=== PATIENT | female | born 1940 | race Caucasian/White ===

== ENCOUNTER → 2016-12-12 | Outpatient (REF) | payer OTHER ==
[2016-12-12 21:10] LABS: CREATININE FOR GFR 1.03 MG/DL (0.55-1.02); GLOMERULAR FILTRATION RATE 55.8 (>39)
== END ==
LOC: M LABDRWAD 20:40
PROVIDERS: ATTEND Orthopaedic Surgery
DX: M25.511 Pain in right shoulder (principal)

== ENCOUNTER → 2017-07-03 | Outpatient (REF) | payer OTHER ==
[2017-07-03 15:50] LABS: BASO % 0.3 % (0.0-1.0); EOS # 0.1 K/mm3 (0.0-0.50); LARGE UNSTAINED CELL # 0.4 K/mm3 (0.0-0.4); LARGE UNSTAINED CELL % 4.6 % (0.0-4.0); LYMPH # 2.5 K/mm3 (1.5-4.5); LYMPH % 27.3 % (24.0-44.0); MEAN CORPUSCULAR HEMOGLOBIN 30.7 pg (27.0-33.0); MEAN CORPUSCULAR VOLUME 93.1 fl (80.0-96.0); MONO # 0.7 K/mm3 (0.0-0.8); MONO % 8.4 % (0.0-5.0); NEUTROPHILS # 4.6 K/mm3 (1.8-7.7); NEUTROPHILS % 58.4 % (36.0-66.0); PLATELET COUNT, AUTOMATED 287 k/mm3 (150-450); RED CELL DISTRIBUTION WIDTH 13.3 % (11.5-14.5); WHITE BLOOD COUNT 7.9 K/mm3 (4.0-10.0)
[2017-07-03 16:28] LABS: ALBUMIN 3.5 GM/DL (3.2-5.2); ALBUMIN/GLOBULIN RATIO 1.03 (1.00-1.93); ALKALINE PHOSPHATASE 53 U/L (45-117); ALT/SGPT 21 U/L (12-78); ANION GAP 12 MEQ/L (8-16); AST/SGOT 19 U/L (15-37); BILIRUBIN,TOTAL 0.3 MG/DL (0.2-1.0); BLOOD UREA NITROGEN 12 MG/DL (7-18); CALCIUM LEVEL 8.5 MG/DL (8.8-10.2); CARBON DIOXIDE LEVEL 24 MEQ/L (21-32); CHLORIDE LEVEL 109 MEQ/L (98-107); CREATININE FOR GFR 0.77 MG/DL (0.55-1.02); GLOMERULAR FILTRATION RATE > 60.0 (>39); GLUCOSE, FASTING 97 MG/DL (83-110); POTASSIUM SERUM 4.2 MEQ/L (3.5-5.1); SODIUM LEVEL 145 MEQ/L (136-145); TOTAL PROTEIN 6.9 GM/DL (6.4-8.2)
[2017-07-06 00:06] LABS: Lyme Disease IgG/IgM Antibodie <0.91 ISR (0.00-0.90); Lyme Disease IgM Ab Quantitati <0.80 index (0.00-0.79)
== END ==
LOC: M LABDRAW1 13:36
PROVIDERS: ATTEND Internal Medicine Rheumatology
DX: R53.83 Other fatigue (principal); Z11.59 Encounter for screening for other viral diseases

== ENCOUNTER → 2018-04-21 | Outpatient (CLI) | payer OTHER | LOC: M ADAMS 13:00 | DX: R06.02 Shortness of breath (principal); R05 Cough | CPT/HCPCS: 71046 ==

== ENCOUNTER 2018-09-24 07:35 | Day surgery (SDC) | payer OTHER ==
[2018-09-24] MEDS: LIDOCAINE 1% SDV 5 ML VIAL As Ordered (06:41)
[~2018-09-24 07:35] MED LIST: ACETAMINOPHEN 325 MG TAB PO; PHENYLEPHRINE HCL 10 % OPHTH. SOL 5ML OS; PROPARACAINE 0.5% OPHTH SOL 15ML OS
[2018-09-24 08:11] LABS: BEDSIDE GLUCOSE 132 MG/DL (83-110)
[2018-09-24] MEDS: CYCLOPENTOLATE 2% OPHTH SOLN 2ML BTL OS (08:35)
[2018-09-24] MEDS: LIDOCAINE 3.5 % 1ML OPHTH TOPICAL GEL OU (08:35)
[2018-09-24] MEDS: OFLOXACIN 0.3 % (OCUFLOX) OPTH SOL 5ML OS (08:35)
[2018-09-24] MEDS: PHENYLEPHRINE 2.5% OPHTH SOL 2ML OS (08:35)
[2018-09-24] MEDS: TROPICAMIDE 1% OPHTH SOLN 2ML OS (08:35)
[2018-09-24] MEDS ORDERED: fentaNYL 100 MCG/2 ML INJECTION (J3010) As Ordered (09:07)
[2018-09-24] MEDS ORDERED: MIDAZOLAM INJ 2 MG/2 ML VIAL (J2250) As Ordered (09:07)
[2018-09-24] MEDS: POVIDONE-IODINE 5% OPHTH PREP SOL 30ML As Ordered (09:43)
[2018-09-24] MEDS: MOXIFLOXACIN IN BSS 0.25MG/0.25ML INTRACAMERAL INJ (OR EYE ONLY)(J2280) As Ordered (09:44)
[2018-09-24] MEDS: HEALON DUET (HEALON 10MG/ML 0.55ML & HEALON ENDOCOAT 30MG/ML 0.85ML) As Ordered (09:44)
[2018-09-24] MEDS: BSS with VANC/TOB/EPI for EYE CASES IR (09:45)
[2018-09-24] MEDS: CEFUROXIME 1MG/0.1ML INTRACAMERAL INJ As Ordered (09:45)
[2018-09-24] MEDS: TRIAMCINOLONE PRES FR 40 MG/ML 1ML(TRIESENCE)(OR EYE ONLY)(J3300 PER 1MG) As Ordered (09:45)
[2018-09-24] MEDS ORDERED: AcetaZOLAMIDE 500 MG ER CAP As Ordered (10:16)
[2018-09-24] MEDS: AcetaZOLAMIDE 500 MG ER CAP PO (10:19)
[2018-09-24] MEDS: KETOROLAC 0.5% OPHTH SOLN OS (10:19)
[2018-09-24] MEDS ORDERED: TRIMETHOBENZAMIDE 300 MG CAP PO (10:30)
== END 2018-09-24 10:32 | disposition home or self-care (01) ==
LOC: M SDC 07:35
DX: H26.9 Unspecified cataract (principal); H40.812 Glaucoma with increased episcleral venous pressure, left eye; E78.5 Hyperlipidemia, unspecified; I65.23 Occlusion and stenosis of bilateral carotid arteries; I10 Essential (primary) hypertension; E11.9 Type 2 diabetes mellitus without complications; E03.9 Hypothyroidism, unspecified; Z79.899 Other long term (current) drug therapy
CPT/HCPCS: 66984

== ENCOUNTER → 2019-05-25 | Outpatient (REF) | payer OTHER ==
[~2019-05-25] MED LIST changes: -ACETAMINOPHEN 325 MG TAB PO; +ASPI81TA85 PO; +ATOR1TAB19 PO; +CBD oil PO; +CLOB05OI TOP; +FLON1SPR NARES; +GLUC15002 PO; +LEVO50TA5 PO; +LISI-538 PO; +MECL12.575 PO; -PHENYLEPHRINE HCL 10 % OPHTH. SOL 5ML OS; +POLY33503 PO; -PROPARACAINE 0.5% OPHTH SOL 15ML OS; +SPIR-10 PO
[2019-05-25 12:43] LABS: BASO # 0.1 10^3/uL (0.0-0.2); BASO % 0.8 % (0.0-1.0); EOS # 0.2 10^3/uL (0.0-0.50); EOS % 2.4 % (0.0-3.0); HEMATOCRIT 43.2 % (36.0-47.0); HEMOGLOBIN 13.8 g/dl (12.0-15.5); LYMPH # 2.2 10^3/uL (1.5-4.5); LYMPH % 28.3 % (24.0-44.0); MEAN CORPUSCULAR HEMOGLOBIN 30.5 pg (27.0-33.0); MEAN CORPUSCULAR HGB CONC 31.9 g/dl (32.0-36.5); MEAN CORPUSCULAR VOLUME 95.6 fl (80.0-96.0); MONO # 0.7 10^3/uL (0.0-0.8); NEUTROPHILS # 4.7 10^3/uL (1.8-7.7); NEUTROPHILS % 59.1 % (36.0-66.0); PLATELET COUNT, AUTOMATED 315 10^3/uL (150-450); RED BLOOD COUNT 4.52 10^6/uL (4.00-5.40); WHITE BLOOD COUNT 7.9 10^3/uL (4.0-10.0)
[2019-05-25 12:57] LABS: ALBUMIN 3.7 GM/DL (3.2-5.2); ALT/SGPT 69 U/L (12-78); BILIRUBIN,TOTAL 0.4 MG/DL (0.2-1.0); BLOOD UREA NITROGEN 17 MG/DL (7-18); CALCIUM LEVEL 8.8 MG/DL (8.8-10.2); CARBON DIOXIDE LEVEL 29 MEQ/L (21-32); CHLORIDE LEVEL 107 MEQ/L (98-107); CHOLESTEROL LEVEL 108 MG/DL (<200); CHOLESTEROL RISK RATIO 3.176 (<5); CREATININE FOR GFR 0.85 MG/DL (0.55-1.30); GLOMERULAR FILTRATION RATE > 60.0 (>39); GLUCOSE, FASTING 131 MG/DL (70-100); HDL CHOLESTEROL 34 MG/DL (>40); LDL CHOLESTEROL 58 MG/DL (<100); NON-HDL-C 74 MG/DL; SODIUM LEVEL 141 MEQ/L (136-145); TOTAL PROTEIN 6.9 GM/DL (6.4-8.2); TRIGLYCERIDES LEVEL 81 MG/DL (<150)
== END ==
LOC: M LABDRWAD 12:03
PROVIDERS: ATTEND Family Medicine
DX: E11.9 Type 2 diabetes mellitus without complications (principal); E03.9 Hypothyroidism, unspecified; E78.5 Hyperlipidemia, unspecified; I10 Essential (primary) hypertension; R42 Dizziness and giddiness

== ENCOUNTER → 2019-12-14 | Outpatient (REF) | payer MEDICARE ==
[~2019-12-14] MED LIST changes: -MECL12.575 PO; +MECL12.589 PO
[2019-12-14 12:56] LABS: BASO % 0.5 % (0.0-1.0); EOS # 0.1 10^3/uL (0.0-0.5); EOS % 1.2 % (0.0-3.0); HEMATOCRIT 45.8 % (36.0-47.0); HEMOGLOBIN 13.8 g/dl (12.0-15.5); LYMPH # 2.2 10^3/uL (1.5-5.0); LYMPH % 27.7 % (24.0-44.0); MEAN CORPUSCULAR HEMOGLOBIN 27.8 pg (27.0-33.0); MEAN CORPUSCULAR HGB CONC 30.1 g/dl (32.0-36.5); MEAN CORPUSCULAR VOLUME 92.3 fl (80.0-96.0); MONO # 0.8 10^3/uL (0.0-0.8); MONO % 10.4 % (0.0-5.0); NEUTROPHILS # 4.8 10^3/uL (1.5-8.5); NEUTROPHILS % 59.7 % (36.0-66.0); PLATELET COUNT, AUTOMATED 329 10^3/uL (150-450); RED BLOOD COUNT 4.96 10^6/uL (4.00-5.40); WHITE BLOOD COUNT 8.1 10^3/uL (4.0-10.0)
[2019-12-14 13:16] LABS: ALBUMIN 3.6 GM/DL (3.2-5.2); ALT/SGPT 18 U/L (12-78); BILIRUBIN,TOTAL 0.4 MG/DL (0.2-1.0); BLOOD UREA NITROGEN 16 MG/DL (7-18); CALCIUM LEVEL 8.8 MG/DL (8.8-10.2); CARBON DIOXIDE LEVEL 29 MEQ/L (21-32); CHLORIDE LEVEL 107 MEQ/L (98-107); CHOLESTEROL LEVEL 126 MG/DL (<200); CREATININE FOR GFR 0.86 MG/DL (0.55-1.30); GLOMERULAR FILTRATION RATE > 60.0 (>39); GLUCOSE, FASTING 136 MG/DL (70-100); HDL CHOLESTEROL 35 MG/DL (>40); LDL CHOLESTEROL 73 MG/DL (<100); NON-HDL-C 91 MG/DL; POTASSIUM SERUM 4.7 MEQ/L (3.5-5.1); SODIUM LEVEL 139 MEQ/L (136-145); TRIGLYCERIDES LEVEL 88 MG/DL (<150)
[2019-12-14 13:32] LABS: MALB URINE SIEMENS 10.9 MG/L; MAU/CREAT RATIO 9.2 MCG/MG (0.0-30.0)
== END ==
LOC: M LAB REF 12:31
PROVIDERS: ATTEND Family Medicine
DX: E11.9 Type 2 diabetes mellitus without complications (principal); I10 Essential (primary) hypertension

== ENCOUNTER → 2020-09-01 | Outpatient (REF) | payer MEDICARE ==
[~2020-09-01] MED LIST changes: -ASPI81TA85 PO; +ASPI81TA86 PO
[2020-09-01 17:53] LABS: BASO # 0.1 10^3/uL (0.0-0.2); BASO % 0.7 % (0.0-1.0); EOS # 0.2 10^3/uL (0.0-0.5); EOS % 2.2 % (0.0-3.0); HEMATOCRIT 42.8 % (36.0-47.0); HEMOGLOBIN 13.2 g/dl (12.0-15.5); LYMPH # 3.2 10^3/uL (1.5-5.0); LYMPH % 32.1 % (24.0-44.0); MEAN CORPUSCULAR HGB CONC 30.8 g/dl (32.0-36.5); MEAN CORPUSCULAR VOLUME 97.3 fl (80.0-96.0); MONO # 1.1 10^3/uL (0.0-0.8); MONO % 11.1 % (0.0-5.0); NEUTROPHILS # 5.4 10^3/uL (1.5-8.5); NEUTROPHILS % 53.4 % (36.0-66.0); PLATELET COUNT, AUTOMATED 375 10^3/uL (150-450); WHITE BLOOD COUNT 10.1 10^3/uL (4.0-10.0)
[2020-09-01 18:10] LABS: ALBUMIN 3.5 GM/DL (3.2-5.2); ALT/SGPT 19 U/L (12-78); BILIRUBIN,TOTAL 0.4 MG/DL (0.2-1.0); BLOOD UREA NITROGEN 15 MG/DL (7-18); CALCIUM LEVEL 9.2 MG/DL (8.8-10.2); CARBON DIOXIDE LEVEL 31 MEQ/L (21-32); CHLORIDE LEVEL 107 MEQ/L (98-107); CHOLESTEROL LEVEL 150 MG/DL (<200); CHOLESTEROL RISK RATIO 3.947 (<5); CREATININE FOR GFR 0.93 MG/DL (0.55-1.30); GLOMERULAR FILTRATION RATE > 60.0 (>39); GLUCOSE, FASTING 128 MG/DL (70-100); HDL CHOLESTEROL 38 MG/DL (>40); LDL CHOLESTEROL 88 MG/DL (<100); NON-HDL-C 112 MG/DL; POTASSIUM SERUM 4.9 MEQ/L (3.5-5.1); SODIUM LEVEL 142 MEQ/L (136-145); TOTAL PROTEIN 7.1 GM/DL (6.4-8.2); TRIGLYCERIDES LEVEL 119 MG/DL (<150)
[2020-09-01 18:36] LABS: MALB URINE SIEMENS 5.7 MG/L
== END ==
LOC: M LABDRWAD 16:21
PROVIDERS: ATTEND Nurse Practitioner Family
DX: I10 Essential (primary) hypertension (principal); E78.5 Hyperlipidemia, unspecified; E03.9 Hypothyroidism, unspecified

== ENCOUNTER → 2020-12-14 | Outpatient (REF) | payer MEDICARE ==
[~2020-12-14] MED LIST changes: -LISI-538 PO; +LISI20TA33 PO; -MECL12.589 PO; +MECL12.590 PO
[2020-12-14 17:18] LABS: BASO % 0.5 % (0.0-1.0); EOS # 0.2 10^3/uL (0.0-0.5); EOS % 1.9 % (0.0-3.0); HEMATOCRIT 43.6 % (36.0-47.0); HEMOGLOBIN 13.3 g/dl (12.0-15.5); LYMPH # 2.2 10^3/uL (1.5-5.0); LYMPH % 26.1 % (24.0-44.0); MEAN CORPUSCULAR HGB CONC 30.5 g/dl (32.0-36.5); MONO # 0.8 10^3/uL (0.0-0.8); MONO % 9.5 % (0.0-5.0); NEUTROPHILS # 5.1 10^3/uL (1.5-8.5); NEUTROPHILS % 61.5 % (36.0-66.0); PLATELET COUNT, AUTOMATED 305 10^3/uL (150-450); RED BLOOD COUNT 4.59 10^6/uL (4.00-5.40); WHITE BLOOD COUNT 8.2 10^3/uL (4.0-10.0)
[2020-12-14 17:39] LABS: ALBUMIN 3.7 GM/DL (3.2-5.2); ALT/SGPT 19 U/L (12-78); BILIRUBIN,TOTAL 0.3 MG/DL (0.2-1.0); BLOOD UREA NITROGEN 18 MG/DL (7-18); C REACTIVE PROTEIN QUANTITATIV 0.56 MG/DL (0.00-0.30); CALCIUM LEVEL 9.3 MG/DL (8.8-10.2); CARBON DIOXIDE LEVEL 28 MEQ/L (21-32); CHLORIDE LEVEL 102 MEQ/L (98-107); CREATININE FOR GFR 0.93 MG/DL (0.55-1.30); GLOMERULAR FILTRATION RATE > 60.0 (>39); GLUCOSE, FASTING 140 MG/DL (70-100); SODIUM LEVEL 138 MEQ/L (136-145); TOTAL PROTEIN 6.9 GM/DL (6.4-8.2)
[2020-12-14 18:00] LABS: HEPATITIS B SURFACE ANTIGEN NEGATIVE (NEGATIVE)
[2020-12-14 18:20] LABS: ERYTHROCYTE SEDIMENTATION RATE 22 mm/hr (0-30)
== END ==
LOC: M SFHCRHEU 12:20
PROVIDERS: ATTEND Internal Medicine
DX: L40.50 Arthropathic psoriasis, unspecified (principal)

== ENCOUNTER 2020-12-26 12:12 | Outpatient (CLI) | payer MEDICARE ==
[~2020-12-26] VITALS: Ht 170.2 cm; Wt 85.4 kg
[2020-12-26] VITALS (8 sets, daily range): BP systolic 139–170; BP diastolic 64–84
[~2020-12-26 12:12] MED LIST changes: +ALBUTEROL SULFATE 2.5 MG/0.5 ML INH NEB SOLN INH PRN; +EPINEPHrine INJ 1 MG/ML 1ML AMP IM PRN; +diphenhydrAMINE 50MG/ML VIAL (J1200) IV PRN; +methylPREDNISolone 125MG 2ML VIAL IV PRN
[2020-12-26] MEDS ORDERED: NS 1,000 ML IV SCH (12:30)
[2020-12-26] MEDS ORDERED: ACETAMINOPHEN 650MG PO PRIOR TO INFUSION PO ONE (12:30)
[2020-12-26] MEDS ORDERED: INFLIXIMAB BIOSIMILAR 400 MG in NS 210 ML IV ONE (12:30)
[2020-12-26] MEDS ORDERED: diphenhydrAMINE 25MG PO PRIOR TO INFUSION PO ONE (12:30)
== END 2020-12-26 16:20 | disposition home or self-care (01) ==
LOC: M INFU 12:12
PROVIDERS: ATTEND Internal Medicine
DX: L40.50 Arthropathic psoriasis, unspecified (principal)
CPT/HCPCS: 96365; 96366; Q5103

== ENCOUNTER 2021-01-09 12:56 | Outpatient (CLI) | payer MEDICARE ==
[2021-01-09] VITALS (8 sets, daily range): BP systolic 128–156; BP diastolic 67–77
[~2021-01-09] VITALS: Ht 170.2 cm; Wt 85.4 kg
[2021-01-09] MEDS ORDERED: ACETAMINOPHEN TAB 650MG DOSE (2X325MG) PO ONE (13:30)
[2021-01-09] MEDS ORDERED: diphenhydrAMINE 25MG CAP PO ONE (13:30)
[2021-01-09] MEDS ORDERED: INFLIXIMAB BIOSIMILAR 400 MG in NS 210 ML IV ONE (13:30)
== END 2021-01-09 16:20 | disposition home or self-care (01) ==
LOC: M INFU 12:56
PROVIDERS: ATTEND Internal Medicine
DX: L40.50 Arthropathic psoriasis, unspecified (principal)
CPT/HCPCS: 96365; 96366; Q5103

== ENCOUNTER 2021-02-06 12:53 | Outpatient (CLI) | payer MEDICARE ==
[~2021-02-06] VITALS: Ht 170.2 cm; Wt 85.4 kg
[~2021-02-06 12:53] MED LIST changes: +MECL-136 PO; -MECL12.590 PO
[2021-02-06 13:05] VITALS: BP 133/63
[2021-02-06] MEDS ORDERED: NS 1,000 ML IV SCH (13:30)
[2021-02-06] MEDS ORDERED: diphenhydrAMINE 25MG PO PRIOR TO INFUSION PO ONE (13:30)
[2021-02-06] MEDS ORDERED: ACETAMINOPHEN 650MG PO PRIOR TO INFUSION PO ONE (13:30)
[2021-02-06] MEDS ORDERED: INFLIXIMAB BIOSIMILAR 400 MG in NS 210 ML IV ONE (13:30)
[2021-02-06 13:45] VITALS: BP 154/77
[2021-02-06 14:15] VITALS: BP 142/66
[2021-02-06 14:30] VITALS: BP 132/64
[2021-02-06 14:57] VITALS: BP 135/60
[2021-02-06 15:28] VITALS: BP 145/70
== END 2021-02-06 15:35 | disposition home or self-care (01) ==
LOC: M INFU 12:53
PROVIDERS: ATTEND Internal Medicine
DX: L40.50 Arthropathic psoriasis, unspecified (principal)
CPT/HCPCS: 96365; 96366; Q5103

== ENCOUNTER 2021-04-03 13:24 | Outpatient (CLI) | payer MEDICARE ==
[~2021-04-03] VITALS: Ht 170.2 cm; Wt 85.4 kg
[~2021-04-03 13:24] MED LIST changes: +ACETAMINOPHEN 650MG PO PRIOR TO INFUSION PO ONE; +INFLIXIMAB BIOSIMILAR 400 MG in NS 210 ML IV ONE; +NS 1,000 ML IV SCH; +diphenhydrAMINE 25MG PO PRIOR TO INFUSION PO ONE
[2021-04-03 14:16] VITALS: BP 129/64
[2021-04-03 14:45] VITALS: BP 138/67
[2021-04-03 15:15] VITALS: BP 140/69
[2021-04-03 15:45] VITALS: BP 136/65
[2021-04-03 16:15] VITALS: BP 134/71
== END 2021-04-03 16:20 | disposition home or self-care (01) ==
LOC: M INFU 13:24
PROVIDERS: ATTEND Internal Medicine
DX: L40.50 Arthropathic psoriasis, unspecified (principal)
CPT/HCPCS: 96365; 96366; Q5103

== ENCOUNTER 2021-04-22 08:23 | Inpatient (IN) | payer MEDICARE ==
[2021-04-22] VITALS (8 sets, daily range): BP systolic 96–133; BP diastolic 51–82
[~2021-04-22] VITALS: Ht 170.2 cm; Wt 78.6 kg
[~2021-04-22 08:23] MED LIST changes: -ACETAMINOPHEN 650MG PO PRIOR TO INFUSION PO ONE; -ALBUTEROL SULFATE 2.5 MG/0.5 ML INH NEB SOLN INH PRN; -EPINEPHrine INJ 1 MG/ML 1ML AMP IM PRN; -INFLIXIMAB BIOSIMILAR 400 MG in NS 210 ML IV ONE; -NS 1,000 ML IV SCH; -diphenhydrAMINE 25MG PO PRIOR TO INFUSION PO ONE; -diphenhydrAMINE 50MG/ML VIAL (J1200) IV PRN; -methylPREDNISolone 125MG 2ML VIAL IV PRN
[2021-04-22] MEDS ORDERED: ACUL0.5S (08:58)
[2021-04-22] MEDS ORDERED: AMLO1TAB25 PO (08:58)
[2021-04-22] MEDS ORDERED: METF-838 PO (08:58)
[2021-04-22 08:59] LABS: BASO % 0.2 % (0.0-1.0); EOS % 0.2 % (0.0-3.0); HEMATOCRIT 36.2 % (36.0-47.0); LYMPH # 1.7 10^3/uL (1.5-5.0); MEAN CORPUSCULAR HEMOGLOBIN 29.9 pg (27.0-33.0); MEAN CORPUSCULAR HGB CONC 33.1 g/dl (32.0-36.5); MEAN CORPUSCULAR VOLUME 90.3 fl (80.0-96.0); MONO # 1.9 10^3/uL (0.0-0.8); MONO % 15.3 % (2.0-8.0); NEUTROPHILS # 8.3 10^3/uL (1.5-8.5); NEUTROPHILS % 68.7 % (36.0-66.0); PLATELET COUNT, AUTOMATED 446 10^3/uL (150-450); RED BLOOD COUNT 4.01 10^6/uL (4.00-5.40)
[2021-04-22] MEDS ORDERED: predniSONE 20 MG TAB PO SCH (09:00)
[2021-04-22] MEDS ORDERED: COLCHICINE 0.6 MG TABLET PO SCH (09:00)
[2021-04-22] MEDS ORDERED: METOPROLOL 5 MG/5 ML VIAL IV SCH (09:05)
[2021-04-22] MEDS ORDERED: ENOXAPARIN 100MG/1ML SYRINGE (J1650 PER 10MG) SC ONE (09:05)
--- NOTE | 2021-04-22 09:07 | REP ---
INDICATION: CHEST PAIN COMPARISON: 04/21/2018 TECHNIQUE: Portable AP view of the chest FINDINGS: The mediastinum and cardiac silhouette are stable and within normal limits for portable technique. Stable cardiomegaly noted. The lung garcia are clear without acute consolidation, effusion, or pneumothorax. Skeletal structures are intact. IMPRESSION: No acute cardiopulmonary process appreciated. <Electronically signed by Vito Haque > 04/22/21 0903
[2021-04-22 09:19] LABS: WHITE BLOOD COUNT 12.1 10^3/uL (4.0-10.0)
[2021-04-22 09:26] LABS: INR 1.01; PROTHROMBIN TIME 13.5 SECONDS (12.5-14.3)
[2021-04-22 09:27] LABS: PARTIAL THROMBOPLASTIN TIME 31.6 SECONDS (24.2-38.5)
[2021-04-22] MEDS ORDERED: GABA-282 PO (09:35)
[2021-04-22] MEDS ORDERED: POLY510P14 PO (09:35)
[2021-04-22] MEDS ORDERED: ZIOPTAN OS (09:35)
[2021-04-22] MEDS ORDERED: ASPI81TA26 PO (09:35)
[2021-04-22] MEDS ORDERED: COMB0.2S OS (09:35)
[2021-04-22] MEDS ORDERED: NS 500 ML IV ONE (09:40)
[2021-04-22 09:42] LABS: ALBUMIN 2.9 GM/DL (3.2-5.2); ALT/SGPT 43 U/L (12-78); BILIRUBIN,DIRECT 0.3 MG/DL (0.0-0.2); BILIRUBIN,TOTAL 0.8 MG/DL (0.2-1.0); BLOOD UREA NITROGEN 20 MG/DL (7-18); CALCIUM LEVEL 7.9 MG/DL (8.8-10.2); CARBON DIOXIDE LEVEL 24 MEQ/L (21-32); CHLORIDE LEVEL 89 MEQ/L (98-107); CREATININE FOR GFR 0.69 MG/DL (0.55-1.30); GLOMERULAR FILTRATION RATE > 60.0 (>39); GLUCOSE, FASTING 139 MG/DL (70-100); MAGNESIUM LEVEL 2.1 MG/DL (1.8-2.4); NT-PRO BNP 3012 PG/ML (<450); POTASSIUM SERUM 4.7 MEQ/L (3.5-5.1); SODIUM LEVEL 121 MEQ/L (136-145)
[2021-04-22 10:02] LABS: OSMOLALITY SERUM 258 MOSM/KG (280-301)
[2021-04-22] MEDS ORDERED: AMIODARONE 150MG/3ML INJ (J0282) IVP STA (10:06)
[2021-04-22] MEDS ORDERED: AMIODARONE HCL 150 MG in IV 1 EA IV ONE ×2 (10:35→15:00)
[2021-04-22 11:49] LABS: OSMOLALITY URINE 646 MOSM/KG (50-1400)
[2021-04-22 12:20] LABS: SODIUM,RANDOM URINE < 10 MEQ/L
[2021-04-22] MEDS: METOPROLOL TART 25 MG TABLET PO SCH ×2 (15:09→22:00)
[2021-04-22 15:13] LABS: ERYTHROCYTE SEDIMENTATION RATE 59 mm/hr (0-30)
[2021-04-22] MEDS ORDERED: GLUCAGON INJ 1MG VIAL SC PRN (15:20)
[2021-04-22] MEDS ORDERED: DEXTROSE 50% 50 ML SYRINGE IV PRN (15:20)
[2021-04-22] MEDS ORDERED: GLUCOSE 4GM CHEW TABLET PO PRN (15:20)
[2021-04-22] MEDS ORDERED: MECLIZINE 12.5 MG TAB PO PRN (16:00)
[2021-04-22] MEDS ORDERED: predniSONE 20 MG TAB PO ONE (16:25)
[2021-04-22] MEDS ORDERED: COLCHICINE 0.6 MG TABLET PO ONE (16:25)
--- NOTE | 2021-04-22 16:28 | CR ---
CONSULTATION DATE: 04/22/2021 REFERRING PHYSICIAN: Dr. Garcia INDICATION: Atrial flutter with rapid ventricular response. HISTORY OF PRESENT ILLNESS: Mrs. Ray is previously unknown to me. She is a 80-year-old female who presented to the emergency room earlier today after she has had an approximately two days history of dyspnea. On arrival, she was found to be in atrial flutter with rapid ventricular response with ventricular rate approximately 150 beats per minute. That was the same rate that was discovered by EMS. She was given initially 5 mg of IV metoprolol which led to drop in blood pressure into 80s but did not have any significant effect on her heart rate otherwise. Subsequently 150 mg of IV amiodarone was administered after a bolus of fluids and recovery of systolic blood pressure. It led to transient slowing but at the time of my evaluation, her heart rate is still around 150 beats per minute. The patient tells me that she was at her baseline condition until approximately Saturday which was April 17. She started noticing a sharp but also at times pressure-like sensation over her left upper chest and left shoulder. She was seen by her primary care physician the following day on April 18. He felt that it was most likely related to arthritis and costochondritis in the shoulders and showed her some exercises for her shoulder. The pain persisted then another day but on it resolved but she started having sensation of shortness of breath and then eventually came earlier today because the dyspnea was progressive. She did not have any sensation of palpitations. She denies any recent signs of infection, specifically she denies any history of fever, chills. There was no history of rash, no sweats. She has had GI symptoms, most importantly nausea but no vomiting and she has been constipated. After arrival to emergency room, testing was performed and included 12-lead ECG revealing atrial flutter with 2:1 conduction and wide QRS complex with RBBB and left posterior hemiblock type of morphology. She also had a chest x-ray that was consistent with mild cardiomegaly and no other additional abnormalities. Consequently an echocardiogram was performed and that revealed presence of approximately moderate but noncompressive pericardial effusion and overall probably mildly reduced left ventricular systolic function. There was dilated aortic root at 4.1 cm which is chronic and mild aortic insufficiency. PAST MEDICAL HISTORY: 1. Arterial hypertension. 2. History of psoriasis with psoriatic arthritis. The patient as of recently was started on Remicade infusions in December and her last infusion was on April 03. 3. Hypertension. 4. Known chronic right bundle branch block. 5. Known mild aortic insufficiency. 6. Remote history of stroke. This was an incidental finding on neuroimaging. She never had any clinical event that would resemble stroke. She subsequently had a loop recorder implanted that never revealed any arrhythmias and it was eventually explanted last year. 7. Chronic exertional dyspnea approximately NYHA class 3. 8. Bilateral carotid artery stenosis, less than 50% on the right and approximately 60-70% on the left. 9. Known dilated aortic root. 10. She was just diagnosed with type 2 diabetes last week and was prescribed metformin that she was blaming her current symptoms on. SURGICAL HISTORY: Reveal monitor implant and then also removal. SOCIAL HISTORY: The patient is and also . She lives with her grandson and his . She used to smoke but quit more than 40 years ago. There is no significant alcohol use. REVIEW OF SYSTEMS: She denies any recent fever and chills. She had chest pain last week from Saturday through Saturday. She reports onset of dyspnea on . Nausea has been present since Saturday. She has been constipated and has not had any bowel movements for four days. She reports intermittent peripheral edema which has been chronic. She reports generalized muscle and joint pains which has been chronic and felt to be due to her arthritis. No history of syncope or near-syncope. The rest as per HPI or otherwise negative. PHYSICAL EXAMINATION: Mrs. Ray is an elderly, overweight woman. She appears approximately her age. She appears mildly uncomfortable but in no apparent distress. She is alert and oriented and appropriate and provides a reasonably good history. Blood pressure 109/73, heart rate around 145, regular. Saturation is 99% on three liters of oxygen. Lungs are clear with good air movement. Heart exam reveals irregular tachycardia. I do not appreciate any distinct murmur, gallop or rub but it will be difficult to appreciate in a setting of tachycardia. JVP does not appear high. Abdomen is obese, soft, protuberant not but distended as such. I do not appreciated any hepatosplenomegaly or shifting dullness. She has about 1+ edema of her lower extremities. Peripheral pulses are palpable. Neurologically, I do not appreciate any gross deficits. Her speech is intact and she moves all four extremities. LABORATORIES: Basic metabolic panel reveals a sodium 121, potassium 4.7, BUN 20, creatinine 0.7, glucose 139. Liver function tests are normal with the exception of marginally elevated bilirubin as 0.3 and the direct bilirubin total is 0.8. M-[id number]-[id number] is 3000. Albumin is 2.9, TSH 1.2 and free T4 1.7. INR 1.0. CBC reveals WBC count 12, hemoglobin 12.0, hematocrit 26 and platelet count 446,000. Chest x-ray: As per HPI. Echocardiogram revealed probably mildly reduced LV systolic function but it is difficult to ascertain in the setting of prominent tachycardia. There is aortic sclerosis with trace insufficiency, dilated aortic root at 4.1 cm which is known to be chronic and approximately moderate but noncompressive pericardial effusion. EKG: As per HPI. ASSESSMENT AND PLAN: Mrs. Ray is a 80-year-old female who has chronic right bundle branch block and hypertensive heart disease who presents approximately a 2 to 3 day history of dyspnea that was preceded by 2 or 3 days of chest discomfort. She was seen by her primary care physician on April 19 at which point her heart rate was not elevated so I have to assume that her atrial flutter has been new since. It is very likely that it was triggered by pericardial effusion, the etiology of which remains somewhat mysterious. She did not provide any history to suggest recent infection. Of note, she has chronic psoriatic arthritis and has been started on Remicade infusions in December with the last one was administered just a few weeks ago. That certainly can be etiology of her effusion because both psoriatic arthritis as well as Remicade treatment have been associated with this rare complication. She also is profoundly hyponatremic. This is not a typical complication in this setting and I am a little bit perplexed as to what would be the cause. 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 As far as the management of atrial flutter is concerned, she was started on Lovenox. I will give her additional dose of IV amiodarone over two hours and will give her low dose beta gisell orally. Hopefully that will be helpful in slowing down her heart rate. She received a single dose of Lovenox and we will continue the anticoagulation in this form for the time being. I am afraid to start oral anticoagulation because she may need a pericardiocentesis or even pericardial window depending on the clinical course. As far as the pericardial effusion is concerned, we sent appropriate blood work. I plan to obtain a CT scan of the chest once her heart rate is a little bit better controlled. I want to make sure that there no signs of lymphadenopathy or other hints to suggest underlying malignancy even though I consider that unlikely. Once that information is available, we will have to decide on management. I believe that she most likely will need steroid administration but I am going to wait until we have a little more information in that regard. I talked to the patient and her daughter who was at bedside. I explained to them that I can imagine scenarios that she may need cardioversion but probably not immediately as the risk of relapse is certainly very high. I also can imagine that she would benefit from either pericardiocentesis or pericardial window. We will see how her condition evolves in that regard. SWETHA
[2021-04-22 16:41] LABS: RHEUMATOID FACTOR QUANT < 10.0 IU/ML (<15.0)
[2021-04-22 16:44] LABS: TROPONIN I < 0.02 NG/ML (< 0.10)
[2021-04-22] MEDS: MIRALAX *UNIT DOSE* 17GM PACKET PO PRN (16:44)
[2021-04-22] MEDS: ATORVASTATIN 10 MG TAB PO SCH (16:44)
[2021-04-22] MEDS: LEVOTHYROXINE 50MCG TABLET (0.05MG) PO SCH (16:45)
[2021-04-22] MEDS: HumaLOG INSULIN (NovoLOG) PER UNIT SC SCH ×2 (17:27→21:00)
[2021-04-22] MEDS ORDERED: NS 250 ML IV ONE (18:30)
[2021-04-22 18:45] LABS: BLOOD UREA NITROGEN 21 MG/DL (7-18); CARBON DIOXIDE LEVEL 24 MEQ/L (21-32); CHLORIDE LEVEL 91 MEQ/L (98-107); CREATININE FOR GFR 0.72 MG/DL (0.55-1.30); GLOMERULAR FILTRATION RATE > 60.0 (>39); GLUCOSE, FASTING 134 MG/DL (70-100); POTASSIUM SERUM 4.7 MEQ/L (3.5-5.1); SODIUM LEVEL 123 MEQ/L (136-145)
[2021-04-22] MEDS ORDERED: AMIODARONE HCL 360 MG in IV 1 EA IV SCH (19:00)
--- NOTE | 2021-04-22 19:47 | ECGEPIP ---
[facility] - ED Test Date: 2021-04-22 Pat Name: SHARLENE CALERO Department: Room: - Gender: Female Orthopaedic Doctor: joseph : 1940 Requested By: Darlene Ledezma Order Number: [id number] Reading MD: Darlene Ledezma Measurements Intervals [place] Rate: 154 P: MA: QRS: 95 QRSD: 128 T: -35 QT: 292 QTc: 467 Interpretive Statements ATRIAL FLUTTER Right bundle branch block Cannot rule out Inferior infarct , age undetermined No prior ECG for comparison Electronically Signed on 04-22-2021 19:47:33 EDT by Darlene Ledezma
--- NOTE | 2021-04-22 20:16 | HPEPDOC ---
[facility] Medical History & Physical Date of Admission Apr 22, 2021 Date of Service: Apr 22, 2021 Attending Physician: Geovani Garcia MD History and Physical CHIEF COMPLAINT: Progressive Dyspnea HISTORY OF PRESENT ILLNESS: SUBJECTIVE: Patient is a 80-year-old female with a PMH significant for newly diagnosed Type 2 DM, HTN, possible CHF, s/p loop recorder (per Rheumatology note, no date specified), and psoriatic arthritis presents with progressive dyspnea and chest discomfort with onset 4 days ago. T he patient's dyspnea is worsened by exertion. 4 days ago (04/18/2021), the patient presented to her primary care clinic in [place], complaining of chest pain radiating into her left shoulder blade. At that time, the patient was diagnosed with diabetes and costochondritis. EKG, blood pressure, and O2 saturation were all within normal limits during this clinic visit. She was started on metformin 500 mg daily at that time. Upon presentation to the ER, the patient's systolic blood pressure was in the 130s and following Lopressor 5 mg administration, the systolic blood pressure decreased to 85. In the ER, the patient's received 5 mg of Lopressor after which the systolic blood pressure increased to 100. Dr. Miller was consulted and recommended amiodarone administration and Lovenox to be administered, per his recommendation. An amiodarone 100 mg slow infusion over two hours was started in the ED. The patient's heart rate remained in the 140s, with continued atrial flutter with RVR and his systolic blood pressure within the 100s during our medical examination. The patient reports that her health care proxy is her son, Donato Ray, to be contacted at [phone]. Initially, during this medical interview, the patient agreed to be DNR/DNI. However, when the most form was about to be signed. The [id number] was in the room and convince the patient to reconsider. Therefore, the patient is full code now. The patient also reports that she has increased her water intake to appr oximately 1 1/2 gallons per day. She reports feeling thirsty, however, also reports decreased appetite. She also states chronic history of dizziness and lightheadedness. She reports that she was referred to neurology where an MRI scan of the head was done. The diagnosis of stroke in her chart in the rheumatology clinic was likely secondary to MRI scanning findings. The patient does not report presenting with stroke symptoms to any medical facility. The patient also reports a history of numbness and tingling prompting an MRI spine scan prior to the diagnosis of psoriatic arthritis. It is difficult to elicit details of her neurological diagnoses and workup as the patient states that this was years ago and cannot remember her presenting symptoms and complaints. The patient states that she recently started to ambulate with a rolling walker due to feeling dizzy and lightheaded frequently. PAST MEDICAL HISTORY: 1. Newly diagnosed type 2 diabetes mellitus. 2. Hypertension. 3. Heart failure with preserved ejection fraction, according to 2020 Echo 4. Diverticulosis. 5. Psoriatic arthritis, with recent start on Remicade infusions in December, last infusion on April 03. 6. Glaucoma. 7. Stroke findings on prior MRI. 8. Known chronic RBBB. PAST SURGICAL HISTORY: (Elicited from prior rheumatology clinic note) 1. Hysterectomy. 2. Loop recorder. 3. Bilateral cataract surgery. SOCIAL HISTORY: The patient lives at home in a two-story house with a full set of approximately 20 stairs to go to her room upstairs. The only restroom is on the first floor, although the patient does have a portable restroom upstairs. Her 2 grandchildren live with her and are in their late 20s. Denies alcohol, smoking history, drug use. The patient lists her son, Donato Ray as her healthcare proxy, to be reached at [phone]. FAMILY HISTORY: Father: in his 90s, possibly from dementia Mother: at the age of 80 from an [place] ALLERGIES: Please see below. REVIEW OF SYSTEMS: CONSTITUTIONAL: Denies fevers, chills, night sweats, weight changes. HEENT: Denies recent visual loss or visual changes, denies rhinorrhea, sore throat, and cough. CARDIOVASCULAR: denies chest pain. RESPIRATORY: shortness of breath stated in HPI. Patient also reports feeling congestion in her chest. GASTROINTESTINAL: feels nauseated since starting Metformin (500mg tab daily since 04/18/2021), cyclic pattern since this , 04/20/2021. GENITOURINARY: Denies dysuria or other vaginal discharge. SKIN: Denies any new skin lesions or rashes. MUSCULOSKELETAL: Denies any new weakness. NEUROLOGICAL: Denies any numbness or tingling at this time. PSYCHIATRIC: Denies any confusion. ENDOCRINE: Reports polydipsia and decreased appetite as summarized in HPI. HEMATOLOGIC/LYMPHATIC: denies easy bruising/bleeding. HOME MEDICATIONS: Please see below. PHYSICAL EXAMINATION: VITAL SIGNS: Temperature 97.5, oral, pulse 146, respiratory rate 22, blood pressure 100/71, pulse oximetry 98% on room air. GENERAL APPEARANCE: Patient is a pleasant female lying in the supine position with her head rest slightly elevated. The patient appears in mild physical distress, however, is able to complete full sentences and is cooperative on exam. HEENT:. No scleral icterus, conjunctivae and lids normal, nares patent, oral mucosa slightly dry. CARDIOVASCULAR: Regularly irregular rhythm, tachycardia. , No murmurs, rubs or gallops LUNGS: Bibasilar mild crackles appreciated. ABDOMEN: Soft, nontender, nondistended, bowel sounds present in all 4 quadrants. EXTREMITIES: +1 pitting edema up to knees. Pedal pulses equal and +2 bilat erally. NEUROLOGICAL:. Patient is oriented to self, place and time. PSYCHIATRIC: Pleasant, able to follow conversation and give appropriate history, and cooperative on exam. LABORATORY DATA: See below. IMAGING: Chest x-ray 04/22/2021: No acute cardiopulmonary process appreciated. MICROBIOLOGY: Please see below. ASSESSMENT: Patient is a 80-year-old female with a past medical history significant for newly diagnosed diabetes mellitus type 2, and according to echocardiogram findings from today and interpreted by Dr. Miller, the patient has hypertensive congestive heart failure. She presented today with progressive dyspnea and chest discomfort over the last 3 days. PLAN: #Atrial flutter with rapid ventricular rate secondary to pericardial effusion vs heart failure exacerbation Patient presented with heart rate in the 150s and continued to have atrial flutter with rapid ventricular rate, despite Lopressor and amiodarone infusion in the ED. Dr. Miller was consulted, inpatient service team appreciates cardiology consult. Per Dr. Miller's recommendations: -Complete additional amiodarone infusion at slow rate of 100 mg, continue additional infusions ordered to bring down rate. -Continue Lopressor PO. -Continue SC Lovenox BID. (not considering oral at this time due to possibility of patient needing pericardiocentesis or pericardial window). -This is likely secondary to pericardial effusion (etiology of pericardial effusion, not yet known, possibly secondary to Remicade treatment, which patient started for psoriatic arthritis in December 2020.) -Not considering cardioversion at this time due to possible recurrence of atrial flutter, given existence of pericardial effusion. #Pericardial effusion. Etiology unknown at this time, considerations include history of psoriatic arthritis, Remicade administration, or neoplastic etiology. Patient has a history of psoriatic arthritis. Patient received Remicade beginning in December, which has a rare complication of pericardial effusions. The case was discussed over the phone with [facility], Dr. Sierra Moreno, who recommended prednisone and colchicine administration at this time. Colchicine administration will be 0.3 mg daily (decreased dose) since the patient is also receiving amiodarone (amiodarone predisposes patient to colchicine toxicity.) May consider pericardiocentesis or pericardial window if steroids and colchicine does not work to decrease pericardial effusion volume. #Hyponatremia. Dr. Miller suspects SIADH secretion in the setting of resulting in hyponatremia. Patient has a history of heart failure, therefore normal saline was not started since sodium level was 121 and threshold in heart failure is treatment begins. If sodium level is less than 120, consider gentle hydration (gentle because patient has pericardial effusion and heart failure). Paraneoplastic etiology cannot be ruled out at this time. Per Dr. Miller, consider CT chest with contrast after atrial flutter has reso lved to rule out paraneoplastic syndrome, lymphadenopathy. #Hypertensive heart failure Aspirin on hold in case of need for pericardial window or pericardiocentesis procedure #Hypertension Lisinopril, Home medication continued with holding parameters of SBP <120 #Foq-[id number]-wwsihakye diabetes mellitus type 2. Continue sliding scale insulin. Hold home medication of metformin at this time. Hypoglycemic protocol in place. 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 Continue home medication Gabapentin #History of dizziness. Continue home medication, Meclizine 12.5 mg DVT prophylaxis: Patient is receiving Lovenox 80 mg twice a day subcutaneous. Disposition: Consider subacute rehabilitation after discharge due to patient's two-story living condition. Consider requesting PFS services after more clear course of medical management is determined. Vital Signs Vital Signs Date Time Temp Pulse Resp B/P (MAP) Pulse Ox O2 Delivery O2 Flow Rate FiO2 04/22/21 10:21 146 100/71 (81) 98 04/22/21 09:45 Nasal Cannula 3.0 04/22/21 09:42 97.5 04/22/21 08:34 22 Laboratory Data Labs 24H Laboratory Tests 2 04/22/21 08:44: Prothrombin Time 13.5, Prothromb Time International Ratio 1.01, Activated Partial Thromboplast Time 31.6 04/22/21 08:45: Immature Granulocyte % (Auto) 1.6, Neutrophils (%) (Auto) 68.7H, Lymphocytes (%) (Auto) 14.0L, Monocytes (%) (Auto) 15.3H, Eosinophils (%) (Auto) 0.2, Basophils (%) (Auto) 0.2, Neutrophils # (Auto) 8.3, Lymphocytes # (Auto) 1.7, Monocytes # (Auto) 1.9H, Eosinophils # (Auto) 0.0, Basophils # (Auto) 0.0, Nucleated Red Blood Cells % (auto) 0.0, Anion Gap 8, Glomerular Filtration Rate > 60.0, Osmolality 258L, Calcium Level 7.9L, Magnesium Level 2.1, Total Bilirubin 0.8, Direct Bilirubin 0.3H, Aspartate Amino Transf (AST/SGOT) 26, Alanine Aminotransferase (ALT/SGPT) 43, Alkaline Phosphatase 62, FJ-Rjk-D-Type Natriur etic Peptide 3012H, Total Protein 7.0, Albumin 2.9L, Albumin/Globulin Ratio 0.7L, Thyroid Stimulating Hormone (TSH) 1.250, Free Thyroxine 1.70H 04/22/21 08:46: POC Glucose (Misc Panel) 149H, POC Sodium (Misc Panel) 120L, POC Potassium (Misc Panel) 4.5, POC Chloride (Misc Panel) 86L, POC Total CO2 (Misc Panel) 25.0, POC Blood Urea Nitrogen (Misc Panel 21, POC Ionized Calcium (Misc Panel) 4.2L, POC Creatinine (Misc Panel) 0.8, POC Hematocrit (Misc Panel) 39.0 04/22/21 08:54: POC Troponin I (Misc) 0.01 04/22/21 11:34: Urine Osmolality 646, Urine Random Creatinine 120.0, Urine Random Sodium < 10 CBC/BMP Laboratory Tests 04/22/21 08:45 Microbiology Microbiology 04/22/21 Respiratory Virus Panel (PCR) ([facility]) - Final, Complete Home Medications Scheduled Amlodipine Besylate (Amlodipine Besylate) 10 Mg Tablet, 10 MG PO DAILY Aspirin (Aspirin EC) 81 Mg Tablet.dr, 81 MG PO DAILY Atorvastatin Calcium (Atorvastatin Calcium) 10 Mg Tab, 10 MG PO DAILY Brimonidine Tartrate/Timolol (Combigan 0.2%-0.5% Eye Drops) 5 Ml Drops, 1 DROP OU BID Gabapentin (Gabapentin) 300 Mg Capsule, 300 MG PO QHS Glucosamine/Chondroitin/C/Herbert (Glucosamine-Chondroitin Capsul) 1 Cap Cap, 2 CAP PO DAILY Levothyroxine Sodium (Levothyroxine Sodium) 50 Mcg Tab, 50 MCG PO DAILY Lisinopril (Lisinopril) 20 Mg Tab, 20 MG PO DAILY Metformin HCl (Metformin HCl ER) 500 Mg Tab.er.24h, 500 MG PO QHS [Zioptan] , 1 DROP OS QPM Scheduled PRN Fluticasone Propionate (Flonase Allergy Relief) 50 Mcg/Act Spr, 2 SPRAY NARES DAILY PRN for CONGESTION Meclizine HCl (Meclizine HCl) 12.5 Mg Tab, 12.5 MG PO TID PRN for DIZZINESS Polyethylene Glycol 3350 (Polyethylene Glycol 3350) 510 Gm Powder, 17 GM PO DAILY PRN for CONSTIPATION Allergies Coded Allergies: No Known Allergies (Unverified , 09/24/18) A-FIB/CHADSVASC A-FIB History Current/History of A-Fib/PAF?: Yes Current PO Anticoag Therapy: Yes GME ATTESTATION GME ATTESTATION My faculty preceptor for this patient encounter was physically present during the encounter and was fully available. All aspects of the patient interview, examination, medical decision making process, and medical care plan development were reviewed and approved by the faculty preceptor. The faculty preceptor is aware and concurs with the plan as stated in the body of this note and will attest to such by his/her cosignature. Cheko Castellanos DO Apr 22, 2021 13:18
[2021-04-22] MEDS: COMBIGAN OPTH OU SCH (21:00)
[2021-04-22] MEDS: ENOXAPARIN 80MG/0.8ML SYRINGE (J1650 PER 10MG) SC SCH (21:05)
[2021-04-22] MEDS: GABAPENTIN 300 MG CAP PO SCH (21:06)
[2021-04-22 21:51] LABS: BLOOD UREA NITROGEN 21 MG/DL (7-18); CARBON DIOXIDE LEVEL 26 MEQ/L (21-32); CHLORIDE LEVEL 90 MEQ/L (98-107); CREATININE FOR GFR 0.71 MG/DL (0.55-1.30); GLOMERULAR FILTRATION RATE > 60.0 (>39); GLUCOSE, FASTING 166 MG/DL (70-100); SODIUM LEVEL 123 MEQ/L (136-145)
[2021-04-23] VITALS (23 sets, daily range): BP systolic 100–152; BP diastolic 58–88
[2021-04-23] MEDS: ACETAMINOPHEN TAB 650MG DOSE (2X325MG) PO PRN (00:28)
[2021-04-23] MEDS ORDERED: LIDOCAINE 5% (LIDODERM) PATCH TD ONE (01:00)
[2021-04-23] MEDS: AMIODARONE HCL 360 MG in IV 1 EA IV SCH ×2 (01:06→13:14)
[2021-04-23 04:31] LABS: HEMATOCRIT 34.9 % (36.0-47.0); HEMOGLOBIN 11.6 g/dl (12.0-15.5); MEAN CORPUSCULAR HEMOGLOBIN 29.8 pg (27.0-33.0); MEAN CORPUSCULAR HGB CONC 33.2 g/dl (32.0-36.5); MEAN CORPUSCULAR VOLUME 89.7 fl (80.0-96.0); PLATELET COUNT, AUTOMATED 421 10^3/uL (150-450); RED BLOOD COUNT 3.89 10^6/uL (4.00-5.40); WHITE BLOOD COUNT 9.4 10^3/uL (4.0-10.0)
[2021-04-23 04:57] LABS: BLOOD UREA NITROGEN 20 MG/DL (7-18); CALCIUM LEVEL 7.9 MG/DL (8.8-10.2); CARBON DIOXIDE LEVEL 24 MEQ/L (21-32); CHLORIDE LEVEL 92 MEQ/L (98-107); CREATININE FOR GFR 0.82 MG/DL (0.55-1.30); GLOMERULAR FILTRATION RATE > 60.0 (>39); GLUCOSE, FASTING 200 MG/DL (70-100); POTASSIUM SERUM 4.4 MEQ/L (3.5-5.1); SODIUM LEVEL 124 MEQ/L (136-145)
[2021-04-23] MEDS: METOPROLOL TART 25 MG TABLET PO SCH ×3 (06:18→21:57)
[2021-04-23] MEDS: LEVOTHYROXINE 50MCG TABLET (0.05MG) PO SCH (06:18)
[2021-04-23] MEDS: ENOXAPARIN 80MG/0.8ML SYRINGE (J1650 PER 10MG) SC SCH ×2 (08:20→21:03)
[2021-04-23] MEDS: predniSONE 20 MG TAB PO SCH (08:21)
[2021-04-23] MEDS: COLCHICINE 0.6 MG TABLET PO SCH (08:21)
[2021-04-23] MEDS: HumaLOG INSULIN (NovoLOG) PER UNIT SC SCH ×4 (08:21→21:00)
[2021-04-23] MEDS: ATORVASTATIN 10 MG TAB PO SCH (08:21)
[2021-04-23] MEDS: COMBIGAN OPTH OU SCH ×2 (09:00→21:07)
[2021-04-23] MEDS ORDERED: COLCHICINE 0.6 MG TABLET PO SCH (09:00)
--- NOTE | 2021-04-23 09:25 | ECHO ---
ECHOCARDIOGRAM DATE OF PROCEDURE: 04/22/2021 Age: 80 Gender: Female Height: 165 cm Weight: 83 kg REFERRING PHYSICIAN: Geovani Garcia M.D. and Darlene Ledezma M.D. INDICATION: Atrial flutter. MEASUREMENTS: IVS 1.5 cm LV 3.4 cm LVPW 1.6 cm LA 3.2 cm Aorta 4.0 cm Ascending aorta 3.7 cm RV 2.1 cm FINDINGS: This study is of fair technical quality with challenging visualization. There is underlying atrial flutter with ventricular response between 120 and 150 beats per minute and wide QRS complex. Left ventricle has normal size. Moderate left ventricular hypertrophy is noted. Based on limited views, I assume mild left ventricular systolic dysfunction with EF around 40% to 45%, but due to underlying tachycardia this is very tentative. Right ventricle does not appear grossly enlarged. Both atria are at least mildly enlarged. The aortic valve is tricuspid. It is mildly sclerotic and mobility is preserved. There are also mild degenerative abnormalities of the mitral valve with mitral annular calcifications. Mobility of leaflet is preserved. Tricuspid and pulmonic valves are poorly seen, but grossly appear normal. There is approximately moderate circumferential pericardial effusion without any signs of cardiac compression. Inferior vena cava is borderline dilated, but partially collapses with inspiration indicative of at least mildly elevated central venous pressure. Aortic root is dilated at 4.0 cm. Ascending aorta is in the upper limits of normal size measuring 3.7 cm. Doppler interrogation reveals no aortic stenosis and mild insufficiency. There is trace tricuspid and trace mitral insufficiency. Calculated pulmonary artery pressure is around 40 mmHg corresponding to [id number] pulmonary hypertension. Evaluation of diastolic function is inconclusive due to underlying atrial flutter. CONCLUSIONS: 1. Study is of fair technical quality, underlying flutter with variable ventricular rate. 2. Normal LV size with moderate LVH, at least mild left ventricular systolic dysfunction, and no segmental wall motion abnormalities. 3. Aortic sclerosis with no stenosis and mild insufficiency. 4. Trace mitral and tricuspid insufficiency. 5. At least mildly elevated central venous pressure and [id number] pulmonary hypertension. 6. Moderate pericardial effusion without signs of cardiac compression. 7. Dilated aortic root (4.0 cm).
--- NOTE | 2021-04-23 09:44 | IPN ---
PROGRESS NOTE DATE: 04/23/2021 SUBJECTIVE: Mrs. Ray tells me she feels slightly better today. She was able to get out of bed, but she got easily short of breath with fairly minimal activity. Denies any chest discomfort. She remains in atrial flutter with a rate that is not well-controlled decreased from yesterday's 150 to approximately 130 to 135. Still atrial flutter with predominantly 2:1 conduction. OBJECTIVE: VITAL SIGNS: Blood pressure 129/67, average systolic was about 110, heart rate as above. She is afebrile. Saturation 96% on 0.5 liter of oxygen. Fluid balance yesterday was about a liter positive and weight is recorded 86.4 kg. GENERAL: She is alert, oriented, and appropriate. Her JVP is about 2 cm above the clavicle and 45 degrees. LUNGS: Clear. I do not appreciate any wheezing, crackles, or rhonchi. HEART: Irregular, tachycardia. No gallop, rub, or murmur is appreciated. ABDOMEN: Obese, but soft. EXTREMITIES: There is still about 1+ edema. Peripheral pulses are palpable. NEUROLOGIC: She is intact. LABORATORY DATA: Basic metabolic panel reveals sodium 124, potassium 4.4, BUN 20, creatinine 0.9, and glucose 200. Calcium 7.9. CRP was elevated at 12.5. Sedimentation rate was 59. CBC today WBC count 9.4, hemoglobin 11.3, hematocrit 34, platelets 121,000. Rheumatoid factor was negative. MERCEDES screen is pending. ASSESSMENT AND PLAN: Mrs. Ray is a 80-year-old female who has a history of hypertensive heart disease who presented with dyspnea and was found to have approximately moderate pericardial effusion. She was also in atrial flutter with rapid ventricular response of recent onset. She was seen four days prior to admission by her primary care physician and was in normal rhythm. At this point, she is anticoagulated with Lovenox because I am still uncertain whether she will need pericardiocentesis or pericardial window. As far as the atrial flutter is concerned, her blood pressure was very soft yesterday and she dropped blood pressure significantly after IV metoprolol and consequently has been only on low dose oral metoprolol plus amiodarone IV. So far, we have not accomplished much progress in rate control. We will continue amiodarone in oral form after the current iv dose is completed. I will try to increase the dose of metoprolol depending on her blood pressure during the day. As far as the pericardial effusion is concerned, she has a very high sedimentation rate and CRP, so I have to assume that it is most likely inflammatory in nature. I plan to get a CT scan of the chest with IV contrast, but I will wait one more day because she was on Glucophage as an outpatient and her heart rate is still quite fast. She was started on cholchicine and prednisone yesterday and will continue the same. Not only she has psoriatic arthritis, which can cause pericardial effusion, but she was also started on infliximab, which certainly has been associated with pericardial effusion as well. I will continue following the patient with your. MOISESD
[2021-04-23] MEDS ORDERED: **NOTE PATIENT COMMENT** MISC XX ONE (13:00)
--- NOTE | 2021-04-23 13:06 | ECGEPIP ---
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
[2021-04-23] MEDS: PANTOPRAZOLE 40MG TAB (PROTONIX) PO SCH (13:14)
--- NOTE | 2021-04-23 18:00 | IPNPDOC ---
Subjective Date Seen The patient was seen on 04/23/21. Subjective Chief Complaint/HPI Mrs. Ray is a 80 year old female with psoriatic arthritis, DM2, and hypertension who presents with dyspnea and chest discomfort. She was seen e ml in the morning. She was feeling lightheaded, because she was just got out of bed to sit in the chair. Denies chest pain or palpitations despite her tachycardia. Objective Physical Examination General Exam: Positive: Alert, Cooperative Eye Exam: Negative: Sclera icteric ENT Exam: Positive: Atraumatic Neck Exam: Positive: Supple Chest Exam: Positive: Clear to auscultation Heart Exam: Positive: Tachycardic, Regular Rhythm Abdomen Exam: Positive: Normal bowel sounds, Soft; Negative: Tenderness Extremity Exam: Negative: Edema Psych Exam: Positive: Mental status NL, Mood NL Assessment /Plan Assessment Mrs. Ray is a 80 year old female with psoriatic arthritis, DM2, and hypertension who presents with dyspnea and chest discomfort. Dr. Miller had looked at the echocardiogram and found her to have a pericardial effusion. Her heart rate would have to be controlled first prior to considering pericardiocentesis or pericardial window. Otherwise, unclear etiology to her pericardial effusion. Patient recently started Remicade in the beginning of December. It has a rare complication of pericardial effusion. Admitting team spoke with Periodicals Clerk, Dr. Sierra Moreno, who recommended prednisone and colchicine. Plan/VTE VTE Prophylaxis Ordered?: Yes Plan 1. Atrial flutter with rapid ventricular rate Cardiology, Dr. Miller, consulted. Recommendations appreciated Continue amiodarone and Lopressor Anticoagulated with Lovenox as patient may need surgery for pericardial effusion 2. Pericardial effusion Unclear etiology. Possibly Remicade versus neoplastic versus autoimmune Admitting team spoke with rheumatology, Dr. Sierra Moreno, who recommended prednisone and colchicine Once rate controls achieved, consider reevaluating for surgery CT chest with contrast tomorrow 3. Hypotonic hyponatremia Serum osmolality 258 -Patient has history of diastolic CHF -Sodium slowly trending upwards. Continue to trend sodium 4. Hypertension -Lisinopril held to allow for more Lopressor 5. History of neuropathy -Continue gabapentin 6. Diabetes mellitus -Continue sliding scale insulin 7. Hypothyroidism -Continue levothyroxine 8. DVT ppx -Full dose Lovenox Disposition: Pending rate control and pericardial effusion improvement VS, I&O, 24H, Fishbone Vital Signs/I&O Vital Signs Date Time Temp Pulse Resp B/P (MAP) Pulse Ox O2 Delivery O2 Flow Rate FiO2 04/23/21 15:15 139 122/64 04/23/21 12:00 97.0 19 95 Room Air 04/23/21 08:00 0.5 I&O- Last 24 Hours up to 6 AM 04/23/21 06:00 Intake Total 1510 ml Output Total 1870 ml Balance -360 ml Laboratory Data 24H LABS Laboratory Tests 2 04/22/21 21:01: Bedside Glucose (Misc Panel) 159H 04/22/21 21:12: Anion Gap 7L, Glomerular Filtration Rate > 60.0, Calcium Level 8.0L 04/23/21 04:19: Anion Gap 8, Glomerular Filtration Rate > 60.0, Calcium Level 7.9L, Nucleated Red Blood Cells % (auto) 0.0 04/23/21 07:15: Bedside Glucose (Misc Panel) 192H 04/23/21 11:57: Bedside Glucose (Misc Panel) 192H CBC/BMP Laboratory Tests 04/22/21 21:12 04/23/21 04:19 Microbiology Microbiology 04/22/21 Respiratory Virus Panel (PCR) ([facility]) - Final, Complete REBEKAH MALONEY DO Apr 23, 2021 18:00
[2021-04-23] MEDS: GABAPENTIN 300 MG CAP PO SCH (21:00)
[2021-04-23] MEDS: AMIODARONE 200 MG TAB (PACERONE) PO SCH (21:02)
[2021-04-23] MEDS: TAFLUPROST OS SCH (21:07)
[2021-04-24] VITALS (15 sets, daily range): BP systolic 102–170; BP diastolic 57–109
[2021-04-24 04:57] LABS: BASO % 0.2 % (0.0-1.0); HEMATOCRIT 37.7 % (36.0-47.0); HEMOGLOBIN 12.6 g/dl (12.0-15.5); LYMPH # 2.4 10^3/uL (1.5-5.0); LYMPH % 17.6 % (24.0-44.0); MEAN CORPUSCULAR HEMOGLOBIN 30.3 pg (27.0-33.0); MEAN CORPUSCULAR HGB CONC 33.4 g/dl (32.0-36.5); MEAN CORPUSCULAR VOLUME 90.6 fl (80.0-96.0); MONO # 1.8 10^3/uL (0.0-0.8); MONO % 13.2 % (2.0-8.0); NEUTROPHILS # 9.1 10^3/uL (1.5-8.5); NEUTROPHILS % 67.5 % (36.0-66.0); PLATELET COUNT, AUTOMATED 527 10^3/uL (150-450); RED BLOOD COUNT 4.16 10^6/uL (4.00-5.40)
[2021-04-24 04:59] LABS: WHITE BLOOD COUNT 13.4 10^3/uL (4.0-10.0)
[2021-04-24 05:26] LABS: BLOOD UREA NITROGEN 19 MG/DL (7-18); CALCIUM LEVEL 7.9 MG/DL (8.8-10.2); CARBON DIOXIDE LEVEL 27 MEQ/L (21-32); CHLORIDE LEVEL 98 MEQ/L (98-107); CREATININE FOR GFR 0.78 MG/DL (0.55-1.30); GLOMERULAR FILTRATION RATE > 60.0 (>39); GLUCOSE, FASTING 114 MG/DL (70-100); POTASSIUM SERUM 4.5 MEQ/L (3.5-5.1); SODIUM LEVEL 131 MEQ/L (136-145)
[2021-04-24] MEDS ORDERED: ISOVUE-370 76% 100ML VIAL As Ordered ONE (05:59)
[2021-04-24] MEDS: LEVOTHYROXINE 50MCG TABLET (0.05MG) PO SCH (06:04)
[2021-04-24] MEDS: METOPROLOL TART 25 MG TABLET PO SCH ×3 (06:05→21:13)
--- NOTE | 2021-04-24 07:17 | REPVR ---
PROCEDURE INFORMATION: Exam: CT Chest With Contrast; Diagnostic Exam date and time: 04/24/2021 6:22 AM Age: 80 years old Clinical indication: Other: Pericardial effusion, dyspnea TECHNIQUE: Imaging protocol: Diagnostic computed tomography of the chest with contrast. 3D rendering (Not supervised by radiologist): MIP and/or 3D reconstructed images were created by the technologist. Radiation optimization: All CT scans at this facility use at least one of these dose optimization techniques: automated exposure control; mA and/or kV adjustment per patient size (includes targeted exams where dose is matched to clinical indication); or iterative reconstruction. Contrast material: ISOVUE 370; Contrast volume: 75 ml; Contrast route: INTRAVENOUS (IV); COMPARISON: CR PORTABLE CHEST X-RAY 04/22/2021 8:48 AM FINDINGS: Lungs: Atelectatic changes also seen in the left lung base and lingula/inferior left upper lobe. Small tiny opacities likely with tree-in-bud distribution seen in the right upper lobe. 5-6 mm nodule seen on axial image 46. Pleural spaces: There is a small bilateral pleural effusions with overlying atelectatic changes versus infiltrates. Heart: There is moderate pericardial effusion measuring up to 1.5 cm in thickness. Pulmonary arteries: The pulmonary trunk is dilated at 3.7 centimetres. Aorta: Unremarkable. No aortic aneurysm. Great vessels off aortic arch: Partially calcified atherosclerotic plaque seen at the proximal left subclavian artery resulting in 50-75% stenosis. Other arteries: There is moderate calcification at the origin of the right brachiocephalic trunk and left common carotid artery resulting in less than 50% stenosis. Lymph nodes: There are shotty, small not enlarged by CT size criteria mediastinal lymph nodes. There is a prominent right hilar lymph node on axial image 46 series 202 measuring 1.8 x 1.5 centimetres. Bones/joints: Unremarkable. No acute fracture. Soft tissues: Unremarkable. IMPRESSION: 1. Moderate pericardial effusion measuring to 1.5 cm in thickness. Correlation with echocardiography is suggested to exclude tamponade physiology. 2. No CT evidence of pulmonary embolism or right heart strain. 3. Small bilateral layering pleural effusions with overlying atelectasis vs infiltrates. More prominent atelectatic changes vs infiltrates seen in the inferior left upper lobe/lingula and left lung base. 4. Tiny opacities apparently clustered in tree-in-bud distribution in the right upper lobe suggestive of endobronchial infection/inflammation. 5. 5-6 mm right upper lobe lung nodule. - For patients at low risk (minimal or absent history of smoking and of other known risk factors), no routine follow-up is indicated. - For patients at high risk (history of smoking or of other known risk factors), consider optional CT Chest at 12 months. (Reference: Rl) 6. Dilated pulmonary trunk at 3.7 cm suggestive of pulmonary hypertension. 7. Partially calcified plaque at the proximal left subclavian artery resulting in 50-75% stenosis. 8. Shotty likely reactive subcentimeter mediastinal lymph nodes seen in addition to a prominent right hilar lymph node at 1.8 x 1.5 cm. Follow-up is suggested. REFERENCES: Rl Ortega, et al. Guidelines for Management of Incidental Pulmonary Nodules Detected on CT Images: From the Fleischner Society 2017. Radiology. 2017;284(1):228-243. Electronically signed by: Luis Ivan On 04/24/2021 07:16:24 AM
[2021-04-24] MEDS: HumaLOG INSULIN (NovoLOG) PER UNIT SC SCH ×4 (07:30→20:11)
[2021-04-24] MEDS: ENOXAPARIN 80MG/0.8ML SYRINGE (J1650 PER 10MG) SC SCH ×2 (09:22→20:10)
[2021-04-24] MEDS: PANTOPRAZOLE 40MG TAB (PROTONIX) PO SCH (09:22)
[2021-04-24] MEDS: ATORVASTATIN 10 MG TAB PO SCH (09:22)
[2021-04-24] MEDS: AMIODARONE 200 MG TAB (PACERONE) PO SCH ×2 (09:23→20:10)
[2021-04-24] MEDS: COLCHICINE 0.6 MG TABLET PO SCH (09:23)
[2021-04-24] MEDS: predniSONE 20 MG TAB PO SCH (09:23)
[2021-04-24] MEDS: COMBIGAN OPTH OU SCH (09:24)
[2021-04-24] MEDS ORDERED: METOPROLOL TART 25 MG TABLET PO ONE (10:05)
--- NOTE | 2021-04-24 10:19 | IPN ---
PROGRESS NOTE DATE: 04/24/2021 SUBJECTIVE: Mrs. Ray is feeling about the same. She is relatively comfortable at rest but gets short of breath with minimal activity. She denies any chest discomfort. Her heart rate has slowed down since yesterday. She is currently mostly in the 80s with rate controlled atrial flutter and she is afebrile. Saturation is 92-93% on room air. Fluid balance yesterday was recorded as negative 800. She had a very good urine output. Weight is recorded as 86 kilograms. She had a CT scan of the chest this morning that revealed at least moderate sized pericardial effusion and also bilateral pleural effusions and minimal atelectasis. No obvious finding to suggest malignancy. There were also findings of carotid artery stenosis that is known. PHYSICAL EXAMINATION: GENERAL: Mrs. Ray appears a little more comfortable than yesterday. VITAL SIGNS: Blood pressure 121/59, heart rate in the 80s and 90s, irregular. She is afebrile, saturation 92 on room air. LUNGS: Reasonably clear to auscultation. I do not appreciate any crackles or wheezing. Somewhat diminished breath sounds over bases. HEART: Reveals irregular rhythm without obvious gallop, rub or murmur. Somewhat muffled heart sounds. ABDOMEN: Obese but soft and nontender, no hepatosplenomegaly, no guarding. EXTREMITIES: Trace edema. NEUROLOGIC: She is intact. LABORATORY DATA: Basic metabolic panel: Sodium 131, potassium 4.5, BUN 19, creatinine 0.9, glucose 114. CBC: WBC count 13.4, hemoglobin 12.6, hematocrit 38 and platelet count 527,000. ASSESSMENT AND PLAN: Mrs. Ray is a 80-year-old female with hypertensive heart disease, known left carotid artery stenosis, mildly dilated aortic root and mild aortic insufficiency who presented with a few days of chest discomfort that were followed by dyspnea. She was found to be in atrial flutter with RVR and also was found to have at least moderate sized pericardial effusion. It is most likely related to either Remicade or her psoriatic arthritis. Both conditions have been shown to be a potential cause of pericardial effusion even though it will be rare complications of either disease. So far, she has been on low dose colchicine and prednisone for two days without any appreciable improvement in size of the effusion and even though there are no signs of cardiac compression, I do believe that it would be reasonable to consider either pericardiocentesis or I think preferably window. Dr. Ratliff will contact Dr. Duncan in this regard. I suspect that we can also wait. I do not see any immediate emergency in that matter. The second issue is atrial flutter. He has much better rate control. At this point, I would continue amiodarone and anticoagulation. The onset is unclear but she was seen only four days prior to admission by a primary care physician and was in sinus rhythm so I have to assume that the onset is very recent. I do believe that once the inflammation is under control, she should be able to resume sinus mechanism. At this point, we will not start oral anticoagulation as yet because of uncertainty of need for surgical intervention.
[2021-04-24] MEDS: MIRALAX *UNIT DOSE* 17GM PACKET PO PRN (10:26)
[2021-04-24] MEDS ORDERED: LEVALBUTEROL HFA 45MCG/ACT 15 GM INHALER INH PRN (10:55)
--- NOTE | 2021-04-24 12:04 | CR ---
CONSULTATION DATE: 04/24/2021 REASON FOR CONSULTATION: The patient is seen at the request of the hospitalist service and Dr. Miller of cardiology for a pericardial effusion. HISTORY OF PRESENT ILLNESS: The patient is a 80-year-old white female who has psoriatic arthritis being treated with Remicade whose story actually starts about three to four months ago when she would notice palpitations accompanied by shortness of breath. These were quite limited and transitory. However, in the last week, she has become more short of breath, which has also been accompanied by a sharp to dull aching chest pain in the left upper hemithorax towards the midline. The shortness of breath has gotten so bad in the 24 hours prior to admission that she had to sleep in a recliner. She denies that her legs have been swollen. She has had no fevers, chills, or sweats. There has been no weight loss. She denies cough or sputum production and there is no dysphagia or choking with eating. Echocardiogram was undertaken, which showed a moderate pericardial effusion without compression. CT scan again done today showed [id number] pericardial effusion. PAST MEDICAL HISTORY: 1. Newly diagnosed diabetes. 2. Hypertension. 3. Diverticulosis. 4. Psoriatic arthritis on Remicade since December. 5. Glaucoma. 6. Possible cerebrovascular accident (CVA) manifested by bilateral weakness in her legs. PAST SURGICAL HISTORY: 1. Hysterectomy. 2. Loop recorder. 3. Bilateral cataract surgery. HABITS: Stopped smoking 50 years ago. She is not sure exactly how much she did smoke until then. Denies alcohol or illicit drugs. 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 EXPOSURES: She has two cats. No birds or dogs. TRAVEL HISTORY: [place] has been to both the [facility] [place], [place], as well as [place]. HOME MEDICATIONS: 1. Amlodipine 10 mg q. day. 2. Aspirin 81 mg q. day. 3. Atorvastatin 10 mg q. day. 4. Combigan eye drops one drop both eyes b.i.d. 5. Synthroid 50 mcg q. day. 6. Lisinopril 20 mg q. day. 7. Metformin 500 mg q. day. REVIEW OF SYSTEMS: Constitutional: See HPI. Without fevers, chills, sweats, or night sweats. Eyes: Without diplopia. Without prior jaundice. Without transient monocular blindness. Nose: Without epistaxis. Mouth: Has false teeth. Cardiac: See HPI. No prior history of myocardial infarction or intermittent claudication. Pulmonary: See HPI. GI: Without nausea or vomiting, but does have constipation, but no diarrhea. There is no melena or hematochezia. There is no hematemesis or abdominal pain. Endocrine: Has diabetes and hypothyroidism. Psychiatric: Without pathological anxieties, depressions, or psychoses. Neurologic: Possible CVA, which has been imagined on MRI and perhaps manifested by sudden weakness in both legs from which she has recovered. Without prior seizures. : Without hematuria, dysuria, or history of renal stones. PHYSICAL EXAM: EYES: Show her pupils equal and reactive. Extraocular muscles are intact. Sclerae nonicteric. NOSE: Without deformity. MOUTH: Shows the mucous membranes to be pink and moist. Lips and commisures are without lesions and no thrush. NECK: Supple. There is no jugular venous distention. No subcutaneous emphysema. Trachea is midline. RESPIRATORY: Her lungs show equal breath sounds on either side. There are some inspiratory crackles during late inspiration particularly at the left side at the base. Percussion note is dull at the right base and left is full to the diaphragm. CARDIAC: Does not show a pericardial friction rub. S1 and S2 are normal. Heart sounds are well heard. ABDOMEN: Soft nontender with hypoactive bowel sounds. There is no CVA tenderness and no hepatomegaly. EXTREMITIES: Show no pretibial edema. No calf tenderness. No differential swelling of the upper extremities. SKIN: Warm, dry, and perfused without cyanosis or mottling, including that of the nail beds and knees. NEUROLOGIC: Shows II through XII intact. Normal gross motor, gross sensation intact. Gait is not tested. PSYCHIATRIC: Shows her to be awake, alert, and oriented x3 with appropriate mood and affect and conversational DIAGNOSTIC STUDIES: Her echocardiogram done on 04/22/2021, shows a moderate pericardial effusion without cardiac compression with what is determined to be [id number] pulmonary hypertension with mild mitral and tricuspid insufficiency with mild left ventricular dysfunction with moderate left ventricular hypertrophy and with ejection fraction that was estimated between 40% to 45%. Her CT scan done this morning confirms a small to moderate concentric pericardial effusion. I see no emphysematous changes. She has bilateral small pleural effusions. INVESTIGATIONS: Her white count today is 13.4 with a hemoglobin and hematocrit of 12.6 and 37.7 and a platelet count of 527,000. Differential shows 63% neutrophils, 17% lymphocytes, and 13% monocytes. There are no immature forms and no toxic granulations. Her chemistries today show a sodium of 131 with the remainder of her electrolytes normal with a BUN and creatinine of 19 and 0.78 with a glucose of 114 and a calcium of 7.9. Rheumatoid factor is less than 10 and her MERCEDES screen is pending. IMPRESSION: 1. Pericardial effusion without compression or tamponade. 2. Psoriatic arthritis on Remicade. 3. Hypertension. 4. Diabetes. 5. Hypothyroidism. 6. Moderate ventricular dysfunction with ejection fraction of 40%. 7. Prior cerebrovascular accident (CVA). PLAN AND DISCUSSION: Ms. Ray has a moderate to small pericardial effusion, but there is no sign of compression or tamponade. The usual culprits for pericardial effusions range from an infectious etiology either bacterial or viral of which she has no symptomatology or prodrome of an upper respiratory tract infection. It could also be inflammatory or autoimmune as she certainly has a setup for autoimmune disease from her psoriatic arthritis and her dosing of Remicade. There is no evidence that this is a mechanical aortic disruption. Her TSH is 1.25 and normal, so I do not think this represents hypothyroidism and there is no indication of renal failure. She has mild pulmonary hypertension, but no overt right heart failure. There is no convincing history of malignancy, although certainly that could be a side effect of the Remicade. At this point in time, I see no holloway to take her to the operating room to do a pericardial window. She is being treated for a pericarditis and in addition to that, she has no particular affinity towards continuing her Remicade and I would suggest we discontinue that. We should follow an echo in about three days, as her last echo was done two days ago. If she remains asymptomatic and her shortness of breath abates, I again would not be excited about taking her to the operating room. Already her shortness of breath has vastly improved over her admission condition and we should stay the course. SWETHA
--- NOTE | 2021-04-24 19:38 | IPNPDOC ---
Date Seen The patient was seen on 04/24/21. Progress Note SUBJECTIVE: This is hospital day 3 for this patient. Patient was tearful during the medical interview. She states that she was not able to sleep overnight due to the steroids. She denies nausea at this time. She states that her appetite has improved since admission. She also denies any vomiting or diarrhea at this time. She states that her constipation is well-controlled on the current bowel regimen. She denies any headache, rhinorrhea, chest pain, chest discomfort, heart palpitations at this time. Patient denies any abdominal pain. Patient has no acute concerns at this time. Nursing staff reports that her heart rate has fluctuated between 90 and 140s. Nursing staff reports that Dr. Miller is aware of this at this time. Nursing staff also reported that PT is needed at this time because she is unable to achieve daily activities at this time. Activities of daily living, baseline is unknown for this patient at this time. Since. Also reports that the patient has been having some difficulty with swallowing and chokes during meals. OBJECTIVE PHYSICAL EXAMINATION: VITAL SIGNS: Please see below. GENERAL: Patient is a well-appearing patient in no acute distress. HEENT: Normocephalic, atraumatic, no scleral icterus, oral mucosa moist CARDIOVASCULAR: Regularly irregular rhythm, tachycardic, no murmurs, rubs or gallops appreciated, during the medical interview, pt's HR fluctuated between 90s-140s. RESPIRATORY: Diffuse end expiratory wheezes. ABDOMINAL: Soft, nondistended, nontender, bowel sounds present EXTREMITIES:. Bilateral pedal edema still present. No cyanosis or clubbing ap preciated of the hands or feet. NEUROLOGICAL: Good tone, patient was sitting upright in bed PSYCHOLOGICAL:. Patient is tearful occasionally when talking about insomnia pattern with steroids LABORATORY DATA, IMAGING STUDIES, MICROBIOLOGY: Please see below. Echocardiogram: 04/22/2021 1. Study is of fair technical quality, underlying flutter with variable ventricular rate. 2. Normal LV size with moderate LVH, at least mild left ventricular systolic dysfunction, and no segmental wall motion abnormalities. 3. Aortic sclerosis with no stenosis and mild insufficiency. 4. Trace mitral and tricuspid insufficiency. 5. At least mildly elevated central venous pressure and [id number] pulmonary hypertension. 6. Moderate pericardial effusion without signs of cardiac compression. 7. Dilated aortic root (4.0 cm). Chest CT with szrwegul23/07/[address] resulted today showing: Moderate pericardial effusion measuring 1.5 cm in thickness. No evidence of pulmonary embolism. Small bilateral layering pleural effusions with overlying atelectasis versus infiltrates. Tiny opacities, apparently clustered in tree-in-bud distribution in the right upper lobe suggestive of endobronchial infection/inflammation. 5-6 mm right upper lung lobe nodule present. Dilated pulmonary trunk at 3.7 cm suggestive of pulmonary hypertension. Partially calcified plaque at the proximal left subclavian artery, resulting in 50-75% stenosis. Shotty likely reactive subcentimeter mediastinal lymph nodes seen in addition to a prominent right hilar lymph node at 1.8, X1.5 centimeter. ASSESSMENT AND PLAN: This is a 80-year-old female with a past medical history significant for psoriatic arthritis being treated with Remicade infusions that started in December 2020. She presents for hospitalization due to progressive dyspnea, pericardial effusions, pleural effusions, and bilateral pedal edema. #Atrial flutter with rapid ventricular rate secondary to pericardial effusion vs heart failure exacerbation Patient presented with heart rate in the 150s and continued to have atrial flutter with rapid ventricular rate, despite Lopressor and amiodarone infusion in the ED. Dr. Miller was consulted, inpatient service team appreciates cardiology consult. Per Dr. Miller's recommendations: -Complete additional amiodarone infusion at slow rate of 100 mg, continue additional infusions ordered to bring down rate. -Continue Lopressor PO. -Continue SC Lovenox BID. (not considering oral at this time due to possibility of patient needing pericardiocentesis or pericardial window). -This is likely secondary to pericardial effusion (etiology of pericardial effusion, not yet known, possibly secondary to Remicade treatment, which patient started for psoriatic arthritis in December 2020.) -Not considering cardioversion at this time due to possible recurrence of atrial flutter, given existence of pericardial effusion. Amiodarone 400 mg twice a day by mouth #Pericardial effusion. Etiology unknown at this time, considerations include history of psoriatic arthritis, Remicade administration, or neoplastic etiology. Patient has a history of psoriatic arthritis. Patient received Remicade beginning in December, which has a rare complication of pericardial effusions. The case was discussed over the phone with Manager Valuation, Dr. Sierra Moreno, who recommended prednisone and colchicine administration at this time. Colchicine administration will be 0.3 mg daily (decreased dose) since the patient is also receiving amiodarone (amiodarone predisposes patient to colchicine toxicity.) May consider pericardiocentesis or pericardial window if steroids and colchicine does not work to decrease pericardial effusion volume. Despite patient's adverse neuropsychiatric affect is secondary to steroid administration, patient steroid administration cannot be lowered at this time because colchicine dosage cannot be increased because patient is also on amiodarone. Cardiothoracic surgery, Dr. Duncan has been consulted on the case. Medical team appreciates Dr. Duncan's input. #Hyponatremia. Dr. Miller suspects SIADH secretion in the setting of resulting in hyponatremia. Patient has a history of heart failure, therefore normal saline was not started since sodium level was 121 and threshold in heart failure is treatment begins. If sodium level is less than 120, consider gentle hydration (gentle because patient has pericardial effusion and heart failure). Patient's sodium level is 131 today without much normal saline administration. Paraneoplastic etiology cannot be ruled out at this time. #Abnormal chest CT results Follow-up suggested for shotty likely reactive mediastinal lymph nodes prominent in the right hilar area. Outpatient follow-up CT chest recommended in 12 months due to finding of 5-6 mm nodule upper lung lobe. #Hypertensive heart failure Aspirin on hold in case of need for pericardial window or pericardiocentesis procedure #Hypertension Lisinopril, Home medication continued with holding parameters of SBP <120 #[id number] diabetes mellitus type 2. Continue sliding scale insulin. Hold home medication of metformin at this time. Hypoglycemic protocol in place. 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 Continue home medication Gabapentin #History of dizziness. Continue home medication, Meclizine 12.5 mg DVT prophylaxis: Patient is receiving Lovenox 80 mg twice a day subcutaneous. DISPOSITION: Discharge is not likely within the next few days as pleural effusion and pericardial effusions have not resolved and patient is still in atrial fibrillation with RVR. VS, I&O, 24H, Fishbone Vital Signs/I&O Vital Signs Date Time Temp Pulse Resp B/P (MAP) Pulse Ox O2 Delivery O2 Flow Rate FiO2 04/24/21 16:00 1.0 04/24/21 16:00 98.0 139 19 102/74 (83) 95 Nasal Cannula I&O- Last 24 Hours up to 6 AM 04/24/21 06:00 Intake Total 2580 ml Output Total 3165 ml Balance -585 ml Laboratory Data 24H LABS Laboratory Tests 2 04/23/21 20:57: Bedside Glucose (Misc Panel) 165H 04/24/21 02:44: Bedside Glucose (Misc Panel) 135H 04/24/21 04:39: Immature Granulocyte % (Auto) 1.5, Neutrophils (%) (Auto) 67.5H, Lymphocytes (%) (Auto) 17.6L, Monocytes (%) (Auto) 13.2H, Eosinophils (%) (Auto) 0.0, Basophils (%) (Auto) 0.2, Neutrophils # (Auto) 9.1H, Lymphocytes # (Auto) 2.4, Monocytes # (Auto) 1.8H, Eosinophils # (Auto) 0.0, Basophils # (Auto) 0.0, Nucleated Red Blood Cells % (auto) 0.0, Anion Gap 6L, Glomerular Filtration Rate > 60.0, Calcium Level 7.9L 04/24/21 12:40: Bedside Glucose (Misc Panel) 200H 04/24/21 17:33: Bedside Glucose (Misc Panel) 174H CBC/BMP Laboratory Tests 04/24/21 04:39 Microbiology Microbiology 04/22/21 Respiratory Virus Panel (PCR) ([facility]) - Final, Complete GME ATTESTATION GME ATTESTATION My faculty preceptor for this patient encounter was physically present during the encounter and was fully available. All aspects of the patient interview, examination, medical decision making process, and medical care plan development were reviewed and approved by the faculty preceptor. The faculty preceptor is aware and concurs with the plan as stated in the body of this note and will attest to such by his/her cosignature. ATTENDING NOTE Attending Attestation: Patient independently seen and examined. I have discussed in detail with the resident the findings and plan of treatment as documented by the resident. I agree with their findings and treatment plan. I will continue to follow the patient during this hospital stay. Case discussed with cardiology and cardiothoracic surgery. Cheko Castellanos DO Apr 24, 2021 18:51 STEPHEN BLANK MD Apr 25, 2021 06:48
[2021-04-24] MEDS: GABAPENTIN 300 MG CAP PO SCH (20:11)
[2021-04-24] MEDS: COMBIGAN OS SCH (20:12)
[2021-04-24] MEDS: TAFLUPROST OS SCH (21:13)
[2021-04-25] VITALS (20 sets, daily range): BP systolic 95–146; BP diastolic 55–102
[2021-04-25] MEDS: ACETAMINOPHEN TAB 650MG DOSE (2X325MG) PO PRN (01:02)
[2021-04-25] MEDS ORDERED: diphenhydrAMINE 25MG CAP PO ONE (03:05)
[2021-04-25] MEDS: RAMELTEON 8 MG TAB (ROZEREM) PO PRN (03:15)
[2021-04-25] MEDS ORDERED: IPRATROPIUM 0.5MG/ALBUTEROL 2.5MG INH SOL UD 3ML (DUONEB) NEB PRN (03:40)
[2021-04-25 05:03] LABS: BASO % 0.2 % (0.0-1.0); EOS % 0.1 % (0.0-3.0); HEMATOCRIT 35.4 % (36.0-47.0); HEMOGLOBIN 11.5 g/dl (12.0-15.5); LYMPH # 2.7 10^3/uL (1.5-5.0); LYMPH % 19.8 % (24.0-44.0); MEAN CORPUSCULAR HEMOGLOBIN 29.3 pg (27.0-33.0); MEAN CORPUSCULAR HGB CONC 32.5 g/dl (32.0-36.5); MEAN CORPUSCULAR VOLUME 90.3 fl (80.0-96.0); MONO # 1.4 10^3/uL (0.0-0.8); MONO % 10.1 % (2.0-8.0); NEUTROPHILS # 9.5 10^3/uL (1.5-8.5); NEUTROPHILS % 68.7 % (36.0-66.0); PLATELET COUNT, AUTOMATED 496 10^3/uL (150-450); RED BLOOD COUNT 3.92 10^6/uL (4.00-5.40); WHITE BLOOD COUNT 13.8 10^3/uL (4.0-10.0)
[2021-04-25 05:24] LABS: BLOOD UREA NITROGEN 20 MG/DL (7-18); CALCIUM LEVEL 7.6 MG/DL (8.8-10.2); CARBON DIOXIDE LEVEL 28 MEQ/L (21-32); CHLORIDE LEVEL 93 MEQ/L (98-107); GLOMERULAR FILTRATION RATE > 60.0 (>39); GLUCOSE, FASTING 131 MG/DL (70-100); POTASSIUM SERUM 4.9 MEQ/L (3.5-5.1); SODIUM LEVEL 126 MEQ/L (136-145)
[2021-04-25] MEDS: LEVOTHYROXINE 50MCG TABLET (0.05MG) PO SCH (06:18)
[2021-04-25] MEDS: METOPROLOL TART 25 MG TABLET PO SCH ×3 (06:19→22:00)
[2021-04-25] MEDS: HumaLOG INSULIN (NovoLOG) PER UNIT SC SCH ×4 (07:30→21:00)
[2021-04-25] MEDS ORDERED: DIGOXIN INJ 0.5 MG/2 ML AMP (J1160) As Ordered ONE (07:56)
[2021-04-25] MEDS ORDERED: DIGOXIN INJ 0.5 MG/2 ML AMP (J1160) IV STA ×2 (08:00→08:02)
[2021-04-25] MEDS ORDERED: BUPIVACAINE LIPOSOME/PF 1.3% 20ML VIAL (13.3MG/ML)(EXPAREL)(C9290 PER1MG) As Ordered ONE (08:41)
[2021-04-25] MEDS ORDERED: BUPIVACAINE HCL 0.5% 10ML VIAL As Ordered ONE ×2 (08:42→09:11)
--- NOTE | 2021-04-25 08:44 | IPN ---
PROGRESS NOTE DATE: 04/25/2021 SUBJECTIVE: Mrs. Ray had a relatively uneventful day yesterday but early this morning apparently around 5 o'clock or so she started experiencing worsening dyspnea. I was called by the ICU nurse and on my arrival the patient was diaphoretic and complaining of shortness of breath. She did not appear in any distress. OBJECTIVE: VITAL SIGNS: Blood pressure 109/70, heart rate was 140 to 150, atrial flutter with 2:1 conduction and bifascicular block, saturation 96% on 1 liter of oxygen. Weight was not recorded yet this morning. GENERAL: Patient is clearly diaphoretic. Her JVP now looks elevated but not much, I would estimate about 3 cm on clavicle. LUNGS: Clear with only occasional crackles in both bases. HEART: Very muffled heart sounds, a little more than yesterday. I do not appreciate any distinct gallop, rub or murmur. ABDOMEN: Obese but soft and nontender. EXTREMITIES: There is trace edema. NEUROLOGIC: She is intact. She is alert and oriented and her speech is not garbled. LABORATORY DATA: CBC revealed a WBC count of 13.8, hemoglobin 11.5, hematocrit 35.4, platelet count 496,000. Basic metabolic panel: Sodium 126, potassium 4.9, BUN 20, creatinine 0.7 and glucose 131,000. ASSESSMENT AND PLAN: Mrs. Ray is a 80-year-old female with hypertensive heart disease who presents with atrial flutter with RVR in the setting of newly diagnosed pericardial effusion that was felt to be moderate based on echocardiogram four days ago. Now, she seems to have decompensated as of the last few hours with worsening of her heart rate of her atrial flutter and also diaphoresis and shortness of breath. JVP now looks like it is elevated and blood pressure is a little lower. I am certainly concerned that there is a possibility of worsening pericardial effusion and a stat echocardiogram was ordered. I already spoke with the office technician and they are on the way. In the interim, I am going to give the patient a small dose of Digoxin trying to improve her heart rate, at least modestly. Further management will obviously depend principally on the results of the echocardiogram. If there is no evidence for pericardial tamponade, then will have to focus on better rate control. When I saw her yesterday, her heart rate was much better and this represents considerable deterioration.
--- NOTE | 2021-04-25 08:47 | IPN ---
PROGRESS NOTE DATE: 04/25/2021 TIME: 8:18 a.m. SUBJECTIVE: Since my last dictation, a 2-dimensional echocardiogram was obtained. It revealed approximately moderate size pericardial effusion but there were some early signs of cardiac compression, specifically there is a significant variation on both tricuspid and mitral in-flow velocities, there is also partial free right atrial wall collapse dependent on respiration. Additional findings, she now has significant LV systolic dysfunction. I estimate her EF around 20 to 25% and there are bilateral pleural effusions. Considering these findings, I administered 0.5 mg of IV Digoxin without appreciable change in her heart rate. Because her blood pressure remained stable, I think we will not have to do any emergency procedures, but I spoke with Dr. Duncan and explained to him the situation. Patient will be taken to the Operating Room this morning for pericardial window. We will see what effect this will have on her condition If her condition does not appreciably change, we may need to proceed with electric cardioversion to accomplish better rate and rhythm control in a setting of persistent difficult to control tachycardia. Because this represents deterioration in patient's condition, I spoke to her about this at length. She gave me verbal consent to proceed. I also contacted her son, Phuc, who is the health care proxy and I explained to him the situation and the plans we have.
[2021-04-25] MEDS: AMIODARONE 200 MG TAB (PACERONE) PO SCH ×2 (09:00→20:13)
[2021-04-25] MEDS: predniSONE 20 MG TAB PO SCH (09:00)
[2021-04-25] MEDS: ATORVASTATIN 10 MG TAB PO SCH (09:00)
[2021-04-25] MEDS: COLCHICINE 0.6 MG TABLET PO SCH (09:00)
[2021-04-25] MEDS: PANTOPRAZOLE 40MG TAB (PROTONIX) PO SCH (09:00)
[2021-04-25] MEDS: ENOXAPARIN 80MG/0.8ML SYRINGE (J1650 PER 10MG) SC SCH ×2 (09:00→20:14)
[2021-04-25] MEDS: COMBIGAN OS SCH ×2 (09:00→20:14)
[2021-04-25] MEDS ORDERED: ceFAZolin 2 GM/D5W 50 ML IV BAG (J0690 PER 500MG) As Ordered ONE (09:03)
[2021-04-25] MEDS ORDERED: MUPIROCIN 2% OINT 22 GM TUBE As Ordered ONE (09:04)
--- NOTE | 2021-04-25 09:19 | REP ---
INDICATION: wheezing, tachypnea. COMPARISON: 04/22/2021. TECHNIQUE: Single portable AP view of the chest was performed. FINDINGS: There is increased density in the left lower lobe compatible with atelectasis/infiltrate. Right lung is clear. There is cardiomegaly. There is calcification of the thoracic aorta. The mediastinal silhouette is unchanged. There is an old healed left clavicle fracture. IMPRESSION: Left lower lobe infiltrate/atelectasis. <Electronically signed by Garrick Skaggs > 04/25/21 0915
[2021-04-25] MEDS ORDERED: SUCCINYLCHOLINE 100 MG/5 ML SYRINGE (J0330) As Ordered ONE (09:49)
[2021-04-25] MEDS ORDERED: CALCIUM CHLORIDE 10% 1 GM/10 ML SYR As Ordered ONE (09:49)
[2021-04-25] MEDS ORDERED: LIDOCAINE 2% 100MG/5ML SDV (FOR ANES.) As Ordered ONE (09:49)
[2021-04-25] MEDS ORDERED: MIDAZOLAM INJ 2MG/2ML VIAL (J2250 PER 1MG) As Ordered ONE (09:49)
[2021-04-25] MEDS ORDERED: ONDANSETRON 4MG/2ML VIAL As Ordered ONE (09:49)
[2021-04-25] MEDS ORDERED: KETAMINE HCL 200 MG/20 ML VIAL As Ordered ONE (09:49)
[2021-04-25] MEDS ORDERED: dexameTHASONE 4 MG/ML 1ML VIAL (J1100 PER 1MG) As Ordered ONE (09:49)
[2021-04-25] MEDS ORDERED: fentaNYL 250 MCG/5 ML INJECTION (J3010) As Ordered ONE (09:49)
[2021-04-25] MEDS ORDERED: PHENYLephrine 500MCG 5ML (100MCG/ML) SYRINGE As Ordered ONE ×2 (09:54→10:14)
[2021-04-25] MEDS ORDERED: propofoL 200 MG/20 ML VIAL As Ordered ONE (10:02)
[2021-04-25] MEDS ORDERED: PERCOCET 5MG/325MG TAB PO PRN ×2 (10:55)
[2021-04-25] MEDS ORDERED: ONDANSETRON 4MG/2ML VIAL IV PRN ×2 (10:55→11:25)
[2021-04-25] MEDS ORDERED: BISACODYL 10 MG SUPP PR PRN (10:55)
[2021-04-25] MEDS ORDERED: KCL 20MEQ IN D5/NS 1000ML 1,000 ML IV SCH (10:55)
[2021-04-25] MEDS: ceFAZolin SOD 1 GM in D5W MINI-BAG PLUS 50 ML IV SCH ×2 (11:00→18:08)
--- NOTE | 2021-04-25 11:15 | RO ---
OPERATIVE NOTE DATE OF OPERATION: 04/25/2021 PREPROCEDURE DIAGNOSIS: Pericardial effusion and pending tamponade. POSTPROCEDURE DIAGNOSIS: Pericardial effusion and pending tamponade. PROCEDURE: Pericardial window, xiphoidectomy, and distal sternectomy. SURGEON: Suleman Duncan M.D. RIB BUILDER: None. ANESTHESIA: General. FINDINGS: 400 mL of serous fluid was removed from the pericardium. A window was created and a section of the pericardium was removed and sent for pathology. Fluid was sent for the requisite cytologies, hematologies, chemistries, and bacteriologies. DESCRIPTION OF PROCEDURE: Under satisfactory general anesthesia, the patient was prepped and draped in the usual sterile fashion. A midline incision over the distal sternum and upper abdomen was made. The linea alba was divided in its midline. The xiphoid process was removed as was a portion of the distal sternum in order to place the retractor beneath it. The sternum was then elevated by use of the retractor and the pericardial flap was removed so I could see the glistening pericardium. The pericardium was incised and fluid was removed. The pericardiostomy was then extended and a piece of pericardium was removed. The pleura was entered and additional pericardial fat was removed. This then created the pericardial window. Two chest tubes were placed with one in the pericardial well and one in the pleura and brought out through the midline of the abdomen. The linea alba was then closed with running 0-Vicryl suture. Subcutaneous tissue was closed with running 3-0 Vicryl suture. The skin was closed with running 3-0 Monocryl subcuticular suture. The patient tolerated the procedure well and left the operating room in satisfactory condition.
[2021-04-25] MEDS ORDERED: fentaNYL 100 MCG/2 ML INJECTION (J3010) IV PRN (11:30)
[2021-04-25 11:35] LABS: ABG BASE EXCESS -2.1 (-2.0-2.0); ABG HCO3 24.4 MEQ/L (22.0-26.0); ABG O2 SATURATION 96.1 % (95.0-99.0); ABG PARTIAL PRESSURE CO2 48.4 mmHg (35.0-45.0); ABG STANDARD HCO3 22.7 MEQ/L (22.0-26.0); ABG TOTAL CO2 25.9 MEQ/L (23.0-31.0)
[2021-04-25] MEDS: KETOROLAC 30 MG/ML 1ML VIAL IV SCH ×3 (11:41→23:01)
[2021-04-25 12:07] LABS: BASO % 0.2 % (0.0-1.0); EOS % 0.1 % (0.0-3.0); HEMATOCRIT 40.6 % (36.0-47.0); HEMOGLOBIN 13.1 g/dl (12.0-15.5); LYMPH # 1.5 10^3/uL (1.5-5.0); LYMPH % 8.1 % (24.0-44.0); MEAN CORPUSCULAR HEMOGLOBIN 29.9 pg (27.0-33.0); MEAN CORPUSCULAR HGB CONC 32.3 g/dl (32.0-36.5); MEAN CORPUSCULAR VOLUME 92.7 fl (80.0-96.0); MONO % 11.1 % (2.0-8.0); NEUTROPHILS # 14.5 10^3/uL (1.5-8.5); NEUTROPHILS % 78.8 % (36.0-66.0); PLATELET COUNT, AUTOMATED 562 10^3/uL (150-450); RED BLOOD COUNT 4.38 10^6/uL (4.00-5.40)
[2021-04-25 12:08] LABS: ANTINUCLEAR ANTIBODIES DIRECT Negative (Negative)
[2021-04-25 12:32] LABS: BLOOD UREA NITROGEN 22 MG/DL (7-18); CALCIUM LEVEL 8.9 MG/DL (8.8-10.2); CARBON DIOXIDE LEVEL 27 MEQ/L (21-32); CHLORIDE LEVEL 95 MEQ/L (98-107); CREATININE FOR GFR 0.86 MG/DL (0.55-1.30); GLOMERULAR FILTRATION RATE > 60.0 (>39); GLUCOSE, FASTING 156 MG/DL (70-100); POTASSIUM SERUM 5.8 MEQ/L (3.5-5.1); SODIUM LEVEL 127 MEQ/L (136-145)
[2021-04-25] MEDS ORDERED: METOPROLOL 5 MG/5 ML VIAL As Ordered ONE (12:39)
[2021-04-25] MEDS: METOPROLOL 5 MG/5 ML VIAL IV PRN ×2 (12:40→12:52)
[2021-04-25] MEDS ORDERED: PHENYLephrine 500MCG 5ML (100MCG/ML) SYRINGE IV PRN (12:45)
[2021-04-25 12:46] LABS: WHITE BLOOD COUNT 18.3 10^3/uL (4.0-10.0)
[2021-04-25 12:50] LABS: PH BODY FLUID > 7.800 UNITS (NOT ESTABLISHED); SOURCE, BODY FLUID pH PLEURAL
[2021-04-25 12:52] LABS: APPEARANCE, BODY FLUID CLOUDY (CLEAR); PLEURAL FL COLOR PINK (COLORLESS); SOURCE, BODY FLUID PLEURAL
[2021-04-25 12:58] LABS: PH BODY FLUID 7.397 UNITS (NOT ESTABLISHED); SOURCE, BODY FLUID pH PERICARDIAL
[2021-04-25 13:01] LABS: PH BODY FLUID > 7.800 UNITS (NOT ESTABLISHED); SOURCE, BODY FLUID pH PERICARDIAL
[2021-04-25] MEDS ORDERED: FUROSEMIDE 40MG/4ML VIAL (J1940) IV ONE (13:05)
[2021-04-25] MEDS: D5W/0.9% SODIUM CHLORIDE 1,000 ML IV SCH ×2 (13:05→23:02)
[2021-04-25 13:13] LABS: APPEARANCE, BODY FLUID TURBID (CLEAR); SOURCE, BODY FLUID PERICARDIAL
[2021-04-25] MEDS ORDERED: DIGOXIN INJ 0.5 MG/2 ML AMP (J1160) IV ONE (13:15)
[2021-04-25 13:17] LABS: LDH, BODY FLUID 483 U/L (NOT ESTABLISHED); LDH, BODY FLUID 981 U/L (NOT ESTABLISHED); SOURCE, BODY FLUID GLUCOSE PERICARDIAL; SOURCE, BODY FLUID GLUCOSE PLEURAL; SOURCE, BODY FLUID LDH PERICARDIAL; SOURCE, BODY FLUID LDH PLEURAL; SOURCE, BODY FLUID TOT PROTEIN PERICARDIAL; SOURCE, BODY FLUID TOT PROTEIN PLEURAL; TOTAL PROTEIN, BODY FLUID 2.3 G/DL (NOT ESTABLISHED); TOTAL PROTEIN, BODY FLUID 4.6 G/DL (NOT ESTABLISHED)
[2021-04-25 13:23] LABS: APPEARANCE, BODY FLUID TURBID (CLEAR); SOURCE, BODY FLUID PERICARDIAL
--- NOTE | 2021-04-25 13:24 | IPNPDOC ---
Date Seen The patient was seen on 04/25/21. Progress Note SUBJECTIVE: This is hospital day 4 for this patient. Upon entering the patient's room, the morning echocardiogram was being done. The patient was complaining of shortness of breath and stated that she could not get a good breath in. Dr. Miller was near the bedside and reported that the patient's ejection fraction may be decreasing due to her ongoing tachycardia that could not be resolved with rate control. Dr. Duncan was called to the bedside due to the impending cardiac tamponade. There was an increase in pericardial effusion that was seen on echocardiogram. There were no overnight events, but the nursing staff reported that the patient's heart rate was in the 140s all night, and that the shortness of breath started around 5-6am this AM. OBJECTIVE PHYSICAL EXAMINATION: VITAL SIGNS: Please see below. GENERAL: Patient is in moderate distress, visibly taking shallow breaths, with increased work of breathing, using abdominal muscles. HEENT: Normocephalic, atraumatic, no scleral icterus, oral mucosa moist CARDIOVASCULAR: Regularly irregular rhythm, tachycardic, no murmurs, rubs or gallops appreciated, during the medical interview, pt's HR fluctuated between 90s-140s. RESPIRATORY: shallow breathing, Diffuse end-expiratory wheezes. ABDOMINAL: Soft, nondistended, nontender, bowel sounds present EXTREMITIES:. Bilateral pedal edema still present, but has not progressed. No cyanosis or clubbing appreciated of the hands or feet. NEUROLOGICAL: Good tone, patient was sitting upright in bed, resting her back on the bed PSYCHOLOGICAL: Pt was alert, but she appeared in moderate distress as she could not breathe deeply. LABORATORY DATA, IMAGING STUDIES, MICROBIOLOGY: Please see below. Echocardiogram: 04/22/2021 1. Study is of fair technical quality, underlying flutter with variable ventricular rate. 2. Normal LV size with moderate LVH, at least mild left ventricular systolic dysfunction, and no segmental wall motion abnormalities. 3. Aortic sclerosis with no stenosis and mild insufficiency. 4. Trace mitral and tricuspid insufficiency. 5. At least mildly elevated central venous pressure and [id number] pulmonary hypertension. 6. Moderate pericardial effusion without signs of cardiac compression. 7. Dilated aortic root (4.0 cm). Echocardiogram: 04/25/2021-pending. Chest CT with [id number]/[address] resulted today showing: Moderate pericardial effusion measuring 1.5 cm in thickness. No evidence of pulmonary embolism. Small bilateral layering pleural effusions with overlying atelectasis versus infiltrates. Tiny opacities, apparently clustered in tree-in-bud distribution in the right upper lobe suggestive of endobronchial infection/inflammation. 5-6 mm right upper lung lobe nodule present. Dilated pulmonary trunk at 3.7 cm suggestive of pulmonary hypertension. Partially calcified plaque at the proximal left subclavian artery, resulting in 50-75% stenosis. Shotty likely reactive subcentimeter mediastinal lymph nodes seen in addition to a prominent right hilar lymph node at 1.8 X 1.5 centimeter. ASSESSMENT AND PLAN: This is a 80-year-old female with a past medical history significant for psoriatic arthritis being treated with Remicade infusions that started in December 2020. She presents for hospitalization due to progressive dyspnea, pericardial effusions, pleural effusions, and bilateral pedal edema. #Atrial flutter with rapid ventricular rate secondary to pericardial effusion vs heart failure exacerbation Patient presented with heart rate in the 150s and continued to have atrial flutter with rapid ventricular rate, despite Lopressor and amiodarone infusion in the ED. Dr. Miller was consulted, inpatient service team appreciates cardiology consult. Per Dr. Miller's recommendations: -This is likely secondary to pericardial effusion (etiology of pericardial effusion, not yet known, possibly secondary to Remicade treatment, which patient started for psoriatic arthritis in December 2020.) -Pericardial effusion was planned to be drained by Dr. Duncan immediately. -Subsequently, Dr. Miller was planning to consider anti-arrhythmic drugs, or cardioversion after monitoring how the patient tolerated the pericardial window. -Pt had wheezing prior to the pericardial window and Xopenex 2 puffs as needed was added. Please do not consider albuterol at this time due to the patient's ongoing tachycardia. #Tachycardia-induced Acute Systolic CHF in setting of h/o HFpEF -Echocardiogram on 04/25/2021, EF 20-25%, elevated JVD per Dr. Miller -Bilateral pleural effusions present on CT imaging 04/24/2021 -this is likely induced by prolonged tachycardia -inpatient team appreciates Dr. Miller's recommendations summarized under "#Atrial flutter with rapid ventricular rate secondary to pericardial effusion vs heart failure exacerbation" #Pericardial effusion. Etiology unknown at this time, considerations include history of psoriatic arthritis, Remicade administration, or neoplastic etiology. Patient has a history of psoriatic arthritis. Patient received Remicade beginning in December, which has a rare complication of pericardial effusions. The case was discussed over the phone with Appliance Adjuster, Dr. Sierra Moreno, who recommended prednisone and colchicine administration at this time. Colchicine administration will be 0.3 mg daily (decreased dose) since the patient is also receiving amiodarone (amiodarone predisposes patient to colchicine toxicity.) May consider pericardiocentesis or pericardial window if steroids and colchicine does not work to decrease pericardial effusion volume. Despite patient's adverse neuropsychiatric affect is secondary to steroid administration, patient steroid administration cannot be lowered at this time because colchicine dosage cannot be increased because patient is also on amiodarone. Cardiothoracic surgery, Dr. Duncan has been consulted on the case. Medical team appreciates Dr. Duncan's input. -Dr. Duncan will be doing a pericardial window today. #Hyponatremia. Dr. Miller suspects SIADH secretion in the setting of chest pressure resulting in hyponatremia. Patient has a history of heart failure, therefore normal saline was not started since sodium level was 121 and threshold in heart failure is treatment begins. If sodium level is less than 120, consider gentle hydration (gentle because patient has pericardial effusion and heart failure). Patient's sodium level is 127 today without much normal saline administration. Paraneoplastic etiology cannot be ruled out at this time. #Abnormal chest CT results Follow-up suggested for shotty likely reactive mediastinal lymph nodes prominent in the right hilar area. Outpatient follow-up CT chest recommended in 12 months due to finding of 5-6 mm nodule upper lung lobe. #Hypertensive heart failure Hold ASA at this time, pt had pericardial window done today. #Hypertension Lisinopril, home medication continued with holding parameters of SBP <120. #Pfk-[id number]-npyqvcyfc diabetes mellitus type 2. Continue sliding scale insulin. Hold home medication of metformin at this time. Hypoglycemic protocol in place. 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 Continue home medication Gabapentin #History of dizziness. Continue home medication, Meclizine 12.5 mg DVT prophylaxis: Patient is receiving Lovenox 80 mg twice a day subcutaneous. DISPOSITION: Discharge is not likely within the next couple days as the pt just had pericardial window placement today with chest tube placement today. VS, I&O, [facility] Vital Signs/I&O Vital Signs Date Time Temp Pulse Resp B/P (MAP) Pulse Ox O2 Delivery O2 Flow Rate FiO2 04/25/21 12:03 96.9 140 18 110/64 (79) 93 Nasal Cannula 3.0 I&O- Last 24 Hours up to 6 AM 04/25/21 05:59 Intake Total 2160 ml Output Total 1575 ml Balance 585 ml Laboratory Data 24H LABS Laboratory Tests 2 04/24/21 12:40: Bedside Glucose (Misc Panel) 200H 04/24/21 17:33: Bedside Glucose (Misc Panel) 174H 04/24/21 20:09: Bedside Glucose (Misc Panel) 162H 04/24/21 23:25: Bedside Glucose (Misc Panel) 151H 04/25/21 04:37: Immature Granulocyte % (Auto) 1.1, Neutrophils (%) (Auto) 68.7H, Lymphocytes (%) (Auto) 19.8L, Monocytes (%) (Auto) 10.1H, Eosinophils (%) (Auto) 0.1, Basophils (%) (Auto) 0.2, Neutrophils # (Auto) 9.5H, Lymphocytes # (Auto) 2.7, Monocytes # (Auto) 1.4H, Eosinophils # (Auto) 0.0, Basophils # (Auto) 0.0, Nucleated Red Blood Cells % (auto) 0.0, Anion Gap 5L, Glomerular Filtration Rate > 60.0, Calcium Level 7.6L 04/25/21 10:52: Blood Gas Bicarbonate Standard 22.7, Arterial Blood pH 7.320L, Arterial Blood Partial Pressure CO2 48.4H, Arterial Blood Partial Pressure O2 92.0, Arterial Blood Total CO2 25.9, Arterial Blood HCO3 24.4, Arterial Blood Base Excess - 2.1L, Arterial Blood Oxygen Saturation 96.1 04/25/21 11:00: 04/25/21 11:00: Lab Scanned Report Miscellaneous Lab 04/25/21 11:40: CBC/BMP Laboratory Tests 04/25/21 04:37 Microbiology Microbiology 04/25/21 Acid Fast Stain, Received Pending 04/25/21 Mycobacterial Culture, Received Pending 04/25/21 Fungal Smear, Received Pending 04/25/21 Fungal Culture, Received Pending 04/25/21 Gram Stain, Received Pending 04/25/21 Body Fluid Culture, Received Pending 04/25/21 Anaerobic Culture, Received Pending 04/25/21 Acid Fast Stain, Received Pending 04/25/21 Mycobacterial Culture, Received Pending 04/25/21 Fungal Smear, Received Pending 04/25/21 Fungal Culture, Received Pending 04/25/21 Gram Stain, Received Pending 04/25/21 Body Fluid Culture, Received Pending 04/25/21 Anaerobic Culture, Received Pending 04/25/21 Acid Fast Stain, Received Pending 04/25/21 Mycobacterial Culture, Received Pending 04/25/21 Fungal Smear, Received Pending 04/25/21 Fungal Culture, Received Pending 04/25/21 Gram Stain, Received Pending 04/25/21 Body Fluid Culture, Received Pending 04/25/21 Anaerobic Culture, Received Pending 04/22/21 Respiratory Virus Panel (PCR) ([facility]) - Final, Complete GME ATTESTATION GME ATTESTATION My faculty preceptor for this patient encounter was physically present during the encounter and was fully available. All aspects of the patient interview, examination, medical decision making process, and medical care plan development were reviewed and approved by the faculty preceptor. The faculty preceptor is aware and concurs with the plan as stated in the body of this note and will attest to such by his/her cosignature. ATTENDING NOTE Attending Attestation: Patient independently seen and examined. I have discussed in detail with the re sident the findings and plan of treatment as documented by the resident. I agree with their findings and treatment plan. I will continue to follow the patient during this hospital stay. Cheko Castellanos DO Apr 25, 2021 13:23 STEPHEN BLANK MD Apr 26, 2021 06:37
[2021-04-25 13:32] LABS: LDH, BODY FLUID 1317 U/L (NOT ESTABLISHED); SOURCE, BODY FLUID GLUCOSE PERICARDIAL; SOURCE, BODY FLUID LDH PERICARDIAL; SOURCE, BODY FLUID TOT PROTEIN PERICARDIAL; TOTAL PROTEIN, BODY FLUID 4.5 G/DL (NOT ESTABLISHED)
--- NOTE | 2021-04-25 13:59 | REP ---
INDICATION: pericardial efusion COMPARISON: 04/25/2021 at 7:15 a.m. TECHNIQUE: Portable AP view of the chest FINDINGS: Pericardial drain and right chest tube had been placed. Right hemithorax is relatively clear by portable x-ray evaluation. Left lower lobe opacity suggests consolidation and moderate pleural effusion unchanged from prior examination. No obvious pneumothorax identified. Skeletal structures are intact. IMPRESSION: Pericardial drain and right chest tube in place. No obvious right pleural effusion or pneumothorax. Left lower lobe opacities suggest consolidation and moderate effusion. <Electronically signed by Vito Haque > 04/25/21 [id number]
[2021-04-25] MEDS: NORCO, ANEXSIA 5/325MG TABLET (HYDROcodone/ACETAMINOPHEN) PO PRN (15:41)
[2021-04-25] MEDS: GABAPENTIN 300 MG CAP PO SCH (21:00)
[2021-04-25] MEDS: DOCUSATE SODIUM 100MG CAPSULE PO SCH (21:00)
[2021-04-25] MEDS: TAFLUPROST OS SCH (21:00)
[2021-04-25] MEDS ORDERED: HumaLOG INSULIN (NovoLOG) PER UNIT SC ONE (22:00)
[2021-04-26] VITALS (8 sets, daily range): BP systolic 96–162; BP diastolic 57–87
[2021-04-26] MEDS: ceFAZolin SOD 1 GM in D5W MINI-BAG PLUS 50 ML IV SCH ×3 (03:43→18:03)
[2021-04-26] MEDS: KETOROLAC 30 MG/ML 1ML VIAL IV SCH ×4 (05:00→22:00)
[2021-04-26 05:25] LABS: BASO % 0.1 % (0.0-1.0); HEMATOCRIT 35.1 % (36.0-47.0); HEMOGLOBIN 11.3 g/dl (12.0-15.5); LYMPH # 2.4 10^3/uL (1.5-5.0); LYMPH % 16.6 % (24.0-44.0); MEAN CORPUSCULAR HEMOGLOBIN 29.4 pg (27.0-33.0); MEAN CORPUSCULAR HGB CONC 32.2 g/dl (32.0-36.5); MEAN CORPUSCULAR VOLUME 91.4 fl (80.0-96.0); MONO # 1.5 10^3/uL (0.0-0.8); MONO % 10.2 % (2.0-8.0); NEUTROPHILS # 10.3 10^3/uL (1.5-8.5); NEUTROPHILS % 72.1 % (36.0-66.0); RED BLOOD COUNT 3.84 10^6/uL (4.00-5.40)
[2021-04-26 05:30] LABS: PLATELET COUNT, AUTOMATED 434 10^3/uL (150-450); WHITE BLOOD COUNT 14.4 10^3/uL (4.0-10.0)
[2021-04-26 05:44] LABS: ABG BASE EXCESS 2.3 (-2.0-2.0); ABG HCO3 27.1 MEQ/L (22.0-26.0); ABG O2 SATURATION 92.8 % (95.0-99.0); ABG PARTIAL PRESSURE CO2 42.6 mmHg (35.0-45.0); ABG PARTIAL PRESSURE O2 65.5 mmHg (75.0-100.0); ABG STANDARD HCO3 26.4 MEQ/L (22.0-26.0); ABG TOTAL CO2 28.4 MEQ/L (23.0-31.0); ABG pH (ARTERIAL) 7.421 UNITS (7.350-7.450)
[2021-04-26] MEDS: LEVOTHYROXINE 50MCG TABLET (0.05MG) PO SCH (05:51)
[2021-04-26] MEDS: METOPROLOL TART 25 MG TABLET PO SCH ×3 (05:52→22:02)
[2021-04-26 06:51] LABS: CALCIUM LEVEL 7.6 MG/DL (8.8-10.2); CREATININE FOR GFR 0.98 MG/DL (0.55-1.30); DIGOXIN LEVEL 1.8 NG/ML (0.5-2.0); GLOMERULAR FILTRATION RATE 58.4 (>39); POTASSIUM SERUM 4.8 MEQ/L (3.5-5.1)
[2021-04-26] MEDS: HumaLOG INSULIN (NovoLOG) PER UNIT SC SCH ×4 (07:30→20:28)
[2021-04-26 07:44] LABS: TROPONIN I 0.04 NG/ML (< 0.10)
[2021-04-26] MEDS ORDERED: FUROSEMIDE 20MG/2ML VIAL (J1940) IV ONE (08:00)
--- NOTE | 2021-04-26 08:25 | REP ---
INDICATION: pericardial efusion COMPARISON: 04/25/2021 TECHNIQUE: PA and lateral. FINDINGS: Right-sided chest tube and pericardial drainage catheter are in stable position. Right hemithorax suggests moderate layering pleural effusion. Left hemithorax demonstrates consolidation and effusion similar to prior examination. The mediastinum and cardiac silhouette are relatively stable. No obvious pneumothorax identified. IMPRESSION: 1. No significant change from prior examination. Findings include suspected layering right pleural effusion along with left lower lobe consolidation and effusion. 2. Right-sided chest tube and pericardial drainage catheter in stable position. <Electronically signed by Vito Haque > 04/26/21 0813
[2021-04-26] MEDS: ENOXAPARIN 80MG/0.8ML SYRINGE (J1650 PER 10MG) SC SCH ×2 (08:58→20:29)
[2021-04-26] MEDS: COLCHICINE 0.6 MG TABLET PO SCH (08:59)
[2021-04-26] MEDS: DOCUSATE SODIUM 100MG CAPSULE PO SCH ×2 (08:59→20:30)
[2021-04-26] MEDS: ATORVASTATIN 10 MG TAB PO SCH (08:59)
[2021-04-26] MEDS: PANTOPRAZOLE 40MG TAB (PROTONIX) PO SCH (09:00)
[2021-04-26] MEDS ORDERED: MOM 30ML SUSPENSION UDC PO SCH (09:00)
[2021-04-26] MEDS: predniSONE 20 MG TAB PO SCH (09:00)
[2021-04-26] MEDS: AMIODARONE 200 MG TAB (PACERONE) PO SCH ×2 (09:00→20:30)
--- NOTE | 2021-04-26 09:15 | IPN ---
PROGRESS NOTE DATE: 04/26/2021 Ms. Ray had a pericardial window placed by Dr. Duncan yesterday morning. The procedure was uneventful but it did not seem to slow down her heart rate. Consequently, post-surgically she received an additional dose of digoxin and her metoprolol which eventually led to good rate control. She stayed well rate controlled overnight. She tells me that she is feeling much better, she was able to sleep, the breathing is not labored when she lays flat. She denies any chest discomfort per se. The output from both the pleural drain as well as from the pericardial drain is fairly minimal. She has about 100 mL from the pleural and about 50 or 60 mL for the pericardial space. She remains in atrial flutter. Vital signs: Blood pressure this morning 136/81, heart rate was from 70s to 90s, atrial flutter with variable atrioventricular (AV) conduction, she is afebrile, saturation is 94% on 1 liter of oxygen. Fluid balance yesterday was recorded as about positive 600, weight has not been recorded this morning yet but she made over 2 liters of urine yesterday and almost 500 mL of urine this morning. Her jugular venous pressure (JVP) does not look high. Lungs are diminished on the left base, there are some crackles on the right, faint, air movement seems to be relatively poor. Heart exam reveals still somewhat muffled heart sounds but irregular rhythm. I still do not appreciate any rub, murmur, or gallop. Abdomen is soft, nontender. Extremities have trace edema. Neurologically she is intact, alert, oriented and appropriate, and moves all four extremities. LABORATORIES: Both pleural and pericardial fluid have very high HDL count indicative of inflammatory etiology. The basic metabolic panel reveals sodium 131, potassium 4.8, BUN 23, creatinine 1.0, and glucose 170. CBC: WBC count 14, hemoglobin 11.3, hematocrit 35, platelet count 434,000. Digoxin level this morning was 1.8 after she received a total of 0.75 mg yesterday. ASSESSMENT AND PLAN: Ms. Ray is a 80-year-old female who has a history of psoriatic arthritis and was started on Remicade a few months ago, presents with atrial flutter with rapid ventricular response (RVR) in the setting of pericardial effusion. Initially, we were treating her medically with steroids and colchicine for the effusion, but then yesterday her condition deteriorated and we saw early signs of cardiac compression on echocardiogram and consequently she was taken to the operating room (OR) by Dr. Duncan and had a pericardial window placed, approximately 400 mL of fluid were eliminated and the analysis is suggestive of inflammatory etiology, as expected. We will continue her chronic administration of colchicine and prednisone. I think it is very likely that either the psoriatic etiology or the medication used were responsible. As far as the management of atrial flutter is concerned, she is now reasonably well rate controlled. The amiodarone was started on admission and I will continue the current dose. She is also receiving metoprolol 25 mg every 8 hours plus she received digoxin. I am going to hold on administering additional doses of digoxin today, I would prefer if we can get away without it, but if not we can always give her small additional doses, but as the amiodarone will exert more and more potency over time I am hoping that we will not need digoxin in the mix. Finally, I do believe that she is mildly volume overloaded. She did get additional fluids overnight that were stopped this morning. I am going to give her a small dose of furosemide in order to eliminate some of the excess fluids; hopefully it will be well tolerated. Overall, I am quite optimistic, she certainly looks markedly better than yesterday and hopefully the further clinical course will not be eventful.
--- NOTE | 2021-04-26 10:38 | IPN ---
PROGRESS NOTE DATE: 04/26/2021 SUBJECTIVE: This is now the first postoperative day for Mrs. Ray after her pericardial window and tube pericardiostomy. After the operation yesterday, she was feeling 100% better and as no longer short of breath. The same applies this morning. Her pain is fairly well-controlled. OBJECTIVE: VITAL SIGNS: Show a T-max of 97.8 with a heart rate that ranges between 74 and 91 with a respiratory rate that is constant 16 who is 94% to 98% saturated on 1 liter nasal cannula and whose blood pressure is ranging between 136/81 to 96/57. INTAKE AND OUTPUT: Over the past 24 hours has been recorded as 2870 in and 2208 out for a positivity of 660 mL. She has put out 70 mL from the pericardial tube and 28 mL from pleural tube. Weight is pending on her today. RESPIRATORY: Her lungs show equal breath sounds on either side. There are some inspiratory crackles during late inspiration particularly at the left side at the base. Percussion notes are full to the diaphragm. CARDIAC: Does not show a pericardial friction rub. S1 and S2 are normal. ABDOMEN: Tympanitic and distended with hypoactive bowel sounds. She has not yet passed flatus. There is no CVA tenderness and no hepatomegaly. EXTREMITIES: Show no pretibial edema. No calf tenderness. No differential swelling of the upper extremities. SKIN: Warm, dry, and perfused without cyanosis or mottling, including that of the nail beds and knees. NECK: Supple. There is no jugular venous distention. No subcutaneous emphysema. Trachea is midline. MOUTH: Shows the mucous membranes to be pink and moist. Lips and commisures are without lesions and no thrush. EYES: Show her pupils equal and reactive. Extraocular muscles are intact. Sclerae nonicteric. NEUROLOGIC: Shows II through XII intact. Normal gross motor, gross sensation intact. Gait is not tested. PSYCHIATRIC: Shows her to be awake, alert, and oriented x3 with appropriate mood and affect and conversational. LABORATORY DATA: Her white count today is 14.4 down from 18.3 yesterday in the recovery room. Hemoglobin and hematocrit are 11.3 and 35.1 respectively. Platelet count is 434,000 and stable. Differential shows 72% neutrophils, 16% lymphocytes, and 10% monocytes. There are no immature forms and no toxic granulations. Her chemistries today show a sodium of 131 with a BUN and creatinine of 23 and 0.98, glucose of 170, and a calcium of 7.6. She remains on Toradol. Blood gases this morning show a pH of 7.39 with a white count of 91,000, 16% of which are monocytes, and 83% are neutrophils. Glucose is 93 with an LDH of 91. This therefore looks like a neutrophilic exudative effusion. IMAGING DATA: Her chest x-ray shows her lungs fully expand to the chest wall. It looks like there is a vague opacity in the left lower hemithorax, which is probably remnant of an effusion. The lateral chest x-ray confirms blunting of the costophrenic angle. Chest tubes are in good place with the pericardial tube in the pericardial well and the chest tube trinket posteriorly. IMPRESSION: 1. Postoperative day #1 status post pericardial window and tube pericardiostomy. 2. Impending cardiac tamponade relieved with the above procedure. 3. Atrial flutter new onset. 4. Inflammatory pericardial effusion of unknown etiology. 5. Hypertension. 6. Psoriatic arthritis on Remicade q. month. 7. Possible history of cerebrovascular accident (CVA). 8. Diabetes. 9. Hypothyroidism. 10. Moderate ventricular dysfunction with ejection fraction of 40% decreasing to about 25% on yesterday's echo prior to her procedure. PLAN AND DISCUSSION: I am very gratified by the clinical results of the procedure. She is breathing a lot better and is a lot more comfortable. We still do not know why she has the pericardial effusion. It looks inflammatory, but predominantly neutrophilic. She has no history of a viral syndrome prodrome. She does have the autoimmune phenomenon of psoriatic arthritis for which she was on Remicade. Final pathology is pending, but I do not suspect malignancy. This then leaves us with an inflammatory response, which could be secondary to the Remicade. I would like to make sure that all the other usual suspects for pericardial effusion are ruled out prior to assigning the cause to the Remicade, however.
[2021-04-26] MEDS: COMBIGAN OS SCH ×2 (11:43→20:31)
[2021-04-26] MEDS ORDERED: METOPROLOL TART 50 MG TAB PO STA (13:21)
[2021-04-26] MEDS: MIRALAX *UNIT DOSE* 17GM PACKET PO PRN (15:41)
[2021-04-26] MEDS ORDERED: METOPROLOL TART 25 MG TABLET PO STA (16:13)
--- NOTE | 2021-04-26 16:20 | IPNPDOC ---
Date Seen The patient was seen on 04/26/21. Progress Note SUBJECTIVE: This is hospital day 5 for this patient. Pericardial window procedure was done by Dr. Duncan yesterday, 04/25/2021, without complications. The patient was alert and reported that she is feeling better today. She received 1 dose of digoxin yesterday. Overnight, the patient complained of chest pain, and a troponin was ordered. However, the troponin was 0.04 and the patient had no significant telemetry changes. The patient had Jell-O and denied nausea, vomiting, diarrhea or constipation at this time. She will be advancing to consistent carbohydrate diet today. OBJECTIVE PHYSICAL EXAMINATION: VITAL SIGNS: Please see below. GENERAL: Patient is in no acute distress, resting comfortably in the wheelchair while the nurse is giving patient a sponge bath. HEENT: Normocephalic, atraumatic, no scleral icterus, oral mucosa moist CARDIOVASCULAR: Regularly irregular rhythm, normal rate in the 80s, no murmurs, rubs or gallops appreciated. RESPIRATORY: Bibasilar crackles appreciated ABDOMINAL: Soft, nondistended, nontender, bowel sounds present EXTREMITIES:. Bilateral pedal edema still present, but has not progressed. No cyanosis or clubbing appreciated of the hands or feet. NEUROLOGICAL: Good tone. PSYCHOLOGICAL: Pt was alert and cooperative on exam.. LABORATORY DATA, IMAGING STUDIES, MICROBIOLOGY: Please see below. Echocardiogram: 04/22/2021 1. Study is of fair technical quality, underlying flutter with variable ventricular rate. 2. Normal LV size with moderate LVH, at least mild left ventricular systolic dysfunction, and no segmental wall motion abnormalities. 3. Aortic sclerosis with no stenosis and mild insufficiency. 4. Trace mitral and tricuspid insufficiency. 5. At least mildly elevated central venous pressure and [id number] pulmonary hypertension. 6. Moderate pericardial effusion without signs of cardiac compression. 7. Dilated aortic root (4.0 cm). Echocardiogram: 04/25/2021 No official reading on echocardiogram, but per Dr. Miller: "a 2-dimensional echocardiogram was obtained. It revealed approximately moderate size pericardial effusion but there were some early signs of cardiac compression, specifically there is a significant variation on both tricuspid and mitral in-flow velocities, there is also partial free right atrial wall collapse dependent on respiration. Additional findings, she now has significant LV systolic dysfunction. I estimate her EF around 20 to 25% and there are bilateral pleural effusions." Chest CT with /07/[address] resulted today showing: Moderate pericardial effusion measuring 1.5 cm in thickness. No evidence of pulmonary embolism. Small bilateral layering pleural effusions with overlying atelectasis versus infiltrates. Tiny opacities, apparently clustered in tree-in-bud distribution in the right upper lobe suggestive of endobronchial infection/inflammation. 5-6 mm right upper lung lobe nodule present. Dilated pulmonary trunk at 3.7 cm suggestive of pulmonary hyp ertension. Partially calcified plaque at the proximal left subclavian artery, resulting in 50-75% stenosis. Shotty likely reactive subcentimeter mediastinal lymph nodes seen in addition to a prominent right hilar lymph node at 1.8 X 1.5 centimeter. ASSESSMENT AND PLAN: This is a 80-year-old female with a past medical history significant for psoriatic arthritis being treated with Remicade infusions that started in December 2020. She presents for hospitalization due to progressive dyspnea, pericardial effusions, pleural effusions, and bilateral pedal edema. #Atrial flutter with rapid ventricular rate secondary to pericardial effusion vs heart failure exacerbation Patient presented with heart rate in the 150s and continued to have atrial flutter with rapid ventricular rate, despite Lopressor and amiodarone infusion in the ED. Dr. Miller was consulted, inpatient service team appreciates cardiology consult. Per Dr. Miller's recommendations: -This is likely secondary to pericardial effusion (etiology of pericardial effusion, not yet known, possibly secondary to Remicade treatment, which patient started for psoriatic arthritis in December 2020.) -Pericardial effusion was drained by Dr. Duncan on 04/25/2021. -Patient received 0.[address] Miller on 04/25/2021 after per icardial window was done by Dr. Duncan -Continue metoprolol tartrate 25 mg every [address] Miller. -Pt had wheezing prior to the pericardial window and Xopenex 2 puffs as needed was added. Please do not consider albuterol at this time due to the patient's ongoing tachycardia. #Pericardial effusion status post pericardial window Etiology unknown at this time, considerations include history of psoriatic arthritis, Remicade administration, or neoplastic etiology. Patient has a history of psoriatic arthritis. Patient received Remicade beginning in December, which has a rare complication of pericardial effusions. The case was discussed over the phone with [facility]aker, Dr. Sierra Moreno, who recommended prednisone and colchicine administration at this time. Colchicine administration will be 0.3 mg daily (decreased dose) since the patient is also receiving amiodarone (amiodarone predisposes patient to colchicine toxicity.) Pericardial window has been done. Despite patient's adverse neuropsychiatric affect is secondary to steroid administration, patient steroid administration cannot be lowered at this time because colchicine dosage cannot be increased because patient is also on amiodarone. Cardiothoracic surgery, Dr. Duncan has been consulted on the case. Medical te am appreciates Dr. Duncan's input. IV cefazolin and was started for this patient due to surgery, this is being managed by Dr. Duncan. #Elevated troponin. Patient's troponin level of 0.04 is not significantly elevated from less than 0.02 on 04/22/2021, despite cardiac surgery yesterday, 04/25/2021, trending not considered at this time. If patient's chest pain presents again, consider trending troponin. #Tachycardia-induced Acute Systolic CHF in setting of h/o HFpEF -Echocardiogram on 04/25/2021, EF 20-25%, elevated JVD per Dr. Miller -Bilateral pleural effusions present on CT imaging 04/24/2021 -this is likely induced by prolonged tachycardia -inpatient team appreciates Dr. Miller's recommendations summarized under "#Atrial flutter with rapid ventricular rate secondary to pericardial effusion vs heart failure exacerbation" PT/OT evaluation and subsequent treatment has been ordered for patient due to decrease in ejection fraction. #Hyponatremia. Dr. Miller suspects SIADH secretion in the setting of chest pressure resulting in hyponatremia. Patient has a history of heart failure, therefore normal saline was not started since sodium level was 121 and threshold in heart failure is treatment begins. If sodium level is less than 120, consider gentle hydration (gentle because patient has pericardial effusion and heart failure). Patient's sodium level is 131 today after receiving 1 L of normal saline yesterday 04/25/[address] Duncan. Paraneoplastic etiology cannot be ruled out at this time. #Abnormal chest CT results Follow-up suggested for shotty likely reactive mediastinal lymph nodes prominent in the right hilar area. Outpatient follow-up CT chest recommended in 12 months due to finding of 5-6 mm nodule upper lung lobe. #Hypertensive heart failure Hold ASA at this time, pt had pericardial window done yesterday. #Hypertension Lisinopril, home medication has been held by Dr. Miller. Dr. Miller's management of patient's hypertension is appreciated by inpatient service team. #Zat-qmevbij-tnexiwnsi diabetes mellitus type 2. Continue sliding scale insulin. Hold home medication of metformin at this time. Hypoglycemic protocol in place. 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 Continue home medication Gabapentin #History of dizziness. Continue home medication, Meclizine 12.5 mg DVT prophylaxis: Patient is receiving Lovenox 80 mg twice a day subcutaneous. DISPOSITION: Discharge is not likely within the next couple days as the pt just had pericardial window placement today with chest tube placement today. VS, I&O, 24H, Fishbone Vital Signs/I&O Vital Signs Date Time Temp Pulse Resp B/P (MAP) Pulse Ox O2 Delivery O2 Flow Rate FiO2 04/26/21 13:27 147 138/69 04/26/21 12:00 1.0 04/26/21 12:00 97.0 18 96 Nasal Cannula I&O- Last 24 Hours up to 6 AM 04/26/21 06:00 Intake Total 3420 ml Output Total 1986 ml Balance 1434 ml Laboratory Data 24H LABS Laboratory Tests 2 04/25/21 16:43: Bedside Glucose (Misc Panel) 227H 04/25/21 20:22: Bedside Glucose (Misc Panel) 224H 04/25/21 21:28: Bedside Glucose (Misc Panel) 212H 04/26/21 05:01: Immature Granulocyte % (Auto) 1.0, Neutrophils (%) (Auto) 72.1H, Lymphocytes (%) (Auto) 16.6L, Monocytes (%) (Auto) 10.2H, Eosinophils (%) (Auto) 0.0, Basophils (%) (Auto) 0.1, Neutrophils # (Auto) 10.3H, Lymphocytes # (Auto) 2.4, Monocytes # (Auto) 1.5H, Eosinophils # (Auto) 0.0, Basophils # (Auto) 0.0, Nucleated Red Blood Cells % (auto) 0.0, Anion Gap 2L, Glomerular Filtration Rate 58.4, Calcium Level 7.6L, Troponin I 0.04, Digoxin Level 1.8 04/26/21 05:30: Blood Gas Bicarbonate Standard 26.4H, Arterial Blood pH 7.421, Arterial Blood Partial Pressure CO2 42.6, Arterial Blood Partial Pressure O2 65.5L, Arterial Blood Total CO2 28.4, Arterial Blood HCO3 27.1H, Arterial Blood Base Excess 2.3H, Arterial Blood Oxygen Saturation 92.8L 04/26/21 11:37: Bedside Glucose (Misc Panel) 191H CBC/BMP Laboratory Tests 04/26/21 05:01 Microbiology Microbiology 04/25/21 Acid Fast Stain, Received Pending 04/25/21 Mycobacterial Culture, Received Pending 04/25/21 Fungal Smear, Received Pending 04/25/21 Fungal Culture, Received Pending 04/25/21 Gram Stain - Final, Resulted 04/25/21 Body Fluid Culture, Resulted Pending 04/25/21 Anaerobic Culture, Resulted Pending 04/25/21 Acid Fast Stain, Received Pending 04/25/21 Mycobacterial Culture, Received Pending 04/25/21 Fungal Smear, Received Pending 04/25/21 Fungal Culture, Received Pending 04/25/21 Gram Stain - Final, Resulted 04/25/21 Body Fluid Culture, Resulted Pending 04/25/21 Anaerobic Culture, Resulted Pending 04/25/21 Acid Fast Stain, Received Pending 04/25/21 Mycobacterial Culture, Received Pending 04/25/21 Fungal Smear, Received Pending 04/25/21 Fungal Culture, Received Pending 04/25/21 Gram Stain - Final, Resulted 04/25/21 Body Fluid Culture, Resulted Pending 04/25/21 Anaerobic Culture, Resulted Pending 04/22/21 Respiratory Virus Panel (PCR) ([facility]) - Final, Complete GME ATTESTATION GME ATTESTATION My faculty preceptor for this patient encounter was physically present during the encounter and was fully available. All aspects of the patient interview, exa mination, medical decision making process, and medical care plan development were reviewed and approved by the faculty preceptor. The faculty preceptor is aware and concurs with the plan as stated in the body of this note and will attest to such by his/her cosignature. ATTENDING NOTE Attending Attestation: Patient independently seen and examined. I have discussed in detail with the resident the findings and plan of treatment as documented by the resident. I agree with their findings and treatment plan. I will continue to follow the patient during this hospital stay. Cheko Castellanos DO Apr 26, 2021 16:20 STEPHEN BLANK MD Apr 27, 2021 09:52
[2021-04-26] MEDS: GABAPENTIN 300 MG CAP PO SCH (20:28)
[2021-04-26] MEDS: TAFLUPROST OS SCH (21:00)
[2021-04-27] VITALS (8 sets, daily range): BP systolic 120–165; BP diastolic 62–84
[2021-04-27] MEDS: ceFAZolin SOD 1 GM in D5W MINI-BAG PLUS 50 ML IV SCH (02:44)
[2021-04-27] MEDS: RAMELTEON 8 MG TAB (ROZEREM) PO PRN ×2 (02:44→23:30)
[2021-04-27 04:26] LABS: BASO % 0.2 % (0.0-1.0); EOS % 0.1 % (0.0-3.0); HEMATOCRIT 37.2 % (36.0-47.0); HEMOGLOBIN 12.1 g/dl (12.0-15.5); LYMPH # 2.9 10^3/uL (1.5-5.0); LYMPH % 19.8 % (24.0-44.0); MEAN CORPUSCULAR HEMOGLOBIN 29.6 pg (27.0-33.0); MEAN CORPUSCULAR HGB CONC 32.5 g/dl (32.0-36.5); MONO # 1.4 10^3/uL (0.0-0.8); MONO % 9.8 % (2.0-8.0); NEUTROPHILS # 9.8 10^3/uL (1.5-8.5); PLATELET COUNT, AUTOMATED 474 10^3/uL (150-450); RED BLOOD COUNT 4.09 10^6/uL (4.00-5.40); WHITE BLOOD COUNT 14.4 10^3/uL (4.0-10.0)
[2021-04-27 04:51] LABS: BLOOD UREA NITROGEN 25 MG/DL (7-18); CALCIUM LEVEL 7.4 MG/DL (8.8-10.2); CARBON DIOXIDE LEVEL 32 MEQ/L (21-32); CHLORIDE LEVEL 97 MEQ/L (98-107); CREATININE FOR GFR 0.68 MG/DL (0.55-1.30); GLOMERULAR FILTRATION RATE > 60.0 (>39); GLUCOSE, FASTING 125 MG/DL (70-100); POTASSIUM SERUM 4.9 MEQ/L (3.5-5.1); SODIUM LEVEL 132 MEQ/L (136-145)
[2021-04-27] MEDS: LEVOTHYROXINE 50MCG TABLET (0.05MG) PO SCH (05:24)
[2021-04-27] MEDS: KETOROLAC 30 MG/ML 1ML VIAL IV SCH ×4 (05:24→23:00)
[2021-04-27] MEDS: METOPROLOL TART 25 MG TABLET PO SCH (05:25)
--- NOTE | 2021-04-27 05:38 | ECGEPIP ---
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
--- NOTE | 2021-04-27 05:49 | ECGEPIP ---
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
[2021-04-27] MEDS: HumaLOG INSULIN (NovoLOG) PER UNIT SC SCH ×4 (07:30→20:26)
[2021-04-27] MEDS ORDERED: METOPROLOL TART 25 MG TABLET PO ONE (08:00)
--- NOTE | 2021-04-27 08:50 | REP ---
INDICATION: pericardial efusion COMPARISON: 04/26/2021 TECHNIQUE: PA and lateral. FINDINGS: Right-sided chest tube in stable position with vague right lower lobe opacities suggesting small residual pleural effusion essentially unchanged from prior examination. Moderate left pleural effusion appears to be increased from prior examination. Associated underlying atelectasis and possible left lower lobe partial collapse/consolidation is again suggested. Visualized mediastinum and cardiac silhouette are stable and within normal limits. No obvious pneumothorax. Skeletal structures are stable. IMPRESSION: 1. Relatively stable appearance to the right hemithorax with chest tube in place and suspected small layering effusion. 2. Increased left pleural effusion with suspected left lower lobe consolidation. <Electronically signed by Vito Haque > 04/27/21 0833
[2021-04-27] MEDS ORDERED: PILL CUTTER 1 EACH XX PRN (09:00)
[2021-04-27] MEDS ORDERED: MOM 30ML SUSPENSION UDC PO PRN (09:20)
[2021-04-27] MEDS: ENOXAPARIN 80MG/0.8ML SYRINGE (J1650 PER 10MG) SC SCH ×2 (09:28→20:18)
[2021-04-27] MEDS: COMBIGAN OS SCH ×2 (09:28→20:16)
[2021-04-27] MEDS: FUROSEMIDE 20 MG TAB PO SCH (09:29)
[2021-04-27] MEDS: AMIODARONE 200 MG TAB (PACERONE) PO SCH ×2 (09:30→20:17)
[2021-04-27] MEDS: ATORVASTATIN 10 MG TAB PO SCH (09:30)
[2021-04-27] MEDS: DOCUSATE SODIUM 100MG CAPSULE PO SCH ×2 (09:30→20:26)
[2021-04-27] MEDS: PANTOPRAZOLE 40MG TAB (PROTONIX) PO SCH (09:31)
--- NOTE | 2021-04-27 09:31 | IPN ---
PROGRESS NOTE DATE: 04/27/2021 SUBJECTIVE: Mrs. Ray had a relatively uneventful day yesterday. Her heart rate was initially well controlled in the morning, but then during the day she became more tachycardic, and I had to give her additional doses of beta blockers, but eventually her heart rate has been well controlled throughout the afternoon and night. She denies any chest discomfort. The output from both pericardial and pleural drain has been minimal. OBJECTIVE: This morning blood pressure was 165/81. Heart rate currently in the 70s. She is afebrile. Saturation is 99% on 1 liter of nasal cannula. Her fluid balance yesterday was reported as about 200 mL negative, but the weight is reported as 92 kg which is considerably up since admission. She is alert, oriented, and appropriate. Her JVP does not look high. Lungs are relatively clear on the right. On the left, I do not appreciate much of lung sounds over the base, but her inspiratory effort has been quite poor. Heart exam reveals irregular rhythm. I do not appreciate any gallop or murmur. Abdomen is soft without tenderness. There is mild peripheral edema. Neurologically she is intact. LABORATORY DATA: Basic metabolic panel: Sodium 132, potassium 4.9, BUN 25, creatinine 0.7, glucose 125. CBC reveals WBC count 14.4, hemoglobin 12.1, hematocrit 37, and platelet count 474,000. ASSESSMENT AND PLAN: Mrs. Ray is a 80-year-old female who came with atrial flutter with rapid ventricular response in the setting of underlying bifascicular block. She was found to have approximately moderate pericardial effusion and eventually developed early signs of compression, and pericardial window was performed by Dr. Duncan two weeks ago. The fluid analysis confirms inflammatory nature of the effusion. I do expect that her pericardial drain will be possible to be removed today, but it will be ultimately to the judgment of Dr. Duncan. Otherwise I would continue colchicine, and she will also receive a brief prednisone pulse. Hopefully this will be sufficient to control the degree of inflammation. It is conceivable that Remicade it etiologically involved in the effusion, but I am not sure how to prove it or disprove it. The second issue is atrial flutter. She is now better rate controlled, but I am going to advance the dose of beta blockers to 50 twice a day. If it is not going to be sufficient, then we may need to advance the dose further. She is already receiving amiodarone currently 400 mg twice a day after she received intravenous dosing to start with. The rate is better controlled. I am somewhat reluctant to consider cardioversion because even though the onset is relatively recent she probably was in atrial flutter for more than 48 hours prior to starting anticoagulation. I think it will be safer to leave her on anticoagulation and then do elective cardioversion on outpatient basis. Once the catheters are removed, I think we can gradually transition her to oral anticoagulant. My typical choice would be Eliquis 5 mg twice a day, but I think it is not advisable to proceed in that direction until we firmly establish hemostasis post catheter being removed. Otherwise if her blood pressure starts to be elevated, the choices of antihypertensive medications are somewhat limited. The hyponatremia likely eliminates thiazide diuretics as a feasible option. The hyperkalemia also precludes the use of spironolactone and BO inhibitors even though it has improved, and it probably will be possible to introduce these medications in the near future. For today, hopefully increasing the dose of beta gisell plus I will give her oral furosemide will be sufficient. Will see once her volume is better controlled what the blood pressure will be. We may need to introduce additional medications accordingly. I am going to be off for the next three days, and Dr. Adame will assume coverage starting 5:00 p.m. this afternoon.
[2021-04-27] MEDS: MIRALAX *UNIT DOSE* 17GM PACKET PO SCH (09:33)
[2021-04-27] MEDS: COLCHICINE 0.6 MG TABLET PO SCH (09:40)
--- NOTE | 2021-04-27 11:05 | IPN ---
PROGRESS NOTE DATE: 04/27/2021 SUBJECTIVE: This is now the second postoperative day for Mrs. Ray after a pericardial window and tube pericardiostomy. She is feeling well and breathing well. She has had minimal output from both her right pleural and her pericardial tubes. Her pain is being well controlled. OBJECTIVE: Vital signs show a T-max of 98.5 with a heart rate that ranges between 72 and 100 in atrial fibrillation with a respiratory rate of 17-20 without the use of accessory muscles who is 99% saturated on 1 liter nasal cannula and has blood pressures ranging between 165/81 to 129/70. Her intake and output the past 24 hours has been recorded as 2328 in and 2503 out for a negativity of 180 mL. She has put 28 mL out the pericardial tube and 65 mL out the right pleural tube. She weighs 92 kg today. There is no air leak. On physical examination her lungs show decreased breath sounds in the left lower hemithorax with E:A egophony in the left lower hemithorax. Percussion note is dull at the base of the left side. The right side shows some scattered rhonchi with a full percussion note to the diaphragm. Cardiac exam is without murmurs, clicks, gallops, or rubs. In particular, I do not hear a pericardial friction rub. I cannot feel her PMI. S1, S2 are normal. Abdomen is soft, nontender. Bowel sounds are positive. There is no hepatomegaly. No CVA tenderness. Extremities show no pretibial edema, no calf tenderness, no differential swelling of the upper extremities. Skin is warm and dry and perfused without cyanosis or mottling including that of nailbeds and knees. Neck is supple. There is no jugular venous distention, no subcutaneous emphysema. Trachea is midline. Mouth shows the mucous membranes to be pink and moist. Lips and gums show no thrush. Eyes show the pupils to be equal and reactive. Extraocular movements are intact. Sclerae are nonicteric. Neuro shows II-XII intact with normal gross motor, normal gross sensation intact. Gait is not tested. Psychiatric shows her to be awake and alert and oriented times three with appropriate mood and affect and conversational. Her white count today is 14.4, unchanged from yesterday with a hemoglobin and hematocrit 12.1 and 37.2 slightly increased from 11.3 and 35.1 yesterday. Her platelet count is 474 and stable and differential shows 68% neutrophils, 19% lymphocytes, 9% monocytes. There were no immature forms or toxic granulations. Chemistries today show a sodium of 132 with a BUN and creatinine of 25 and 0.68. Glucose is 125 with a calcium of 7.4. Her chest x-ray today shows the right lung fully expanded to the chest wall. There is a left pleural effusion which has gotten bigger overnight. It can be clearly seen on the lateral film additionally. Cardiac silhouette looks to be normal and not globular. Chest tubes are in good place. ASSESSMENT: 1. Postoperative day number two status post a pericardial window and tube pericardiostomy. 2. Impending cardiac tamponade with the above procedure. 3. Atrial flutter. 4. Inflammatory pericardial effusion of unknown etiology, possibly Remicade related. 5. Hypertension. 6. Psoriatic arthritis on Remicade every month. 7. Possible history of cerebrovascular accident. 8. Diabetes. 9. Hypothyroidism. 10. Moderate ventricular dysfunction with an ejection fraction of 40%. PLAN AND DISCUSSION: I will remove her chest tubes today. I will continue her on anti-inflammatory therapy for her pericarditis. If we could tailor that just to include colchicine and NSAIDs and wean her from the Prednisone that would be helpful. Her known left pleural effusion which is fairly small the last few days is getting larger. I would suggest we continue to diurese her aggressively. If that does not work, we will have to have her drained and x-rayed with a pigtail catheter or at least a thoracentesis. It should be noted that the pericardium was negative for malignancy and showed chronic inflammation and the pleural fluid cytology was also negative.
--- NOTE | 2021-04-27 13:00 | IPNPDOC ---
Date Seen The patient was seen on 04/27/21. Progress Note SUBJECTIVE: This is hospital day 6 for this patient. Chest tubes were taken out today. The patient was alert and reported that she is feeling better today. Pt denies any chest pain, pressure, or heart palpitations at this time. Nursing staff reports no overnight events. Pt reports some tingling in her feet, but states that this comes and goes and is a chronic ongoing problem, which the patient attributes to ongoing neurological spinal problems being managed in the outpatient setting. OBJECTIVE PHYSICAL EXAMINATION: VITAL SIGNS: Please see below. GENERAL: Patient is in no acute distress, resting comfortably in bedside chair. HEENT: Normocephalic, atraumatic, no scleral icterus, oral mucosa moist CARDIOVASCULAR: Regularly irregular rhythm, normal rate in the 130s, no murmurs, rubs or gallops appreciated. RESPIRATORY: bibasilar crackles, egophony present, no M/R/G ABDOMINAL: Soft, nondistended, nontender, bowel sounds present EXTREMITIES:. Bilateral pedal edema still present, but has not progressed. No cyanosis or clubbing appreciated of the hands or feet. LE +5/5, pt able to wigg le toes without difficulty nor with associated worsening tingling sensation. NEUROLOGICAL: Good tone. PSYCHOLOGICAL: Pt was alert and cooperative on exam. LABORATORY DATA, IMAGING STUDIES, MICROBIOLOGY: Please see below. Echocardiogram: 04/22/2021 1. Study is of fair technical quality, underlying flutter with variable ventricular rate. 2. Normal LV size with moderate LVH, at least mild left ventricular systolic dysfunction, and no segmental wall motion abnormalities. 3. Aortic sclerosis with no stenosis and mild insufficiency. 4. Trace mitral and tricuspid insufficiency. 5. At least mildly elevated central venous pressure and [id number]-inryqhla pulmonary hypertension. 6. Moderate pericardial effusion without signs of cardiac compression. 7. Dilated aortic root (4.0 cm). Echocardiogram: 04/25/2021 No official reading on echocardiogram, but per Dr. Miller: "a 2-dimensional echocardiogram was obtained. It revealed approximately moderate size pericardial effusion but there were some early signs of cardiac compression, specifically there is a significant variation on both tricuspid and mitral in-flow velocities, there is also partial free right atrial wall collapse dependent on respiration. Additional findings, she now has significant LV systolic dysfunction. I estimate her EF around 20 to 25% and there are bilateral pleural effusions." Chest CT with /07/[address] resulted today showing: Moderate pericardial effusion measuring 1.5 cm in thickness. No evidence of pulmonary embolism. Small bilateral layering pleural effusions with overlying atelectasis versus infiltrates. Tiny opacities, apparently clustered in tree-in-bud distribution in the right upper lobe suggestive of endobronchial infection/inflammation. 5-6 mm right upper lung lobe nodule present. Dilated pulmonary trunk at 3.7 cm suggestive of pulmonary hypertension. Partially calcified plaque at the proximal left subclavian artery, resulting in 50-75% stenosis. Shotty likely reactive subcentimeter mediastinal lymph nodes seen in addition to a prominent right hilar lymph node at 1.8 X 1.5 centimeter. ASSESSMENT AND PLAN: This is a 80-year-old female with a past medical history significant for psoriatic arthritis being treated with Remicade infusions that started in December 2020. She presents for hospitalization due to progressive dyspnea, pericardial effusions, pleural effusions, and bilateral pedal edema. #Atrial flutter with rapid ventricular rate secondary to pericardial effusion vs heart failure exacerbation Patient presented with heart rate in the 150s and continued to have atrial flutter with rapid ventricular rate, despite Lopressor and amiodarone infusion in the ED. Dr. Miller was consulted, inpatient service team appreciates cardiology consul t. Per Dr. Miller's recommendations: -This is likely secondary to pericardial effusion (etiology of pericardial effusion, not yet known, possibly secondary to Remicade treatment, which patient started for psoriatic arthritis in December 2020.) -Pericardial effusion was drained by Dr. Duncan on 04/25/2021. -Patient received 0.[address] Miller on 04/25/2021 after pericardial window was done by Dr. Duncan -Continue metoprolol tartrate 25 mg every [address] Miller. -Continue amiodarone 400 mg twice a day -Continue Lasix 20 mg daily. -Pt had wheezing prior to the pericardial window and Xopenex 2 puffs as needed was added. Please do not consider albuterol at this time due to the patient's ongoing tachycardia. #Pericardial effusion status post pericardial window Etiology unknown at this time, considerations include history of psoriatic arthritis, Remicade administration, or neoplastic etiology. Patient has a history of psoriatic arthritis. Patient received Remicade beginning in December, which has a rare complication of pericardial effusions. The case was discussed over the phone with Excavator Operator, Dr. Sierra Moreno, who recommended prednisone and colchicine administration at this time. Colchicine administration will be 0.3 mg daily (decreased dose) since the patient is also receiving amiodarone (amiodarone predisposes patient to colchicine toxicity.) Pericardial window has been done. Despite patient's adverse neuropsychiatric affect is secondary to steroid administration, patient steroid administration cannot be lowered at this time because colchicine dosage cannot be increased because patient is also on amiodarone. -Patient is currently receiving ramelteon daily at bedtime and she is tolerating this well, and has improved sleep. Cardiothoracic surgery, Dr. Duncan has been consulted on the case. Medical team appreciates Dr. Duncan's input. IV cefazolin was started for this patient due to surgery, this is being managed by Dr. Duncan, today is the last day for administration. -Monitor hemostasis before transitioning Lovenox to Eliquis after chest tube removal. #Elevated troponin. Patient's troponin level of 0.04 is not significantly elevated from less than 0.02 on 04/22/2021, despite cardiac surgery on 04/25/2021, trending not considered at this time. If patient's chest pain presents again, consider trending troponin. #Tachycardia-induced Acute Systolic CHF in setting of h/o HFpEF -Echocardiogram on 04/25/2021, EF 20-25%, elevated JVD per Dr. Miller -Bilateral pleural effusions present on CT imaging 04/24/2021 -this is likely induced by prolonged tachycardia -inpatient team appreciates Dr. Miller's recommendations summarized under "#Atrial flutter with rapid ventricular rate secondary to pericardial effusion vs heart failure exacerbation" PT/OT evaluation and subsequent treatment has been ordered for patient due to d ecrease in ejection fraction. #Hyponatremia. Dr. Miller suspects SIADH secretion in the setting of chest pressure resulting in hyponatremia. Patient has a history of heart failure, therefore normal saline was not started since sodium level was 121 and threshold in heart failure is treatment begins. If sodium level is less than 120, consider gentle hydration (gentle because patient has pericardial effusion and heart failure). Patient's sodium level is 132 today after receiving 1 L of normal saline on 04/25/[address] Duncan. Paraneoplastic etiology cannot be ruled out at this time. #Abnormal chest CT results Follow-up suggested for shotty likely reactive mediastinal lymph nodes prominent in the right hilar area. Outpatient follow-up CT chest recommended in 12 months due to finding of 5-6 mm nodule upper lung lobe. #Hypertensive heart failure Hold ASA at this time, pt had pericardial window done yesterday. #Hypertension Lisinopril, home medication has been held by Dr. Miller. Dr. Miller's management of patient's hypertension is appreciated by inpatient service team. #Lpd-umgmgjg-svelprynh diabetes mellitus type 2. Continue sliding scale insulin. Hold home medication of metformin at this time. Hypoglycemic protocol in place. 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 Continue home medication Gabapentin #History of dizziness. Continue home medication, Meclizine 12.5 mg DVT prophylaxis: Patient is receiving Lovenox 80 mg twice a day subcutaneous. Consider changing to Eliquis tomorrow. DISPOSITION: Discharge is not likely within the next couple days as the pt just had pericardial window placement today with chest tube placement today. [facility]&O Vital Signs Date Time Temp Pulse Resp B/P (MAP) Pulse Ox O2 Delivery O2 Flow Rate FiO2 04/27/21 09:30 140 167/76 04/27/21 05:33 99 Nasal Cannula 1.0 04/27/21 04:00 98.5 20 I&O- Last 24 Hours up to 6 AM 04/27/21 06:00 Intake Total 1490 ml Output Total 2400 ml Balance -910 ml Laboratory Data 24H LABS Laboratory Tests 2 04/26/21 11:37: Bedside Glucose (Misc Panel) 191H 04/26/21 17:17: Bedside Glucose (Misc Panel) 204H 04/26/21 20:28: Bedside Glucose (Misc Panel) 172H 04/27/21 04:11: Immature Granulocyte % (Auto) 2.1, Neutrophils (%) (Auto) 68.0H, Lymphocytes (%) (Auto) 19.8L, Monocytes (%) (Auto) 9.8H, Eosinophils (%) (Auto) 0.1, Basophils (%) (Auto) 0.2, Neutrophils # (Auto) 9.8H, Lymphocytes # (Auto) 2.9, Monocytes # (Auto) 1.4H, Eosinophils # (Auto) 0.0, Basophils # (Auto) 0.0, Nucleated Red Blood Cells % (auto) 0.0, Anion Gap 3L, Glomerular Filtration Rate > 60.0, Calcium Level 7.4L 04/27/21 09:05: Bedside Glucose (Misc Panel) 118H CBC/BMP Laboratory Tests 04/27/21 04:11 Microbiology Microbiology 04/25/21 Acid Fast Stain, Received Pending 04/25/21 Mycobacterial Culture, Received Pending 04/25/21 Fungal Smear, Received Pending 04/25/21 Fungal Culture, Received Pending 04/25/21 Gram Stain - Final, Complete 04/25/21 Body Fluid Culture - Final, Complete 04/25/21 Anaerobic Culture - Final, Complete 04/25/21 Acid Fast Stain, Received Pending 04/25/21 Mycobacterial Culture, Received Pending 04/25/21 Fungal Smear, Received Pending 04/25/21 Fungal Culture, Received Pending 04/25/21 Gram Stain - Final, Complete 04/25/21 Body Fluid Culture - Final, Complete 04/25/21 Anaerobic Culture - Final, Complete 04/25/21 Acid Fast Stain, Received Pending 04/25/21 Mycobacterial Culture, Received Pending 04/25/21 Fungal Smear, Received Pending 04/25/21 Fungal Culture, Received Pending 04/25/21 Gram Stain - Final, Complete 04/25/21 Body Fluid Culture - Final, Complete 04/25/21 Anaerobic Culture - Final, Complete 04/22/21 Respiratory Virus Panel (PCR) ([facility]) - Final, Complete GME ATTESTATION GME ATTESTATION My faculty preceptor for this patient encounter was physically present during the encounter and was fully available. All aspects of the patient interview, examination, medical decision making process, and medical care plan development were reviewed and approved by the faculty preceptor. The faculty preceptor is aware and concurs with the plan as stated in the body of this note and will attest to such by his/her cosignature. ATTENDING NOTE Attending Attestation: Patient independently seen and examined. I have discussed in detail with the resident the findings and plan of treatment as documented by the resident. I agree with their findings and treatment plan. I will continue to follow the patient during this hospital stay. Cheko Castellanos DO Apr 27, 2021 13:00 STEPHEN BLANK MD Apr 28, 2021 06:32
--- NOTE | 2021-04-27 14:25 | ECHO ---
ECHOCARDIOGRAM DATE OF PROCEDURE: 04/22/2021 Age: 80 Gender: Female Height: 170 cm Weight: 86 kg REFERRING PHYSICIAN: Dr. Suleman Duncan. INDICATION: Pericardial effusion. MEASUREMENTS: IVS 1.3 cm LV 3.6 cm LVPW 1.3 cm Aorta 4.0 cm IVC 2.0 cm FINDINGS: This is a study focused on possibility of pericardial tamponade as patient's condition has decompensated. There is underlying atrial flutter with typically 2:1 conduction and ventricular rate around 140 beats per minute. Left ventricle is normal size. There is severe global hypokinesis with overall estimated EF around 25%. This is in the setting of a very rapid heart rate. Right ventricle appears to have normal size but is also hypokinetic. There is biatrial enlargement. Aortic valve is sclerotic, but mobility is preserved. Mitral and tricuspid valves appear normal. Pulmonic valve was not seen. There is approximately moderate size circumferential pericardial effusion. There are some early signs of cardiac collapse with partial collapse of the right atrial free wall and very significant variation of both tricuspid (varying from 38 to 68 cm/s and mitral variation from 57 to 97 cm/s) inflow velocities. Inferior vena cava is dilated, and there is no appreciable collapse with inspiration. There are bilateral pleural effusions. Doppler interrogation reveals no significant aortic stenosis and trace insufficiency. There is mild mitral and trace tricuspid insufficiency. Evaluation of diastolic function is inconclusive due to underlying atrial flutter and wide QRS complex. CONCLUSIONS: 1. Study is of acceptable technical quality. Underlying atrial flutter with wide QRS complex and ventricular rate around 140 BPM. 2. Normal LV size with mild LVH and severe global hypokinesis with estimated EF around 25%. 3. Hypokinetic right ventricle. 4. No hemodynamically significant valvular disease. 5. Approximately moderate pericardial effusion with early signs of cardiac compression. 6. Very high central venous pressure. 7. Bilateral pleural effusions. 8. Compared to the study performed three days ago, there are now early signs of cardiac compression, and the ejection fraction appears worse. Results of the study were discussed with Dr. Duncan. Preparations were made to take patient semi-emergently for pericardial window placement. Edited: [facility] 04/28/2021 08:38 MTDD
[2021-04-27] MEDS: METOPROLOL TART 50 MG TAB PO SCH (20:17)
[2021-04-27] MEDS: GABAPENTIN 300 MG CAP PO SCH (20:26)
[2021-04-27] MEDS: TAFLUPROST OS SCH (21:00)
[2021-04-28] VITALS: BP 118/64
[2021-04-28 04:00] VITALS: BP 143/63
[2021-04-28 04:40] LABS: BASO % 0.3 % (0.0-1.0); EOS # 0.1 10^3/uL (0.0-0.5); EOS % 0.8 % (0.0-3.0); HEMATOCRIT 38.2 % (36.0-47.0); HEMOGLOBIN 12.3 g/dl (12.0-15.5); LYMPH # 3.8 10^3/uL (1.5-5.0); LYMPH % 31.8 % (24.0-44.0); MEAN CORPUSCULAR HEMOGLOBIN 29.2 pg (27.0-33.0); MEAN CORPUSCULAR HGB CONC 32.2 g/dl (32.0-36.5); MEAN CORPUSCULAR VOLUME 90.7 fl (80.0-96.0); MONO # 1.2 10^3/uL (0.0-0.8); MONO % 10.3 % (2.0-8.0); NEUTROPHILS # 6.5 10^3/uL (1.5-8.5); NEUTROPHILS % 53.8 % (36.0-66.0); PLATELET COUNT, AUTOMATED 493 10^3/uL (150-450); RED BLOOD COUNT 4.21 10^6/uL (4.00-5.40)
[2021-04-28 05:00] LABS: BLOOD UREA NITROGEN 22 MG/DL (7-18); CALCIUM LEVEL 7.9 MG/DL (8.8-10.2); CARBON DIOXIDE LEVEL 30 MEQ/L (21-32); CHLORIDE LEVEL 99 MEQ/L (98-107); CREATININE FOR GFR 0.62 MG/DL (0.55-1.30); GLOMERULAR FILTRATION RATE > 60.0 (>39); GLUCOSE, FASTING 110 MG/DL (70-100); POTASSIUM SERUM 5.2 MEQ/L (3.5-5.1); SODIUM LEVEL 134 MEQ/L (136-145)
[2021-04-28] MEDS: LEVOTHYROXINE 50MCG TABLET (0.05MG) PO SCH (05:30)
[2021-04-28] MEDS: KETOROLAC 30 MG/ML 1ML VIAL IV SCH ×4 (05:30→22:12)
[2021-04-28 08:00] VITALS: BP 128/78
[2021-04-28] MEDS: COMBIGAN OS SCH ×2 (08:32→21:24)
[2021-04-28] MEDS: FUROSEMIDE 20 MG TAB PO SCH (08:33)
[2021-04-28] MEDS: DOCUSATE SODIUM 100MG CAPSULE PO SCH ×2 (08:33→21:23)
[2021-04-28] MEDS: ENOXAPARIN 80MG/0.8ML SYRINGE (J1650 PER 10MG) SC SCH ×2 (08:33→21:24)
[2021-04-28] MEDS: ATORVASTATIN 10 MG TAB PO SCH (08:33)
[2021-04-28] MEDS: AMIODARONE 200 MG TAB (PACERONE) PO SCH ×2 (08:33→21:23)
[2021-04-28] MEDS: PANTOPRAZOLE 40MG TAB (PROTONIX) PO SCH (08:34)
[2021-04-28] MEDS: METOPROLOL TART 50 MG TAB PO SCH ×3 (08:34→21:23)
[2021-04-28] MEDS: COLCHICINE 0.6 MG TABLET PO SCH (08:34)
[2021-04-28] MEDS: MIRALAX *UNIT DOSE* 17GM PACKET PO SCH (08:39)
[2021-04-28] MEDS: HumaLOG INSULIN (NovoLOG) PER UNIT SC SCH ×4 (08:58→21:00)
--- NOTE | 2021-04-28 09:07 | REP ---
INDICATION: pericardial efusion COMPARISON: 04/27/2021 TECHNIQUE: PA and lateral. FINDINGS: Right chest tube has been removed. Moderate left and small right pleural effusions are identified. Underlying elements of bibasilar atelectasis/consolidation cannot be excluded. No obvious pneumothorax. IMPRESSION: Small to moderate pleural effusions (left greater than right). <Electronically signed by Vito Haque > 04/28/21 0903
--- NOTE | 2021-04-28 10:11 | IPNPDOC ---
Date Seen The patient was seen on 04/28/21. Progress Note SUBJECTIVE: This is hospital day 7 for this patient. Chest tubes were taken out yesterday, 04/27/2021. The patient reports that she is feeling better today and was asking about the discharge plan. She also expressed that she would like Dr. Miller to be her outpatient relationship counselor. Pt denies any chest pain, pressure, or heart palpitations at this time. Nursing staff reports no overnight events. Pt reports some tingling in her feet, but states that this comes and goes and is a chronic ongoing problem, which the patient attributes to ongoing neurological spinal problems being managed in the outpatient setting. Patient reports that she is having good sleep, however, wakes up around 1 AM and finds it difficult to fall back asleep. She did not receive steroids yesterday. OBJECTIVE PHYSICAL EXAMINATION: VITAL SIGNS: Please see below. GENERAL: Patient is in no acute distress, resting comfortably in bedside chair. HEENT: Normocephalic, atraumatic, no scleral icterus, oral mucosa moist CARDIOVASCULAR: Regularly irregular rhythm, normal rate in the 130s, no murmurs, rubs or gallops appreciated. RESPIRATORY: bibasilar crackles, no M/R/G ABDOMINAL: Soft, nondistended, nontender, bowel sounds present EXTREMITIES: Bilateral pedal edema still present, but has not progressed. No cyanosis or clubbing appreciated of the hands or feet. LE +5/5, pt able to wiggle toes without difficulty nor with associated worsening tingling sensation. NEUROLOGICAL: Good tone. PSYCHOLOGICAL: Pt was alert and cooperative on exam. LABORATORY DATA, IMAGING STUDIES, MICROBIOLOGY: Please see below. Echocardiogram: 04/22/2021 1. Study is of fair technical quality, underlying flutter with variable ventricular rate. 2. Normal LV size with moderate LVH, at least mild left ventricular systolic dysfunction, and no segmental wall motion abnormalities. 3. Aortic sclerosis with no stenosis and mild insufficiency. 4. Trace mitral and tricuspid insufficiency. 5. At least mildly elevated central venous pressure and [id number] pulmonary hypertension. 6. Moderate pericardial effusion without signs of cardiac compression. 7. Dilated aortic root (4.0 cm). Echocardiogram: 04/25/2021 No official reading on echocardiogram, but per Dr. Miller: "a 2-dimensional echocardiogram was obtained. It revealed approximately moderate size pericardial effusion but there were some early signs of cardiac compression, specifically there is a significant variation on both tricuspid and mitral in-flow velocities, there is also partial free right atrial wall collapse dependent on respiration. Additional findings, she now has significant LV systolic dysfunction. I estimate her EF around 20 to 25% and there are bilateral pleural effusions." Chest CT with [id number]/[address] resulted today showing: Moderate pericardial effusion measuring 1.5 cm in thickness. No evidence of pulmonary embolism. Small bilateral layering pleural effusions with overlying atelectasis versus infiltrates. Tiny opacities, apparently clustered in tree-in-bud distribution in the right upper lobe suggestive of endobronchial infection/inflammation. 5-6 mm right upper lung lobe nodule present. Dilated pulmonary trunk at 3.7 cm suggestive of pulmonary hypertension. Partially calcified plaque at the proximal left subclavian artery, resulting in 50-75% stenosis. Shotty likely reactive subcentimeter mediastinal lymph nodes seen in addition to a prominent right hilar lymph node at 1.8 X 1.5 centimeter. ASSESSMENT AND PLAN: This is a 80-year-old female with a past medical history significant for psoriatic arthritis being treated with Remicade infusions that started in December 2020. She presents for hospitalization due to progressive dyspnea, pericardial effusions, pleural effusions, and bilateral pedal edema. #Atrial flutter with rapid ventricular rate secondary to pericardial effusion vs heart failure exacerbation Patient presented with heart rate in the 150s and continued to have atrial fl utter with rapid ventricular rate, despite Lopressor and amiodarone infusion in the ED. Dr. Miller was consulted, inpatient service team appreciates cardiology consult. Per Dr. Miller's recommendations: -This is likely secondary to pericardial effusion (etiology of pericardial effusion, not yet known, possibly secondary to Remicade treatment, which patient started for psoriatic arthritis in December 2020.) -Pericardial effusion was drained by Dr. Duncan on 04/25/2021. -Patient received 0.[address] Miller on 04/25/2021 after pericardial window was done by Dr. Duncan -Continue metoprolol tartrate 50 mg twice a day per Dr. Miller. -Continue amiodarone 400 mg twice a day -Continue Lasix 20 mg daily. -Pt had wheezing prior to the pericardial window and Xopenex 2 puffs as needed was added. Please do not consider albuterol at this time due to the patient's ongoing tachycardia. #Pericardial effusion status post pericardial window Etiology unknown at this time, considerations include history of psoriatic arthritis, Remicade administration, or neoplastic etiology. Patient has a history of psoriatic arthritis. Patient received Remicade beginning in December, which has a rare complication of pericardial effusions. The case was discussed over the phone with [employer], Dr. Sierra Moreno, who recommended prednisone and colchicine administration upon patient's a dmission. Colchicine administration will be 0.3 mg daily (decreased dose) since the patient is also receiving amiodarone (amiodarone predisposes patient to colchicine toxicity.) Pericardial window has been done. After chest tubes had been taken out Dr. Duncan, with cardiothoracic surgery, recommended that the patient continue on colchicine and NSAIDs and be weaned off prednisone. Patient received 3 doses of 40 mg from April 23 through April 26. Patient will be weaned off steroids. Due to pleural effusions and pericardial effusions, consider 40 mg prednisone continued at this time to prevent rebound pericardial effusion. Pt will likely need a longer taper due to her pericardial effusion etiology likely being inflammatory. -Patient is currently receiving ramelteon daily at bedtime and she is tolerating this well, and has improved sleep. -Monitor hemostasis before transitioning Lovenox to Eliquis after chest tube removal. #Elevated troponin. Patient's troponin level of 0.04 (04/26/2021) is not significantly elevated from less than 0.02 on 04/22/2021, despite cardiac surgery on 04/25/2021, trending not considered at this time. If patient's chest pain presents again, consider trending troponin. #Tachycardia-induced Acute Systolic CHF in setting of h/o HFpEF -Echocardiogram on 04/25/2021, EF 20-25%, elevated JVD per Dr. Miller -this is likely induced by prolonged tachycardia -Bilateral pleural effusions present on CT imaging 04/24/2021 -inpatient team appreciates Dr. Miller's recommendations summarized under "#Atrial flutter with rapid ventricular rate secondary to pericardial effusion vs heart failure exacerbation" PT/OT evaluation and subsequent treatment has been ordered for patient due to decrease in ejection fraction. #Hyponatremia, resolving. Dr. Miller suspects SIADH secretion in the setting of chest pressure resulting in hyponatremia. Patient has a history of heart failure, therefore normal saline was not started since sodium level was 121 and threshold in heart failure is treatment begins. If sodium level is less than 120, consider gentle hydration (gentle because patient has pericardial effusion and heart failure). Patient's sodium level is 134 today after receiving 1 L of normal saline on 04/25/[address] Duncan. Paraneoplastic etiology cannot be ruled out at this time. #Abnormal chest CT results Follow-up suggested for shotty likely reactive mediastinal lymph nodes prominent in the right hilar area. Outpatient follow-up CT chest recommended in 12 months due to finding of 5-6 mm nodule upper lung lobe. #Hypertensive heart failure Hold ASA at this time, pt had pericardial window done 04/26/2021. #Hypertension Lisinopril, home medication has been held by Dr. Miller, due to ongoing hyperkalemia. Dr. Miller's management of patient's hypertension is appreciated by inpatient service team. #Qhl-[id number]-[id number] diabetes mellitus type 2. Continue sliding scale insulin. Hold home medication of metformin at this time. Hypoglycemic protocol in place. 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 Continue home medication Gabapentin #History of dizziness. Continue home medication, Meclizine 12.5 mg DVT prophylaxis: Patient is receiving Lovenox 80 mg twice a day subcutaneous. Consider changing to Eliquis when established that patient has good hemostasis, per Dr. Miller's recommendations. DISPOSITION: Discharge is not likely within the next couple days as the pt continues to have elevated heart rate and still needs to be bridged to oral anticoagulants. VS, I&O, 24H, Fishbone Vital Signs/I&O Vital Signs Date Time Temp Pulse Resp B/P (MAP) Pulse Ox O2 Delivery O2 Flow Rate FiO2 04/28/21 08:34 144 128/78 04/28/21 08:00 97.7 18 94 Room Air 04/28/21 08:00 1.0 I&O- Last 24 Hours up to 6 AM 04/28/21 06:00 Intake Total 1680 ml Output Total 2935 ml Balance -1255 ml Laboratory Data 24H LABS Laboratory Tests 2 04/27/21 12:40: Bedside Glucose (Misc Panel) 130H 04/27/21 18:08: Bedside Glucose (Misc Panel) 111H 04/27/21 20:03: Bedside Glucose (Misc Panel) 188H 04/28/21 04:10: Immature Granulocyte % (Auto) 3.0, Neutrophils (%) (Auto) 53.8, Lymphocytes (%) (Auto) 31.8, Monocytes (%) (Auto) 10.3H, Eosinophils (%) (Auto) 0.8, Basophils (%) (Auto) 0.3, Neutrophils # (Auto) 6.5, Lymphocytes # (Auto) 3.8, Monocytes # (Auto) 1.2H, Eosinophils # (Auto) 0.1, Basophils # (Auto) 0.0, Nucleated Red Blood Cells % (auto) 0.0, Anion Gap 5L, Glomerular Filtration Rate > 60.0, Calcium Level 7.9L 04/28/21 08:43: Bedside Glucose (Misc Panel) 150H CBC/BMP Laboratory Tests 04/28/21 04:10 Microbiology Microbiology 04/25/21 Acid Fast Stain, Received Pending 04/25/21 Mycobacterial Culture, Received Pending 04/25/21 Fungal Smear, Received Pending 04/25/21 Fungal Culture, Received Pending 04/25/21 Gram Stain - Final, Complete 04/25/21 Body Fluid Culture - Final, Complete 04/25/21 Anaerobic Culture - Final, Complete 04/25/21 Acid Fast Stain, Received Pending 04/25/21 Mycobacterial Culture, Received Pending 04/25/21 Fungal Smear, Received Pending 04/25/21 Fungal Culture, Received Pending 04/25/21 Gram Stain - Final, Complete 04/25/21 Body Fluid Culture - Final, Complete 04/25/21 Anaerobic Culture - Final, Complete 04/25/21 Acid Fast Stain, Received Pending 04/25/21 Mycobacterial Culture, Received Pending 04/25/21 Fungal Smear, Received Pending 04/25/21 Fungal Culture, Received Pending 04/25/21 Gram Stain - Final, Complete 04/25/21 Body Fluid Culture - Final, Complete 04/25/21 Anaerobic Culture - Final, Complete 04/22/21 Respiratory Virus Panel (PCR) ([facility]) - Final, Complete GME ATTESTATION GME ATTESTATION My faculty preceptor for this patient encounter was physically present during the encounter and was fully available. All aspects of the patient interview, examination, medical decision making process, and medical care plan development were reviewed and approved by the faculty preceptor. The faculty preceptor is aware and concurs with the plan as stated in the body of this note and will attest to such by his/her cosignature. ATTENDING NOTE Attending Attestation: Patient independently seen and examined. I have discussed in detail with the resident the findings and plan of treatment as documented by the resident. I agree with their findings and treatment plan. I will continue to follow the patient during this hospital stay. Cheko Castellanos DO Apr 28, 2021 10:11 STEPHEN BLANK MD Apr 29, 2021 06:28
[2021-04-28] MEDS: predniSONE 20 MG TAB PO SCH (11:25)
[2021-04-28 12:00] VITALS: BP 148/78
--- NOTE | 2021-04-28 12:58 | IPN ---
PROGRESS NOTE DATE: 04/28/2021 This is now the third postoperative day for Mrs. Ray after her pericardial window. She is breathing well and is comfortable. She is on room air. Pain is being well controlled. Her vital signs show a maximum temperature of 98.1 with a heart rate that ranges between 70-144 in atrial fibrillation with arrhythmia of 16-18 without the use of accessory muscles, who is 94%-98% saturated on 1 liter nasal cannula. At the time of examination, just now she was on room air. Her intake and output for the past 24 hours have been recorded as 1550 and 1310 out, for a positivity of 240 mL. She weighs 84.8 kg today compared to 92 kg yesterday. I suspect the 92 kg is spurious. She weighed 86 mg on April 24. Her intake and output do not match that drastic weight loss. PHYSICAL EXAMINATION: She has decreased breath sounds in the left hemithorax with a dull percussion note in the left hemithorax at the base. Otherwise, I hear some scattered rhonchi without wheezes. Cardiac exam shows an irregular rate and rhythm. I do not hear a pericardial friction rub. S1 and S2 are normal. Abdomen is soft and nontender. Bowel sounds are positive. There is no hepatomegaly. No costovertebral angle (CVA) tenderness. Extremities show no pretibial edema, no calf tenderness, no differential swelling of the upper extremities. Skin is warm, dry, and perfused without cyanosis or mottling, including that of the nailbeds and knees. Neck is supple. There is no jugular venous distention. No subcutaneous emphysema. Trachea is midline. Mouth shows the mucous membranes to be pink and moist. Lips and commissures without lesions. There is no thrush. Eyes show her pupils to be equal and reactive. Extraocular motion intact. Sclerae anicteric. Neurologic shows II-XII intact. Normal gross motor, gross sensation intact. Gait is not tested. Psychiatric shows her to be awake, alert, and oriented times three with appropriate mood and affect and conversational. Her white count today is 12.0, down from 14.4 yesterday. Hemoglobin and hematocrit are 12.3 and 38.2, respectively, with a platelet count of 493 and stable. Differential shows 73% neutrophils, 31% lymphocytes, 10% monocytes. There are no immature forms or toxic granulations. Her electrolytes show sodium 134 with a potassium 5.2. BUN and creatinine are 22 and 0.62, respectively. Glucose is 110 with a calcium 7.9. Her chest x-ray today shows continuation of the left pleural effusion. It looks worse today than it did yesterday on the AP film; however, on the lateral film it looks a little bit better. IMPRESSION: 1. Postoperative day #3 status post pericardial window. 2. Impending cardiac tamponade with the above procedure. 3. Pericarditis, inflammatory, still unknown origin, perhaps secondary to Remicade, although rare. 4. Atrial fibrillation/atrial flutter. 5. Hypertension. 6. Psoriatic arthritis, on Remicade every month. 7. Possible history of cerebrovascular accident (CVA). 8. Diabetes. 9. Hypothyroidism. 10. Ventricular dysfunction with an ejection fraction of 40% at baseline. Her wound is healing well, and she is clinically feeling better. I am still rather concerned about the pleural effusion. She is only getting 20 mg of Lasix as diuretic therapy. I recommend that that be increased and more aggressive diuresis be undertaken. I am not particularly keen on placing a chest tube in Mrs. Ray. I can almost guarantee that radiology would not drain her, because she is on full-dose Lovenox. It looks like this ought to resolve with increased medical diuresis. She is continued on anti-inflammatories, including prednisone. As her surgical problems are resolved, I will withdraw from the case, to see her in followup as an outpatient a week after discharge. Right now her pleural effusion is not symptomatic.
[2021-04-28 15:04] LABS: BLOOD UREA NITROGEN 28 MG/DL (7-18); CALCIUM LEVEL 7.6 MG/DL (8.8-10.2); CARBON DIOXIDE LEVEL 30 MEQ/L (21-32); CHLORIDE LEVEL 96 MEQ/L (98-107); CREATININE FOR GFR 0.81 MG/DL (0.55-1.30); GLOMERULAR FILTRATION RATE > 60.0 (>39); GLUCOSE, FASTING 201 MG/DL (70-100); POTASSIUM SERUM 5.8 MEQ/L (3.5-5.1); SODIUM LEVEL 129 MEQ/L (136-145)
[2021-04-28 16:00] VITALS: BP 159/100
[2021-04-28] MEDS: DIGOXIN INJ 0.5 MG/2 ML AMP (J1160) IV SCH ×2 (16:16→21:23)
[2021-04-28] MEDS ORDERED: SOD POLYSTYRENE SULFONATE SUSP 15 GM/60 ML UD PO ONE (16:30)
[2021-04-28 16:36] LABS: NT-PRO BNP 4237 PG/ML (<450)
[2021-04-28] MEDS: FUROSEMIDE 20MG/2ML VIAL (J1940) IV SCH (17:37)
[2021-04-28 20:00] VITALS: BP 150/85
[2021-04-28 20:18] LABS: BLOOD UREA NITROGEN 27 MG/DL (7-18); CALCIUM LEVEL 7.9 MG/DL (8.8-10.2); CARBON DIOXIDE LEVEL 29 MEQ/L (21-32); CHLORIDE LEVEL 98 MEQ/L (98-107); CREATININE FOR GFR 0.86 MG/DL (0.55-1.30); DIGOXIN LEVEL 1.6 NG/ML (0.5-2.0); GLOMERULAR FILTRATION RATE > 60.0 (>39); GLUCOSE, FASTING 228 MG/DL (70-100); POTASSIUM SERUM 5.1 MEQ/L (3.5-5.1); SODIUM LEVEL 132 MEQ/L (136-145)
[2021-04-28] MEDS: GABAPENTIN 300 MG CAP PO SCH (21:00)
[2021-04-28] MEDS: TAFLUPROST OS SCH (21:24)
[2021-04-29] MEDS: RAMELTEON 8 MG TAB (ROZEREM) PO PRN (00:10)
[2021-04-29 04:00] VITALS: BP 162/75
[2021-04-29] MEDS: TAFLUPROST OS SCH (04:00)
[2021-04-29] MEDS: DIGOXIN INJ 0.5 MG/2 ML AMP (J1160) IV SCH (04:33)
[2021-04-29] MEDS: KETOROLAC 30 MG/ML 1ML VIAL IV SCH ×4 (04:35→22:11)
[2021-04-29 04:55] LABS: HEMOGLOBIN 11.9 g/dl (12.0-15.5); MEAN CORPUSCULAR HEMOGLOBIN 29.2 pg (27.0-33.0); MEAN CORPUSCULAR HGB CONC 32.2 g/dl (32.0-36.5); MEAN CORPUSCULAR VOLUME 90.7 fl (80.0-96.0); PLATELET COUNT, AUTOMATED 508 10^3/uL (150-450); RED BLOOD COUNT 4.08 10^6/uL (4.00-5.40); WHITE BLOOD COUNT 13.6 10^3/uL (4.0-10.0)
[2021-04-29 05:31] LABS: BLOOD UREA NITROGEN 26 MG/DL (7-18); CALCIUM LEVEL 7.6 MG/DL (8.8-10.2); CARBON DIOXIDE LEVEL 34 MEQ/L (21-32); CHLORIDE LEVEL 99 MEQ/L (98-107); CREATININE FOR GFR 0.77 MG/DL (0.55-1.30); DIGOXIN LEVEL 2.2 NG/ML (0.5-2.0); GLOMERULAR FILTRATION RATE > 60.0 (>39); GLUCOSE, FASTING 139 MG/DL (70-100); POTASSIUM SERUM 5.1 MEQ/L (3.5-5.1); SODIUM LEVEL 136 MEQ/L (136-145)
[2021-04-29] MEDS: LEVOTHYROXINE 50MCG TABLET (0.05MG) PO SCH (05:44)
[2021-04-29 08:03] VITALS: BP 172/77
[2021-04-29] MEDS: MIRALAX *UNIT DOSE* 17GM PACKET PO SCH (08:59)
[2021-04-29] MEDS: DOCUSATE SODIUM 100MG CAPSULE PO SCH ×2 (08:59→21:00)
[2021-04-29] MEDS: predniSONE 20 MG TAB PO SCH (09:10)
[2021-04-29] MEDS: COLCHICINE 0.6 MG TABLET PO SCH (09:10)
[2021-04-29] MEDS: PANTOPRAZOLE 40MG TAB (PROTONIX) PO SCH (09:10)
[2021-04-29] MEDS: ATORVASTATIN 10 MG TAB PO SCH (09:10)
[2021-04-29] MEDS: METOPROLOL TART 50 MG TAB PO SCH (09:11)
[2021-04-29] MEDS: ENOXAPARIN 80MG/0.8ML SYRINGE (J1650 PER 10MG) SC SCH ×2 (09:11→21:02)
[2021-04-29] MEDS: FUROSEMIDE 20MG/2ML VIAL (J1940) IV SCH ×2 (09:12→17:08)
[2021-04-29] MEDS: COMBIGAN OS SCH ×2 (09:12→21:03)
--- NOTE | 2021-04-29 09:12 | REP ---
INDICATION: pericardial efusion. COMPARISON: Comparison radiograph April 28, 2021. TECHNIQUE: Two views.. FINDINGS: EKG monitoring electrodes are seen. There is left pleural effusion blunting the lateral and posterior pleural angles on the left unchanged. Borderline heart size is observed also unchanged. There is slight blunting of the right lateral pleural angle and the right posterior pleural angle is felt to be blunted consistent with small amount of right pleural fluid. No definite infiltrate. Aorta is calcific and tortuous. No acute bony abnormality is seen. IMPRESSION: Small bilateral effusions, left larger than right. Borderline heart size.. <Electronically signed by Heri Dobson > 04/29/21 [id number]
[2021-04-29] MEDS: AMIODARONE 200 MG TAB (PACERONE) PO SCH ×2 (09:14→21:00)
[2021-04-29] MEDS: HumaLOG INSULIN (NovoLOG) PER UNIT SC SCH ×4 (09:15→20:57)
[2021-04-29] MEDS ORDERED: LIDOCAINE 1% MDV 20ML VIAL As Ordered ONE (10:17)
[2021-04-29 11:42] VITALS: BP 137/70
--- NOTE | 2021-04-29 12:38 | IPN ---
PROGRESS NOTE DATE: 04/29/2021 I was called this morning by the medical service for bleeding from the left chest tube site. Chest tubes were removed yesterday. Upon inspection of the site, it looks as though she had a skin bleeder in the medial corner of the wound. She is fully anticoagulated for atrial fibrillation. I therefore placed two sutures to close the wound and to stop the bleeding. PROCEDURE: After satisfactory local anesthesia obtained with 1% lidocaine, patient was prepped and draped in the usual sterile fashion. Two 2-0 silk sutures were placed across the wound and tied so the bleeding ceased. Patient tolerated the procedure well, and the wound was dressed.
[2021-04-29] MEDS ORDERED: METOPROLOL TART 50 MG TAB PO ONE (13:00)
[2021-04-29 16:16] VITALS: BP 147/71
[2021-04-29 16:55] VITALS: BP 146/70
--- NOTE | 2021-04-29 17:35 | IPNPDOC ---
Date Seen The patient was seen on 04/29/21. Progress Note SUBJECTIVE: This is hospital day 8 for this patient. Chest tubes were taken out on 04/27/2021. The patient reports that she is feeling better today. Pt required digoxin doses and received 3 doses overnight. Pt reports some tingling in her feet, but states that this comes and goes and is a chronic ongoing problem, which the patient attributes to ongoing neurological spinal problems being managed in the outpatient setting. Patient reports that she is having good sleep, however, wakes up around 1 AM and finds it difficult to fall back asleep. She did not receive steroids yesterday. OBJECTIVE PHYSICAL EXAMINATION: VITAL SIGNS: Please see below. GENERAL: Patient is in no acute distress, resting comfortably in bedside chair. HEENT: Normocephalic, atraumatic, no scleral icterus, oral mucosa moist CARDIOVASCULAR: Regularly irregular rhythm, normal rate in the 130s, no murmurs, rubs or gallops appreciated. There is significant oozing of blood from the chest tube site, abdominal pad is completely saturated, and changed by nurse. RESPIRATORY: bibasilar crackles, no W/R/R ABDOMINAL: Soft, nondistended, nontender, bowel sounds present. EXTREMITIES: Bilateral pedal edema still present, but has not progressed. No cyanosis or clubbing appreciated of the hands or feet. LE +5/5, pt able to wi ggle toes without difficulty nor with associated worsening tingling sensation. NEUROLOGICAL: Good tone. PSYCHOLOGICAL: Pt was alert and cooperative on exam. LABORATORY DATA, IMAGING STUDIES, MICROBIOLOGY: Please see below. Echocardiogram: 04/22/2021 1. Study is of fair technical quality, underlying flutter with variable ventricular rate. 2. Normal LV size with moderate LVH, at least mild left ventricular systolic dysfunction, and no segmental wall motion abnormalities. 3. Aortic sclerosis with no stenosis and mild insufficiency. 4. Trace mitral and tricuspid insufficiency. 5. At least mildly elevated central venous pressure and [id number] pulmonary hypertension. 6. Moderate pericardial effusion without signs of cardiac compression. 7. Dilated aortic root (4.0 cm). Echocardiogram: 04/25/2021 No official reading on echocardiogram, but per Dr. Miller: "a 2-dimensional echocardiogram was obtained. It revealed approximately moderate size pericardial effusion but there were some early signs of cardiac compression, specifically there is a significant variation on both tricuspid and mitral in-flow velocities, there is also partial free right atrial wall collapse dependent on respiration. Additional findings, she now has significant LV systolic dysfunction. I estimate her EF around 20 to 25% and there are bilateral pleural effusions." Chest CT with [id number]/[address] resulted today showing: Moderate pericardial effusion measuring 1.5 cm in thickness. No evidence of pulmonary embolism. Small bilateral layering pleural effusions with overlying atelectasis versus infiltrates. Tiny opacities, apparently clustered in tree-in-bud distribution in the right upper lobe suggestive of endobronchial infection/inflammation. 5-6 mm right upper lung lobe nodule present. Dilated pulmonary trunk at 3.7 cm suggestive of pulmonary hypertension. Partially calcified plaque at the proximal left subclavian artery, resulting in 50-75% stenosis. Shotty likely reactive subcentimeter mediastinal lymph nodes seen in addition to a prominent right hilar lymph node at 1.8 X 1.5 centimeter. ASSESSMENT AND PLAN: This is a 80-year-old female with a past medical history significant for psoriatic arthritis being treated with Remicade infusions that started in December 2020. She presents for hospitalization due to progressive dyspnea, pericardial effusions, pleural effusions, and bilateral pedal edema. #Atrial flutter with rapid ventricular rate secondary to pericardial effusion vs heart failure exacerbation Patient presented with heart rate in the 150s and continued to have atrial flutter with rapid ventricular rate, despite Lopressor and amiodarone infusion in the ED. Dr. Miller was consulted, inpatient service team appreciates cardiology cons ult. Per Dr. Miller's recommendations: -This is likely secondary to pericardial effusion (etiology of pericardial effusion, not yet known, possibly secondary to Remicade treatment, which patient started for psoriatic arthritis in December 2020.) -Pericardial effusion was drained by Dr. Duncan on 04/25/2021. -Patient received 0.[address] Miller on 04/25/2021 after pericardial window was done by Dr. Duncan -Continue metoprolol tartrate 50 mg twice a day per Dr. Miller. -Continue amiodarone 400 mg twice a day -Increased Lasix administration to 20 mg IV BID. -Pt had wheezing prior to the pericardial window and Xopenex 2 puffs as needed was added. Please do not consider albuterol at this time due to the patient's ongoing tachycardia. -Dr. Adame started digoxin 0.25 mg due to another event of atrial flutter yesterday. The fourth dose was held due to digoxin levels being high today. -Next digoxin level to be drawn and assessed will be tomorrow AM (04/30/2021), per Dr. Adame. -Pt would like Dr. Miller to be her outpatient campus supervisor after discharge. #Oozing from chest tube site, likely secondary to full anticoagulation. -Dr. Duncan was consulted again, inpatient service team appreciates Dr. Duncan's input. -Dr. Duncan placed a suture to stop the bleeding -Continue to monitor for continued bleeding. #Pericardial effusion status post pericardial window Etiology unknown at this time, considerations include history of psoriatic arthritis, Remicade administration, or neoplastic etiology. Patient has a history of psoriatic arthritis. Patient received Remicade beginning in December, which has a rare complication of pericardial effusions. The case was discussed over the phone with Diagnostic Radiologist, Dr. Sierra Moreno, who recommended prednisone and colchicine administration upon patient's admission. Colchicine administration will be 0.3 mg daily (decreased dose) since the patient is also receiving amiodarone (amiodarone predisposes patient to colchicine toxicity.) Pericardial window has been done. After chest tubes had been taken out Dr. Duncan, with cardiothoracic surgery, recommended that the patient continue on colchicine and NSAIDs and be weaned off prednisone. Patient received 3 doses of 40 mg from April 23 through April 26. Patient will be weaned off steroids. Due to pleural effusions and pericardial effusions, consider 40 mg prednisone continued at this time to prevent rebound pericardial effusion. Pt will likely need a longer taper due to her pericardial effusion etiology likely being inflammatory. -Patient is currently receiving ramelteon daily at bedtime and she is tolerating this well, and has improved sleep. -Monitor hemostasis before transitioning Lovenox to Eliquis after chest tube removal. #Elevated troponin. Patient's troponin level of 0.04 (04/26/2021) is not significantly elevated from less than 0.02 on 04/22/2021, despite cardiac surgery on 04/25/2021, trending not considered at this time. If patient's chest pain presents again, consider trending troponin. #Tachycardia-induced Acute Systolic CHF in setting of h/o HFpEF -Echocardiogram on 04/25/2021, EF 20-25%, elevated JVD per Dr. Miller -this is likely induced by prolonged tachycardia. -Bilateral pleural effusions present on CT imaging 04/24/2021 -inpatient team appreciates Dr. Miller's recommendations summarized under "#Atrial flutter with rapid ventricular rate secondary to pericardial effusion vs heart failure exacerbation" PT/OT evaluation and subsequent treatment has been ordered for patient due to decrease in ejection fraction. #Hyponatremia, resolving. Dr. Miller suspects SIADH secretion in the setting of chest pressure resulting in hyponatremia. Patient has a history of heart failure, therefore normal saline was not started since sodium level was 121 and threshold in heart failure is treatment begins. If sodium level is less than 120, consider gentle hydration (gentle because patient has pericardial effusion and heart failure). Patient's sodium level is 136 today after receiving 1 L of normal saline on 04/25/[address] Duncan. Paraneoplastic etiology cannot be ruled out at this time. -Cortisol AM pending at this time (taken since pt did not receive 40mg prednisone on one day, possible adrenal crisis sequelae). #Abnormal chest CT results Follow-up suggested for shotty likely reactive mediastinal lymph nodes prominent in the right hilar area. Outpatient follow-up CT chest recommended in 12 months due to finding of 5-6 mm nodule upper lung lobe. #Hypertensive heart failure Hold ASA at this time, pt had pericardial window done 04/26/2021. #Hypertension Lisinopril, home medication has been held by Dr. Miller, due to ongoing hyperkalemia. Dr. Miller's management of patient's hypertension is appreciated by inpatient service team. #Njx-xrejuuh-roznbvhdi diabetes mellitus type 2. Continue sliding scale insulin. Hold home medication of metformin at this time. Hypoglycemic protocol in place. 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 Continue home medication Gabapentin #History of dizziness. Continue home medication, Meclizine 12.5 mg DVT prophylaxis: Patient is receiving Lovenox 80 mg twice a day subcutaneous. Consider changing to Eliquis when established that patient has good hemostasis, per Dr. Miller's recommendations. DISPOSITION: Discharge is not likely within the next couple days as the pt continues to have elevated heart rate and still needs to be bridged to oral anticoagulants. VS, I&O, 24H, Fishbone Vital Signs/I&O Vital Signs Date Time Temp Pulse Resp B/P (MAP) Pulse Ox O2 Delivery O2 Flow Rate FiO2 04/29/21 12:00 74 137/70 04/29/21 08:03 97.4 20 97 Room Air 04/28/21 20:00 1.0 I&O- Last 24 Hours up to 6 AM 04/29/21 05:59 Intake Total 1440 ml Output Total 2050 ml Balance -610 ml Laboratory Data 24H LABS Laboratory Tests 2 04/28/21 13:46: Anion Gap 3L, Glomerular Filtration Rate > 60.0, Calcium Level 7.6L, NT-P ro-B-Type Natriuretic Peptide 4237H 04/28/21 17:45: Bedside Glucose (Misc Panel) 176H 04/28/21 19:29: Anion Gap 5L, Glomerular Filtration Rate > 60.0, Calcium Level 7.9L, Digoxin Level 1.6 04/28/21 21:26: Bedside Glucose (Misc Panel) 198H 04/29/21 04:29: Nucleated Red Blood Cells % (auto) 0.0, Anion Gap 3L, Glomerular Filtration Rate > 60.0, Calcium Level 7.6L, Digoxin Level 2.2H 04/29/21 08:43: Bedside Glucose (Misc Panel) 130H 04/29/21 11:42: Bedside Glucose (Misc Panel) 186H CBC/BMP Laboratory Tests 04/28/21 13:46 04/28/21 19:29 04/29/21 04:29 Microbiology Microbiology 04/25/21 Acid Fast Stain, Received Pending 04/25/21 Mycobacterial Culture, Received Pending 04/25/21 Fungal Smear, Received Pending 04/25/21 Fungal Culture, Received Pending 04/25/21 Gram Stain - Final, Complete 04/25/21 Body Fluid Culture - Final, Complete 04/25/21 Anaerobic Culture - Final, Complete 04/25/21 Acid Fast Stain, Received Pending 04/25/21 Mycobacterial Culture, Received Pending 04/25/21 Fungal Smear, Received Pending 04/25/21 Fungal Culture, Received Pending 04/25/21 Gram Stain - Final, Complete 04/25/21 Body Fluid Culture - Final, Complete 04/25/21 Anaerobic Culture - Final, Complete 04/25/21 Acid Fast Stain, Received Pending 04/25/21 Mycobacterial Culture, Received Pending 04/25/21 Fungal Smear, Received Pending 04/25/21 Fungal Culture, Received Pending 04/25/21 Gram Stain - Final, Complete 04/25/21 Body Fluid Culture - Final, Complete 04/25/21 Anaerobic Culture - Final, Complete 04/22/21 Respiratory Virus Panel (PCR) ([facility]) - Final, Complete GME ATTESTATION GME ATTESTATION My faculty preceptor for this patient encounter was physically present during the encounter and was fully available. All aspects of the patient interview, examination, medical decision making process, and medical care plan development were reviewed and approved by the faculty preceptor. The faculty preceptor is aware and concurs with the plan as stated in the body of this note and will attest to such by his/her cosignature. ATTENDING NOTE Attending Attestation: Patient independently seen and examined. I have discussed in detail with the resident the findings and plan of treatment as documented by the resident. I agree with their findings and treatment plan. I will continue to follow the patient during this hospital stay. Cheko Castellanos DO Apr 29, 2021 17:35 STEPHEN BLANK MD Apr 30, 2021 06:48
[2021-04-29 20:00] VITALS: BP 153/70
[2021-04-29] MEDS: GABAPENTIN 300 MG CAP PO SCH (21:00)
[2021-04-29] MEDS: METOPROLOL TARTRATE 100 MG TAB PO SCH (21:01)
[2021-04-30] VITALS: BP 160/77
[2021-04-30] MEDS: RAMELTEON 8 MG TAB (ROZEREM) PO PRN (03:15)
[2021-04-30 03:40] LABS: HEMATOCRIT 37.7 % (36.0-47.0); HEMOGLOBIN 12.2 g/dl (12.0-15.5); MEAN CORPUSCULAR HEMOGLOBIN 29.4 pg (27.0-33.0); MEAN CORPUSCULAR HGB CONC 32.4 g/dl (32.0-36.5); MEAN CORPUSCULAR VOLUME 90.8 fl (80.0-96.0); PLATELET COUNT, AUTOMATED 556 10^3/uL (150-450); RED BLOOD COUNT 4.15 10^6/uL (4.00-5.40); WHITE BLOOD COUNT 16.2 10^3/uL (4.0-10.0)
[2021-04-30 04:00] VITALS: BP 158/81
[2021-04-30 04:19] LABS: CALCIUM LEVEL 7.5 MG/DL (8.8-10.2); CREATININE FOR GFR 0.97 MG/DL (0.55-1.30); DIGOXIN LEVEL 1.6 NG/ML (0.5-2.0); GLOMERULAR FILTRATION RATE 59.1 (>39); POTASSIUM SERUM 4.4 MEQ/L (3.5-5.1)
[2021-04-30] MEDS: KETOROLAC 30 MG/ML 1ML VIAL IV SCH (05:58)
[2021-04-30] MEDS: LEVOTHYROXINE 50MCG TABLET (0.05MG) PO SCH (05:58)
[2021-04-30 08:01] VITALS: BP 144/68
[2021-04-30] MEDS: FUROSEMIDE 20MG/2ML VIAL (J1940) IV SCH ×2 (08:41→16:52)
[2021-04-30] MEDS: COLCHICINE 0.6 MG TABLET PO SCH (08:42)
[2021-04-30] MEDS: HumaLOG INSULIN (NovoLOG) PER UNIT SC SCH ×4 (08:42→20:47)
[2021-04-30] MEDS: MIRALAX *UNIT DOSE* 17GM PACKET PO SCH (08:42)
[2021-04-30] MEDS: ENOXAPARIN 80MG/0.8ML SYRINGE (J1650 PER 10MG) SC SCH ×2 (08:42→20:40)
[2021-04-30] MEDS: PANTOPRAZOLE 40MG TAB (PROTONIX) PO SCH (08:43)
[2021-04-30] MEDS: DOCUSATE SODIUM 100MG CAPSULE PO SCH ×2 (08:43→20:47)
[2021-04-30] MEDS: AMIODARONE 200 MG TAB (PACERONE) PO SCH ×2 (08:43→20:47)
[2021-04-30] MEDS: COMBIGAN OS SCH ×2 (08:43→20:48)
[2021-04-30] MEDS: ATORVASTATIN 10 MG TAB PO SCH (08:43)
[2021-04-30] MEDS: METOPROLOL TARTRATE 100 MG TAB PO SCH ×2 (08:43→20:47)
[2021-04-30] MEDS: predniSONE 20 MG TAB PO SCH (08:43)
--- NOTE | 2021-04-30 09:01 | REP ---
INDICATION: pericardial efusion. COMPARISON: Comparison chest x-ray April 29, 2021. TECHNIQUE: Two views.. FINDINGS: There is blunting of the pleural angles bilaterally, left a little more so than right. This is improved on the left compared with yesterday's chest radiograph. There is no evidence of pneumothorax. The heart is mildly enlarged unchanged. The thoracic aorta is somewhat tortuous as before. There is old posttraumatic deformity of the clavicle on the left. No acute bony abnormality is seen. No new infiltrate. IMPRESSION: Small bilateral pleural effusions left larger than right. Left effusion improved compared with yesterday's radiograph. Cardiomegaly unchanged.. <Electronically signed by Heri Dobson > 04/30/21 0821
[2021-04-30 11:23] VITALS: BP 141/69
--- NOTE | 2021-04-30 13:22 | IPNPDOC ---
Text Note Date of Service The patient was seen on 04/30/21. NOTE SUBJECTIVE: Patient seen and examined. No acute overnight events reported. Patient continues to feel better. She is concerned about some swelling in her feet, otherwise, she has no new medical complaints this morning. Objective: General: NAD, lying comfortably in bed, in good spirits HEENT: NC/AT, EOMI, edentulous Lungs: minimal basilar crackles Heart: +S1S2, -M/R/F Abd: soft, NT, +BS Ext: trace edema Neuro: no gross focal deficits Psych: AAOx3 A/P: 80F with PMHx including psoriatic arthritis treated with Remicade infusions started December 2020. She presents for progressive dyspnea with worsening lower extremity edema, foudn to be in atrial flutter/RVR with pericardial effusions, pleural effusions. #Atrial flutter with rapid ventricular rate - much improved, essentially resolved - s/p digoxin loading - currently on amiodarone 400 BID, metoprolol 100 BID - follow as per cardiology - assistance appreciated - continue telemetry monitoring - likely secondary to pericardial effusion #Pericardial effusion - s/p window - 04/25/2021 - etiology of pericardial effusion, not yet known, possibly secondary to Remicade treatment, which patient started for psoriatic arthritis in December 2020.) - pathology negative for malignancy The case was discussed over the phone with University Relations Director, Dr. Sierra Moreno, who recommended prednisone and colchicine administration upon patient's admission. Colchicine administration will be 0.3 mg daily (decreased dose) since the patient is also receiving amiodarone (amiodarone predisposes patient to colchicine toxicity.) After chest tubes had been taken out Dr. Duncan, with cardiothoracic surgery, recommended that the patient continue on colchicine and NSAIDs and be weaned off prednisone. #Oozing from chest tube site, likely secondary to full anticoagulation. -resolved, s/p suture #Tachycardia-induced cardiomyopathy - acute HFrEF, underlying HFpEF -Echocardiogram on 04/25/2021, EF 20-25%, elevated JVD per Dr. Miller PT/OT evaluation and subsequent treatment has been ordered for patient due to decrease in ejection fraction. #Hyponatremia, resolving. - continue to monitor #Abnormal chest CT results Follow-up suggested for shotty likely reactive mediastinal lymph nodes prominent in the right hilar area. Outpatient follow-up CT chest due to finding of 5-6 mm nodule upper lung lobe. #Hypertensive heart failure Hold ASA at this time, pt had pericardial window done 04/26/2021. #HTN Lisinopril, home medication has been held by Dr. Miller, due to ongoing hyperkalemia. - BB, diuresis as above - still slightly high - continue to monitor #Rpi-mbbnuth-vsccozywz diabetes mellitus type 2. Continue sliding scale insulin. Hold home medication of metformin at this time. Hypoglycemic protocol in place. 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 Continue home medication Gabapentin #History of dizziness. Continue home medication, Meclizine 12.5 mg - PT/OT DVT prophylaxis: Patient is receiving Lovenox 80 mg twice a day subcutaneous. Consider changing to Eliquis DISPOSITION: Continue IV diuresis for now. Continue telemetry monitoring. Follow-up cardiology, PT, OT. Possible home services versus rehabilitation VS,Konstantin, I+O VS, Konstantin I+O Laboratory Tests 04/30/21 03:17 Vital Signs Date Time Temp Pulse Resp B/P (MAP) Pulse Ox O2 Delivery O2 Flow Rate FiO2 04/30/21 11:23 97.9 74 18 141/69 (93) 94 Room Air 04/28/21 20:00 1.0 I&O- Last 24 Hours up to 6 AM 04/30/21 06:00 Intake Total 1080 ml Output Total 2975 ml Balance -1895 ml STEPHEN BLANK MD Apr 30, 2021 13:22
[2021-04-30 16:00] VITALS: BP 144/68
--- NOTE | 2021-04-30 16:09 | ECGEPIP ---
[facility] Test Date: 2021-04-28 Pat Name: SHARLENE CALERO Department: Room: [place] [address] Gender: Female Material Mover: SAM : 1940 Requested By: STEPHEN Melton Order Number: [id number] Reading MD: Junaid Adame Measurements Intervals [place] Rate: 139 P: 207 MD: QRS: 105 QRSD: 146 T: -59 QT: 362 QTc: 550 Interpretive Statements Atrial flutter with 2:1 AV conduction Right bundle branch block LEFT POSTERIOR FASCICULAR BLOCK Compared to prior tracings (4)the system No remarkable changes but slower heart rate Cannot rule out Inferior infarct , age undetermined Electronically Signed on 04-30-2021 16:09:40 EDT by Junaid Adame
[2021-04-30 20:00] VITALS: BP 133/87
[2021-04-30] MEDS: TAFLUPROST OS SCH (20:48)
[2021-04-30] MEDS: GABAPENTIN 300 MG CAP PO SCH (20:49)
[2021-05-01] VITALS: BP 139/72
[2021-05-01] MEDS: ACETAMINOPHEN TAB 650MG DOSE (2X325MG) PO PRN ×2 (00:57→20:01)
[2021-05-01 04:00] VITALS: BP 160/72
[2021-05-01] MEDS: LEVOTHYROXINE 50MCG TABLET (0.05MG) PO SCH (05:45)
[2021-05-01 06:10] LABS: HEMATOCRIT 38.3 % (36.0-47.0); HEMOGLOBIN 12.2 g/dl (12.0-15.5); MEAN CORPUSCULAR HEMOGLOBIN 29.6 pg (27.0-33.0); MEAN CORPUSCULAR HGB CONC 31.9 g/dl (32.0-36.5); PLATELET COUNT, AUTOMATED 540 10^3/uL (150-450); RED BLOOD COUNT 4.12 10^6/uL (4.00-5.40); WHITE BLOOD COUNT 17.3 10^3/uL (4.0-10.0)
[2021-05-01 06:36] LABS: BLOOD UREA NITROGEN 28 MG/DL (7-18); CALCIUM LEVEL 8.5 MG/DL (8.8-10.2); CARBON DIOXIDE LEVEL 35 MEQ/L (21-32); CHLORIDE LEVEL 96 MEQ/L (98-107); CREATININE FOR GFR 0.95 MG/DL (0.55-1.30); GLOMERULAR FILTRATION RATE > 60.0 (>39); GLUCOSE, FASTING 121 MG/DL (70-100); POTASSIUM SERUM 4.9 MEQ/L (3.5-5.1); SODIUM LEVEL 135 MEQ/L (136-145)
[2021-05-01 07:00] LABS: AMORPHOUS SEDIMENT SMALL (NEGATIVE); APPEARANCE, URINE CLOUDY (CLEAR); BACTERIA, URINE AUTO 1+ (NEGATIVE); BILIRUBIN, URINE AUTO NEGATIVE (NEGATIVE); BLOOD, URINE BLOOD 1+ (NEGATIVE); COLOR, URINE YELLOW (YELLOW); GLUCOSE, URINE (UA) AUTO 1+ mg/dL (NEGATIVE); KETONE, URINE AUTO NEGATIVE (NEGATIVE); LEUKOCYTE ESTERASE, URINE AUTO 2+ (NEGATIVE); MUCUS, URINE SMALL (NEGATIVE); NITRITE, URINE AUTO NEGATIVE (NEGATIVE); PROTEIN, URINE AUTO NEGATIVE (NEGATIVE); RBC, URINE AUTO 4 /HPF (0-3); SPECIFIC GRAVITY URINE AUTO 1.018 (1.002-1.035); SQUAMOUS EPITHELIAL CELL UR AU 15 /HPF (0-6); UROBILINOGEN, URINE AUTO 0.2 mg/dL (0.0-2.0); WBC, URINE AUTO 9 /HPF (0-3)
[2021-05-01] MEDS: MIRALAX *UNIT DOSE* 17GM PACKET PO SCH (08:18)
[2021-05-01] MEDS: AMIODARONE 200 MG TAB (PACERONE) PO SCH ×2 (08:19→20:01)
[2021-05-01] MEDS: PANTOPRAZOLE 40MG TAB (PROTONIX) PO SCH (08:19)
[2021-05-01] MEDS: DOCUSATE SODIUM 100MG CAPSULE PO SCH ×2 (08:19→20:01)
[2021-05-01] MEDS: FUROSEMIDE 20MG/2ML VIAL (J1940) IV SCH ×2 (08:19→17:28)
[2021-05-01] MEDS: predniSONE 20 MG TAB PO SCH (08:19)
[2021-05-01] MEDS: METOPROLOL TARTRATE 100 MG TAB PO SCH ×2 (08:22→20:02)
[2021-05-01] MEDS: ATORVASTATIN 10 MG TAB PO SCH (08:22)
[2021-05-01] MEDS: HumaLOG INSULIN (NovoLOG) PER UNIT SC SCH ×4 (08:23→20:34)
[2021-05-01] MEDS: COMBIGAN OS SCH ×2 (08:23→20:02)
[2021-05-01] MEDS: COLCHICINE 0.6 MG TABLET PO SCH (08:29)
--- NOTE | 2021-05-01 09:12 | REP ---
INDICATION: pericardial efusion COMPARISON: 04/30/2021 TECHNIQUE: PA and lateral. FINDINGS: The mediastinum and cardiac silhouette are normal/stable.. The lung garcia demonstrate mild bibasilar opacities and blunting to the costophrenic angles (left greater than right) suggesting elements of atelectasis and small pleural effusions. Findings are essentially unchanged compared to prior examination. No pneumothorax. Skeletal structures intact with old left clavicle fracture again noted.. IMPRESSION: No significant change from prior examination. Continued bibasilar opacities suggesting minimal atelectasis and small pleural effusions. <Electronically signed by Vito Haque > 05/01/21 0953
--- NOTE | 2021-05-01 10:10 | IPNPDOC ---
Date Seen The patient was seen on 05/01/21. Progress Note SUBJECTIVE: This is hospital day 9 for this patient. Chest tubes were taken out on 04/27/2021. She was downgraded to the PCU with telemetry. The patient continues to be in atrial flutter, with rate in 110s this morning. The patient states that she feels short of breath, but this may be due to her heart rate increasing after being transferred from the wheelchair as she had just presented back from Radiology. The patient reports that she is feeling better today. Pt reports some tingling in her feet, but states that this comes and goes and is a chronic ongoing problem, which the patient attributes to ongoing neurological spinal problems being managed in the outpatient setting. Patient reports that she is having good sleep, however, wakes up around 1 AM and finds it difficult to fall back asleep, she associates this with being in the unfamiliar setting of the hospital. OBJECTIVE PHYSICAL EXAMINATION: VITAL SIGNS: Please see below. GENERAL: Patient is in no acute distress, resting comfortably in bedside chair. HEENT: Normocephalic, atraumatic, no scleral icterus, oral mucosa moist CARDIOVASCULAR: Regularly irregular rhythm, normal rate in the 130s, no murmurs, rubs or gallops appreciated. RESPIRATORY: bibasilar crackles, no W/R/R ABDOMINAL: Soft, nondistended, nontender, bowel sounds present. EXTREMITIES: Bilateral pedal edema still present, but has not progressed. No cyanosis or clubbing appreciated of the hands or feet. LE +5/5, pt able to wiggle toes without difficulty nor with associated worsening tingling sensation. NEUROLOGICAL: Good tone. PSYCHOLOGICAL: Pt was alert and cooperative on exam. LABORATORY DATA, IMAGING STUDIES, MICROBIOLOGY: Please see below. Echocardiogram: 04/22/2021 1. Study is of fair technical quality, underlying flutter with variable ventricular rate. 2. Normal LV size with moderate LVH, at least mild left ventricular systolic dysfunction, and no segmental wall motion abnormalities. 3. Aortic sclerosis with no stenosis and mild insufficiency. 4. Trace mitral and tricuspid insufficiency. 5. At least mildly elevated central venous pressure and [id number] pulmonary hypertension. 6. Moderate pericardial effusion without signs of cardiac compression. 7. Dilated aortic root (4.0 cm). Echocardiogram: 04/25/2021 No official reading on echocardiogram, but per Dr. Miller: "a 2-dimensional echocardiogram was obtained. It revealed approximately moderate size pericardial effusion but there were some early signs of cardiac compression, specifically there is a significant variation on both tricuspid and mitral in-flow velocities, there is also partial free right atrial wall collapse dependent on respiration. Additional findings, she now has significant LV systolic dysfunction. I estimate her EF around 20 to 25% and there are bilateral pleural effusions." Chest CT with /07/[address] resulted today showing: Moderate pericardial effusion measuring 1.5 cm in thickness. No evidence of pulmonary embolism. Small bilateral layering pleural effusions with overlying atelectasis versus infiltrates. Tiny opacities, apparently clustered in tree-in-bud distribution in the right upper lobe sugge stive of endobronchial infection/inflammation. 5-6 mm right upper lung lobe nodule present. Dilated pulmonary trunk at 3.7 cm suggestive of pulmonary hypertension. Partially calcified plaque at the proximal left subclavian artery, resulting in 50-75% stenosis. Shotty likely reactive subcentimeter mediastinal lymph nodes seen in addition to a prominent right hilar lymph node at 1.8 X 1.5 centimeter. ASSESSMENT AND PLAN: This is a 80-year-old female with a past medical history significant for psoriatic arthritis being treated with Remicade infusions that started in December 2020. She presents for hospitalization due to progressive dyspnea, pericardial effusions, pleural effusions, and bilateral pedal edema. #Atrial flutter with rapid ventricular rate secondary to pericardial effusion vs heart failure exacerbation Patient presented with heart rate in the 150s and continued to have atrial flutter with rapid ventricular rate, despite Lopressor and amiodarone infusion in the ED. Dr. Miller was consulted, inpatient service team appreciates cardiology consult. Per Dr. Miller's recommendations: -This is likely secondary to pericardial effusion (etiology of pericardial effusion, not yet known, possibly secondary to Remicade treatment, which patient started for psoriatic arthritis in December 2020.) -Pericardial effusion was drained by Dr. Duncan on 04/25/2021. -Patient received 0.[address] Miller on 04/25/2021 after pericardial window was done by Dr. Duncan -Continue metoprolol tartrate 50 mg twice a day per Dr. Miller. -Continue amiodarone 400 mg twice a day -Continue Lasix administration to 20 mg IV BID. -Xarelto started by Dr. Miller, 20mg. -Pt had wheezing prior to the pericardial window and Xopenex 2 puffs as needed was added. Please do not consider albuterol at this time due to the patient's ongoing tachycardia. -Dr. Adame started digoxin 0.25 mg due to another event of atrial flutter on 04/28/21. The fourth dose was held due to digoxin levels being high on 04/29/21. -Digoxin level on 04/30/21 was within normal limits, down to 1.6. -Pt would like Dr. 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 #Oozing from chest tube site, likely secondary to full anticoagulation. -Dr. Duncan was consulted again on 04/29/21, inpatient service team appreciates Dr. Duncan's input. -Dr. Duncan placed a suture to stop the bleeding -Continue to monitor for continued bleeding. #Pericardial effusion status post pericardial window Etiology unknown at this time, considerations include history of psoriatic arthritis, Remicade administration, or neoplastic etiology. Patient has a history of psoriatic arthritis. Patient received Remicade beginning in December, which has a rare complication of pericardial effusions. The case was discussed over the phone with [facility], Dr. Sierra Moreno, who recommended prednisone and colchicine administration upon patient's admission. Colchicine administration will be 0.3 mg daily (decreased dose) since the patient is also receiving amiodarone (amiodarone predisposes patient to colchicine toxicity.) Pericardial window has been done. After chest tubes had been taken out Dr. Duncan, with cardiothoracic surgery, recommended that the patient continue on colchicine and NSAIDs and be weaned off prednisone. Patient received 3 doses of 40 mg from April 23 through April 26. Patient will be weaned off steroids. Due to pleural effusions and pericardial effusions, consider 40 mg prednisone continued at this time to prevent rebound pericardial effusion. Pt will likely need a longer taper due to her pericardial effusion etiology likely being inflammatory. -Patient is currently receiving ramelteon daily at bedtime and she is tolerating this well, and has improved sleep. #Elevated troponin. Patient's troponin level of 0.04 (04/26/2021) is not significantly elevated from less than 0.02 on 04/22/2021, despite cardiac surgery on 04/25/2021, trending not considered at this time. If patient's chest pain presents again, consider trending troponin. #Tachycardia-induced Acute Systolic CHF in setting of h/o HFpEF -Echocardiogram on 04/25/2021, EF 20-25%, elevated JVD per Dr. Miller -this is likely induced by prolonged tachycardia. -Bilateral pleural effusions present on CT imaging 04/24/2021 -inpatient team appreciates Dr. Miller's recommendations summarized under "#Atrial flutter with rapid ventricular rate secondary to pericardial effusion vs heart failure exacerbation" PT/OT evaluation and subsequent treatment has been ordered for patient due to decrease in ejection fraction. #Hyponatremia, resolving. Dr. Miller suspects SIADH secretion in the setting of chest pressure resulting in hyponatremia on presentation. Patient has a history of heart failure, therefore normal saline was not started since sodium level was 121 and threshold in heart failure is treatment begins. If sodium level is less than 120, consider gentle hydration (gentle because patient has pericardial effusion and heart failure). Patient's sodium level is 135 today after receiving 1 L of normal saline on 04/25/[address] Duncan. Paraneoplastic etiology cannot be ruled out at this time. -Cortisol AM pending at this time (taken since pt did not receive 40mg prednisone on one day, possible adrenal crisis sequelae). #Abnormal chest CT results Follow-up suggested for shotty likely reactive mediastinal lymph nodes prominent in the right hilar area. Outpatient follow-up CT chest recommended in 12 months due to finding of 5-6 mm nodule upper lung lobe. #Hypertensive heart failure Hold ASA at this time, pt had pericardial window done 04/26/2021. #Hypertension Lisinopril, home medication has been held by Dr. Miller, due to ongoing hyperkalemia. Dr. Miller's management of patient's hypertension is appreciated by inpatient service team. #[id number] diabetes mellitus type 2. Continue sliding scale insulin. Hold home medication of metformin at this time. Hypoglycemic protocol in place. 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 Continue home medication Gabapentin #History of dizziness. Continue home medication, Meclizine 12.5 mg DVT prophylaxis: Lovenox 80mg changed to Xarelto 20mg daily for atrial flutter by Dr. Miller. DISPOSITION: Discharge is not likely within the next couple days as the pt continues to have elevated heart rate during intervals of changing position. Cardiology input appreciated. VS, I&O, [facility] Signs/I&O Vital Signs Date Time Temp Pulse Resp B/P (MAP) Pulse Ox O2 Delivery O2 Flow Rate FiO2 05/01/21 08:22 90 155/93 05/01/21 04:00 97.1 18 97 Room Air 04/28/21 20:00 1.0 I&O- Last 24 Hours up to 6 AM 05/01/21 06:00 Intake Total 430 ml Output Total 2920 ml Balance -2490 ml Laboratory Data 24H LABS Laboratory Tests 2 04/30/21 11:05: Bedside Glucose (Misc Panel) 165H 04/30/21 16:14: Bedside Glucose (Misc Panel) 286H 04/30/21 20:45: Bedside Glucose (Misc Panel) 240H 05/01/21 05:47: Nucleated Red Blood Cells % (auto) 0.0, Anion Gap 4L, Glomerular Filtration Rate > 60.0, Calcium Level 8.5L 05/01/21 06:35: Urine Color YELLOW, Urine Appearance CLOUDYH, Urine pH 7.0, Urine Specific Reynolds 1.018, Urine Protein NEGATIVE, Urine Glucose (Auto)(UA) 1+H, Urine Ketones (Auto) NEGATIVE, Urine Blood 1+H, Urine Nitrite NEGATIVE, Urine Bilirubin NEGATIVE, Urine Urobilinogen 0.2, Urine Leukocyte Esterase (Auto) 2+H, Urine WBC (Auto) 9H, Urine RBC (Auto) 4H, Urine Hyaline Casts (Auto) 0, Urine Bacteria (Auto) 1+H, Urine Squamous Epithelial Cells 15, Urine Amorphous Sediment (Auto) SMALLH, Urine Mucus (Auto) SMALL, Urine Sperm (Auto) CBC/BMP Laboratory Tests 05/01/21 05:47 Microbiology Microbiology 04/25/21 Acid Fast Stain, Received Pending 04/25/21 Mycobacterial Culture, Received Pending 04/25/21 Fungal Smear, Received Pending 04/25/21 Fungal Culture, Received Pending 04/25/21 Gram Stain - Final, Complete 04/25/21 Body Fluid Culture - Final, Complete 04/25/21 Anaerobic Culture - Final, Complete 04/25/21 Acid Fast Stain, Received Pending 04/25/21 Mycobacterial Culture, Received Pending 04/25/21 Fungal Smear, Received Pending 04/25/21 Fungal Culture, Received Pending 04/25/21 Gram Stain - Final, Complete 04/25/21 Body Fluid Culture - Final, Complete 04/25/21 Anaerobic Culture - Final, Complete 04/25/21 Acid Fast Stain, Received Pending 04/25/21 Mycobacterial Culture, Received Pending 04/25/21 Fungal Smear, Received Pending 04/25/21 Fungal Culture, Received Pending 04/25/21 Gram Stain - Final, Complete 04/25/21 Body Fluid Culture - Final, Complete 04/25/21 Anaerobic Culture - Final, Complete 04/22/21 Respiratory Virus Panel (PCR) ([facility]OR[facility]ZO) - Final, Complete GME ATTESTATION GME ATTESTATION My faculty preceptor for this patient encounter was physically present during the encounter and was fully available. All aspects of the patient interview, examination, medical decision making process, and medical care plan development were reviewed and approved by the faculty preceptor. The faculty preceptor is aware and concurs with the plan as stated in the body of this note and will attest to such by his/her cosignature. Cheko Castellanos DO May 01, 2021 10:10
[2021-05-01 11:11] LABS: CORTISOL AM 8.8 UG/DL (4.3-22.4)
[2021-05-01 12:00] VITALS: BP 130/67
--- NOTE | 2021-05-01 16:13 | IPN ---
PROGRESS NOTE DATE: 04/30/2021 SUBJECTIVE: I did a quick wound check on Mrs. Ray today. Her wounds are healing well. The chest tube site which was oozing is now dry with two silk sutures in them. PLAN: If Mrs. Ray is still in the hospital in three or four days, I will return to remove her suture tags. If that occurs, she will not need to see me in followup.
--- NOTE | 2021-05-01 17:26 | IPN ---
PROGRESS NOTE DATE: 05/01/2021 SUBJECTIVE: Mrs. Ray looks a lot better since I saw her last on . She had all of her tubes removed. She is able to ambulate with some help and her heart rate is better controlled. She still overnight had occasional acceleration in the 230s, but for the past part the heart rate is around 70 beats per minute. There is still atrial flutter with typically 4:1 conduction. There were no bradyarrhythmic problems. She denies any chest pain. She still feels short of breath with mild activity, but she says it is a lot better than it was before she came to the hospital and close to her baseline. OBJECTIVE: VITAL SIGNS: Blood pressure this morning is 160/72, but generally it has been in the 130s. Heart rate as above. She is afebrile. Saturation of 97% on room air. INTAKE AND OUTPUT: Her fluid balance yesterday was recorded as negative 2800, but I suspect that it may not be completely accurate because the intake was poorly documented. Weight was recorded at 85 kg. GENERAL: She is alert, oriented, and appropriate. NECK: I do not appreciate distinct JVP elevation above the clavicle. LUNGS: Clear with maybe slightly diminished breath sounds over the bases, but no wheezing, no crackles, and no rhonchi. HEART: Reveals irregular rhythm. Rate about 70. I do not appreciate a gallop, rub, or murmur. ABDOMEN: Soft. No tenderness. EXTREMITIES: Have about 1+ edema around the ankles. LABORATORY DATA: Basic metabolic panel with sodium of 135, potassium 4.9, BUN 28, creatinine 1.0, glucose 121. N-terminal proBNP was 5200 yesterday. CBC with WBC count of 10.3, hemoglobin 12.2, hematocrit 38, and platelet count 540,000. Digoxin level was drawn yesterday and was 1.6. ASSESSMENT AND PLAN: Mrs. Ray is a 80-year-old female who has a history of hypertensive heart disease who presented with pericardial effusion and atrial flutter with rapid ventricular response. She eventually underwent pericardial window placement after she had early signs of cardiac compression by echocardiogram. Analysis of the fluid indicates inflammatory etiology, most likely related to her psoriatic arthritis or the use of medications to suppress it. She has been on cholchicine and prednisone. I would initiate the prednisone taper pretty rapidly at this point. As far as the atrial flutter is concerned, it is still not perfectly well-controlled. She remains on amiodarone 400 twice a day and I would continue that to complete two weeks. She is also on metoprolol 100 twice a day. I do hope that we will be able not to use the digoxin and I am not going to give her dose today; but if she continues to have episodes of tachycardia, we may need to continue at a low dose. Otherwise, hopefully, she will be able to advance with physical therapy and if her heart rate remains acceptable, she might be able to be discharged home within a day or two. I will switch her Lovenox to Xarelto for the ease of administration.
[2021-05-01] MEDS: RIVAROXABAN 20 MG TAB (XARELTO) PO SCH (17:27)
[2021-05-01] MEDS ORDERED: DIGOXIN 0.25 MG TAB PO STA (18:30)
[2021-05-01 19:50] VITALS: BP 114/80
[2021-05-01] MEDS: TAFLUPROST OS SCH (20:02)
[2021-05-01] MEDS: RAMELTEON 8 MG TAB (ROZEREM) PO PRN (22:39)
[2021-05-01] MEDS: NORCO, ANEXSIA 5/325MG TABLET (HYDROcodone/ACETAMINOPHEN) PO PRN (22:40)
[2021-05-02] VITALS: BP 120/64
[2021-05-02 04:00] VITALS: BP 139/66
[2021-05-02] MEDS: LEVOTHYROXINE 50MCG TABLET (0.05MG) PO SCH (05:17)
[2021-05-02 05:51] LABS: HEMOGLOBIN 12.2 g/dl (12.0-15.5); MEAN CORPUSCULAR HEMOGLOBIN 29.3 pg (27.0-33.0); MEAN CORPUSCULAR HGB CONC 32.1 g/dl (32.0-36.5); MEAN CORPUSCULAR VOLUME 91.1 fl (80.0-96.0); PLATELET COUNT, AUTOMATED 448 10^3/uL (150-450); RED BLOOD COUNT 4.17 10^6/uL (4.00-5.40); WHITE BLOOD COUNT 15.6 10^3/uL (4.0-10.0)
[2021-05-02 06:10] LABS: CALCIUM LEVEL 7.9 MG/DL (8.8-10.2); CREATININE FOR GFR 0.97 MG/DL (0.55-1.30); GLOMERULAR FILTRATION RATE 59.1 (>39); POTASSIUM SERUM 4.1 MEQ/L (3.5-5.1)
[2021-05-02] MEDS: HumaLOG INSULIN (NovoLOG) PER UNIT SC SCH ×4 (07:53→20:09)
[2021-05-02] MEDS: MIRALAX *UNIT DOSE* 17GM PACKET PO SCH (07:54)
[2021-05-02] MEDS: COMBIGAN OS SCH ×2 (07:54→20:19)
[2021-05-02] MEDS: PANTOPRAZOLE 40MG TAB (PROTONIX) PO SCH (07:55)
[2021-05-02] MEDS: predniSONE 20 MG TAB PO SCH (07:55)
[2021-05-02] MEDS: DOCUSATE SODIUM 100MG CAPSULE PO SCH ×2 (07:55→20:19)
[2021-05-02] MEDS: ATORVASTATIN 10 MG TAB PO SCH (07:55)
[2021-05-02] MEDS: AMIODARONE 200 MG TAB (PACERONE) PO SCH ×2 (07:55→20:18)
[2021-05-02] MEDS: FUROSEMIDE 20MG/2ML VIAL (J1940) IV SCH ×2 (07:56→18:15)
[2021-05-02] MEDS: METOPROLOL TARTRATE 100 MG TAB PO SCH ×2 (07:56→20:18)
[2021-05-02 08:00] VITALS: BP 149/81
--- NOTE | 2021-05-02 08:00 | REP ---
INDICATION: pericardial efusion COMPARISON: 05/01/2021 TECHNIQUE: PA and lateral. FINDINGS: The mediastinum and cardiac silhouette are normal. Lateral views again best demonstrate small residual pleural effusions (left greater than right) which are essentially unchanged. Lung garcia are otherwise well aerated and clear. IMPRESSION: No significant change from prior examination with small residual bilateral pleural effusions again noted. <Electronically signed by Vito Haque > 05/02/21 0615
[2021-05-02] MEDS: COLCHICINE 0.6 MG TABLET PO SCH (08:03)
--- NOTE | 2021-05-02 10:11 | IPN ---
PROGRESS NOTE DATE: 05/02/2021 SUBJECTIVE: Mrs. Ray is feeling about the same as yesterday. She is comfortable at rest but with relatively mild activity she gets easily short of breath. She remains in atrial flutter. She was well-controlled throughout the day yesterday but then in the afternoon she went into 2:1 conduction with a heart rate around 140 after she got an additional dose of Digoxin and Metoprolol her heart rate was controlled throughout the night but this morning when she got out of bed again she became tachycardic. She has some awareness of the palpitations but not very much. If anything, she will experience shortness of breath. OBJECTIVE: GENERAL: Mrs. Ray is an elderly white female alert and oriented and appropriate. She does not appear to be in any distress. VITAL SIGNS: Last set of vital signs: Blood pressure 139/74, heart rate was about 100 beats per minute when I was examining her, afebrile, saturation 95% on room air. INTAKE AND OUTPUT: Fluid balance yesterday was recorded as negative 1800 ml but again the intake was not well documented. The weight is reported as 82 kg. NECK: Her JVP is not high. LUNGS: Clear to auscultation bilaterally with only mildly diminished breath sounds over both bases. HEART: Irregularly irregular rhythm, I do not appreciate any distinct murmur, gallop or rub. ABDOMEN: Obese but soft. EXTREMITIES: Mild edema. NEUROLOGIC: She is intact. LABORATORY DATA: CBC as of today: WBC count is 15.6, hemoglobin is 12.2, hematocrit is 38 and platelet count is 448,000. Basic metabolic panel: Sodium is 133, potassium is 4.1, BUN 30, creatinine is 1 and glucose is 162. Digoxin level that was drawn last night around 10:20 in the evening was 2.1 which was several hours after administration of her last dose. ASSESSMENT AND PLAN: 1. Ms. Ray is a 80-year-old female who presented with atrial flutter with RVR in the setting of pericardial effusion that was likely inflammatory. She underwent placement of pericardial window that confirmed inflammatory nature of pericardial fluid. She has been on combination of Colchicine and prednisone. My recommendation would be to taper the prednisone down quite rapidly over the next few days and keep her on Colchicine only, potentially we can increase the dose or more. 2. The second problem which is the dominant problem at this point is atrial flutter with RVR. She is currently on combination of amiodarone 400 twice a day plus Digoxin plus metoprolol 100 twice a day and her heart rate is still not well rate controlled at least not consistently. Fortunately, we have not seen any problems with bradycardia but the rate is still tenuous. It was only yesterday that I made a decision to stick with administration of Digoxin so she will be on triple therapy. I think we can hold the dose this morning and start her on 0.125 mg daily starting tomorrow. I would continue the metoprolol and amiodarone. I do believe that it will lead to better rate control. If not, then I think we will have no other option than to entertain the possibility of BO cardioversion. She is anticoagulated with Xarelto at this point. 3. Cardiomyopathy. 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 She was quite hyperkalemic, that precluded the use of appropriate medications but it seems this issue has now resolved and consequently I think we can give her low dose BO inhibitor or ARB because her blood pressure is allowing it. I will continue following the patient with you.
--- NOTE | 2021-05-02 11:32 | IPN ---
PROGRESS NOTE DATE: 04/30/2021 SUBJECTIVE: Mrs. Ray was seen earlier this morning when she was sitting in the chair in no acute distress at rest, currently in the PCU. She denies any chest pain, shortness of breath, palpitations, orthopnea, and there is no report of syncope or near syncope. She is not coughing. There is no report of bleeding. She was seen earlier today by the cardiothoracic surgeon, Dr. Duncan. She complains of pedal edema and she stated earlier today she was feeling dizzy and lightheaded. OBJECTIVE: GENERAL: The patient is alert and oriented, in no acute distress at rest. VITAL SIGNS: Her vital signs when I saw her revealed a blood pressure of 141/69 with a pulse of 745, respirations 18, and maximum temperature is 97.9 degrees Fahrenheit, and oxygen saturation of 94% on room air. She has a negative fluid balance. HEAD: Atraumatic. NECK: Supple. No JVD appreciated. LUNGS: Lungs reveal no wheezing or crackles. CARDIAC EXAMINATION: Irregular heart sounds without gallops. The PMI is slightly displaced. There is no rub. ABDOMEN: Soft and nontender. EXTREMITIES: Bilateral lower legs with pedal edema. NEUROLOGIC: Grossly negative for focal deficits. LABORATORY DATA: BMP done today 04/30/2021 revealed a sodium of 134, potassium 4.4, chloride 98, CO2 36, BUN 31, creatinine 0.97, glucose 135, and calcium 7.5. Serum pro-BNP is 5,223. CBC done today revealed a WBC of 16.2, hemoglobin 12.2, hematocrit 37.7, and platelets 456,000. Serum digoxin today is 1.6. IMAGING: Chest x-ray done today 04/30/2021 revealed a small bilateral pleural effusion, left larger than the right, and this was compared with a prior study, pleural effusion has improved. Cardiomegaly noted. IMPRESSION: 1. Atrial fibrillation, persistent. Heart rate now is under control with beta gisell and Amiodarone and she will continue same. She will stay away for now from the digoxin. We need to address anticoagulation therapy, currently on preoperative dose of Lovenox. We probably can switch to her one a day NOACs starting 04/30/2021. 2. Hypertension. This seems to have improved and she will be monitored. She did complain of some lightheadedness today so I will avoid an BO inhibitor or ARB or Entresto at this present time. If her blood pressure remains stable, this will be revisited. 3. Hyperlipidemia, on a statin. 4. History of diabetes mellitus. 5. Cardiomegaly with a mildly left ventricular systolic function according to her echocardiogram done on 04/25/2021. 6. currently sees [facility] for her underlying cardiac condition. Case was discussed earlier today with the hospitalist. Dr. Miller will be seeing her tomorrow, 05/01/2021.
[2021-05-02 12:00] VITALS: BP 109/61
--- NOTE | 2021-05-02 12:03 | IPN ---
PROGRESS NOTE DATE: 04/29/2021 SUBJECTIVE: Mrs. Ray was seen yesterday in the ICU/PCU. She was in bed in no acute distress at rest. She stated she feels tired, but she denies any chest pain, shortness of breath, orthopnea, and there is no report of syncope or dizziness. There is no report of bleeding. Yesterday, she was in atrial fibrillation/flutter with a rapid heart rate and she was treated with IV digoxin. This morning, her heart rate has improved significantly, currently under control. OBJECTIVE: GENERAL: The patient is alert and oriented, in no acute distress at rest and very pleasant. VITAL SIGNS: Blood pressure 137/70 with a pulse of 75, respirations 18, maximum temperature was 98.3 degrees Fahrenheit, and oxygen saturation of 96% on room air. INTAKE AND OUTPUT: 1.9 liters. HEAD: Atraumatic. NECK: Supple. No JVD appreciated. LUNGS: Without any wheezing or crackles. HEART: Irregular heart sounds without gallops. The PMI is not displaced. There is no rub. ABDOMEN: Soft and nontender. EXTREMITIES: Trace bilateral ankle edema. NEUROLOGIC: Negative for focal deficits. LABORATORY DATA: CBC revealed a white count of 13.6, hemoglobin 11.9, hematocrit 37.0, and platelets 408,000. BMP revealed a sodium of 136, potassium 5.1, chloride 99, CO2 of 34, BUN 26, creatinine 0.77, GFR more than 60, fasting glucose 139, and calcium 7.6. IMAGING DATA: Chest x-ray on 04/29/2021, revealed a small bilateral pleural effusion left larger than the right, and borderline cardiomegaly. ASSESSMENT AND PLAN: Mrs. Nathaly Ray seems to be stable and her ventricular rate is now under control. She is on agent with metoprolol tartrate and I will increase it to 100 mg p.o. twice a day. She will continue with the amiodarone. We will hold the digoxin for now. Yesterday also, she was started on regular dose of IV Lasix and I will continue the same. We need to monitor closely her BUN, creatinine, and serum potassium. Her blood pressure is elevated and we will see how she responds to the higher dose of the metoprolol tartrate. Her echocardiogram on 04/22/2021, revealed LVEF estimated at 40% to 45% and she will be monitored for now. The case was discussed with her hospitalist.
--- NOTE | 2021-05-02 12:49 | IPNPDOC ---
Date Seen The patient was seen on 05/02/21. Progress Note SUBJECTIVE: This is hospital day 10 for this patient. Chest tubes were taken out on 04/27/2021. She was downgraded to the PCU with telemetry. The patient continues to be in atrial flutter, with rate in 140s this morning. Her rate was well-controlled last night after 0.25 mg digoxin administration at approximately 1830. The patient appears comfortable and her heart rate fluctuates down to 110s today. The patient reports that she is feeling better today. Pt reports some tingling in her feet, but states that this comes and goes and is a chronic ongoing problem, which the patient attributes to ongoing neurological spinal problems being managed in the outpatient setting. Patient reports that she is having good sleep, however, wakes up around 1 AM and finds it difficult to fall back asleep, she associates this with being in the unfamiliar setting of the hospital. OBJECTIVE PHYSICAL EXAMINATION: VITAL SIGNS: Please see below. GENERAL: Patient is in no acute distress, resting comfortably in bed. HEENT: Normocephalic, atraumatic, no scleral icterus, oral mucosa moist CARDIOVASCULAR: Regularly irregular rhythm, rate in the 110s, no murmurs, rubs or gallops appreciated. RESPIRATORY: bibasilar crackles, no W/R/R ABDOMINAL: Soft, nondistended, nontender, bowel sounds present. EXTREMITIES: Bilateral pedal edema still present, but has not progressed. No cyanosis or clubbing appreciated of the hands or feet. LE +5/5, pt able to wiggle toes without difficulty nor with associated worsening tingling sensation. NEUROLOGICAL: Good tone. PSYCHOLOGICAL: Pt was alert and cooperative on exam. LABORATORY DATA, IMAGING STUDIES, MICROBIOLOGY: Please see below. Echocardiogram: 04/22/2021 1. Study is of fair technical quality, underlying flutter with variable ventricular rate. 2. Normal LV size with moderate LVH, at least mild left ventricular systolic dysfunction, and no segmental wall motion abnormalities. 3. Aortic sclerosis with no stenosis and mild insufficiency. 4. Trace mitral and tricuspid insufficiency. 5. At least mildly elevated central venous pressure and [id number] pulmonary hypertension. 6. Moderate pericardial effusion without signs of cardiac compression. 7. Dilated aortic root (4.0 cm). Echocardiogram: 04/25/2021 No official reading on echocardiogram, but per Dr. Miller: "a 2-dimensional echocardiogram was obtained. It revealed approximately moderate size pericardial effusion but there were some early signs of cardiac compression, specifically there is a significant variation on both tricuspid and mitral in-flow velocities, there is also partial free right atrial wall collapse dependent on respiration. Additional findings, she now has significant LV systolic dysfunction. I estimate her EF around 20 to 25% and there are bilateral pleural effusions." Chest CT with [id number]/[address] resulted today showing: Moderate pericardial effusion measuring 1.5 cm in thickness. No evidence of pulmonary embolism. Small bilateral layering pleural effusions with overlying atelectasis versus infiltrates. Tiny opacities, apparently clustered in tree-in-bud distribution in the right upper lobe suggestive of endobronchial infection/inflammation. 5-6 mm right upper lung lobe nodule present. Dilated pulmonary trunk at 3.7 cm suggestive of pulmonary hypertension. Partially calcified plaque at the proximal left subclavian artery, resulting in 50-75% stenosis. Shotty likely reactive subcentimeter mediastinal lymph nodes seen in addition to a prominent right hilar lymph node at 1.8 X 1.5 centimeter. ASSESSMENT AND PLAN: This is a 80-year-old female with a past medical history significant for psoriatic arthritis being treated with Remicade infusions that started in December 2020. She presents for hospitalization due to progressive dyspnea, pericardial effusions, pleural effusions, and bilateral pedal edema. #Atrial flutter with rapid ventricular rate secondary to pericardial effusion vs heart failure exacerbation Patient presented with heart rate in the 150s and continued to have atrial flutter with rapid ventricular rate, despite Lopressor and amiodarone infusion in the ED. Dr. Miller was consulted, inpatient service team appreciates cardiology consult. Per Dr. Miller's recommendations: -This is likely secondary to pericardial effusion (etiology of pericardial effusion, not yet known, possibly secondary to Remicade treatment, which patient started for psoriatic arthritis in December 2020.) -Pericardial effusion was drained by Dr. Duncan on 04/25/2021. -Patient received 0.[address] Miller on 04/25/2021 after pericardial window was done by Dr. Duncan -Continue metoprolol tartrate 50 mg twice a day per Dr. Miller. -Continue amiodarone 400 mg twice a day -Continue Lasix administration to 20 mg IV BID. -Dr. Miller would like to start the patient on 0.125 mg digoxin daily starti ng 05/03/2021. -Xarelto started by Dr. Miller, 20mg. -Pt had wheezing prior to the pericardial window and Xopenex 2 puffs as needed was added. Please do not consider albuterol at this time due to the patient's ongoing tachycardia. -Dr. Adame started digoxin 0.25 mg due to another event of atrial flutter on 04/28/21. The fourth dose was held due to digoxin levels being high on 04/29/21. -Digoxin level on 04/30/21 was within normal limits, down to 1.6. Patient received 0.25 mg digoxin on 05/01/2021, 4 hours later, Digoxin level was 2.1 which is elevated, therefore we will hold digoxin for today. -Pt would like Dr. Miller to be her outpatient data warehouse specialist after discharge. #Oozing from chest tube site, likely secondary to full anticoagulation. -Dr. Duncan was consulted again on 04/29/21, inpatient service team appreciates Dr. Duncan's input. -Dr. Duncan placed a suture to stop the bleeding -There has been no more bleeding from the chest tube site. -Continue to monitor for continued bleeding. #Pericardial effusion status post pericardial window Etiology unknown at this time, considerations include history of psoriatic arthritis, Remicade administration, or neoplastic etiology. Patient has a history of psoriatic arthritis. Patient received Remicade beginning in December, which has a rare complication of pericardial effusions. The case was discussed over the phone with [employer] M[employer] Checker, Dr. Sierra Moreno, who recommended prednisone and colchicine administration upon patient's ad mission. Colchicine administration will be 0.3 mg daily (decreased dose) since the patient is also receiving amiodarone (amiodarone predisposes patient to colchicine toxicity.) Pericardial window has been done. After chest tubes had been taken out Dr. Duncan, with cardiothoracic surgery, recommended that the patient continue on colchicine and NSAIDs and be weaned off prednisone. Patient received 3 doses of 40 mg from April 23 through April 26. Patient will be weaned off steroids. Due to pleural effusions and pericardial effusions, consider 40 mg prednisone continued at this time to prevent rebound pericardial effusion. Pt will likely need a longer taper due to her pericardial effusion etiology likely being inflammatory. -Patient is currently receiving ramelteon daily at bedtime and she is tolerating this well, and has improved sleep. #Elevated troponin. Patient's troponin level of 0.04 (04/26/2021) is not significantly elevated from less than 0.02 on 04/22/2021, despite cardiac surgery on 04/25/2021, trending not considered at this time. If patient's chest pain presents again, consider trending troponin. #Tachycardia-induced Acute Systolic CHF in setting of h/o HFpEF -Echocardiogram on 04/25/2021, EF 20-25%, elevated JVD per Dr. Miller -this is likely induced by prolonged tachycardia. -Bilateral pleural effusions present on CT imaging 04/24/2021 -inpatient team appreciates Dr. Miller's recommendations summarized under "#Atrial flutter with rapid ventricular rate secondary to pericardial effusion vs heart failure exacerbation" PT/OT evaluation and subsequent treatment has been ordered for patient due to decrease in ejection fraction. #Hyponatremia, resolving. Dr. Miller suspects SIADH secretion in the setting of chest pressure resulting in hyponatremia on presentation. Patient has a history of heart failure, therefore normal saline was not started since sodium level was 121 and threshold in heart failure is treatment begins. If sodium level is less than 120, consider gentle hydration (gentle because patient has pericardial effusion and heart failure). Patient's sodium level is 135 today after receiving 1 L of normal saline on 04/25/[address] Duncan. Paraneoplastic etiology cannot be ruled out at this time. -Cortisol AM on 04/29/2021 was 8.8 and therefore within normal limits (taken since pt did not receive 40mg prednisone on one day, possible adrenal crisis sequelae, which it is not.). #Abnormal chest CT results Follow-up suggested for shotty likely reactive mediastinal lymph nodes prominent in the right hilar area. Outpatient follow-up CT chest recommended in 12 months due to finding of 5-6 mm nodule upper lung lobe. #Hypertensive heart failure Hold ASA at this time, pt had pericardial window done 04/26/2021. #Hypertension Lisinopril, home medication has been held by Dr. Miller, due to ongoing hyperkalemia. Dr. Miller's management of patient's hypertension is appreciated by inpatient service team. #Kht-ydiwbuh-qcwmbsygn diabetes mellitus type 2. Continue sliding scale insulin. Hold home medication of metformin at this time. Hypoglycemic protocol in place. 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 Continue home medication Gabapentin #History of dizziness. Continue home medication, Meclizine 12.5 mg DVT prophylaxis: Continue Xarelto 20mg daily for atrial flutter per Dr. Miller. DISPOSITION: Discharge is not likely within the next couple days as the pt continues to have elevated heart rate during intervals of changing position. Cardiology input appreciated. VS, I&O, 24H, Fishbone Vital Signs/I&O Vital Signs Date Time Temp Pulse Resp B/P (MAP) Pulse Ox O2 Delivery O2 Flow Rate FiO2 05/02/21 08:00 96.8 93 18 149/81 (103) 97 Room Air 04/28/21 20:00 1.0 I&O- Last 24 Hours up to 6 AM 05/02/21 06:00 Intake Total 360 ml Output Total 2125 ml Balance -1765 ml Laboratory Data 24H LABS Laboratory Tests 2 05/01/21 13:31: Bedside Glucose (Misc Panel) 162H 05/01/21 17:30: Bedside Glucose (Misc Panel) 290H 05/01/21 20:28: Bedside Glucose (Misc Panel) 230H 05/01/21 22:23: Digoxin Level 2.1H 05/02/21 05:35: Nucleated Red Blood Cells % (auto) 0.0, Anion Gap 1L, Glomerular Filtration Rate 59.1, Calcium Level 7.9L 05/02/21 12:32: Bedside Glucose (Misc Panel) 150H CBC/BMP Laboratory Tests 05/02/21 05:35 Microbiology Microbiology 04/25/21 Acid Fast Stain, Received Pending 04/25/21 Mycobacterial Culture, Received Pending 04/25/21 Fungal Smear, Received Pending 04/25/21 Fungal Culture, Received Pending 04/25/21 Gram Stain - Final, Complete 04/25/21 Body Fluid Culture - Final, Complete 04/25/21 Anaerobic Culture - Final, Complete 04/25/21 Acid Fast Stain, Received Pending 04/25/21 Mycobacterial Culture, Received Pending 04/25/21 Fungal Smear, Received Pending 04/25/21 Fungal Culture, Received Pending 04/25/21 Gram Stain - Final, Complete 04/25/21 Body Fluid Culture - Final, Complete 04/25/21 Anaerobic Culture - Final, Complete 04/25/21 Acid Fast Stain, Received Pending 04/25/21 Mycobacterial Culture, Received Pending 04/25/21 Fungal Smear, Received Pending 04/25/21 Fungal Culture, Received Pending 04/25/21 Gram Stain - Final, Complete 04/25/21 Body Fluid Culture - Final, Complete 04/25/21 Anaerobic Culture - Final, Complete 04/22/21 Respiratory Virus Panel (PCR) ([facility]) - Final, Complete GME ATTESTATION GME ATTESTATION My faculty preceptor for this patient encounter was physically present during the encounter and was fully available. All aspects of the patient interview, examination, medical decision making process, and medical care plan development were reviewed and approved by the faculty preceptor. The faculty preceptor is aware and concurs with the plan as stated in the body of this note and will attest to such by his/her cosignature. ATTENDING NOTE I, Nubia Hyde, have independently examined this patient and performed my own physical exam, as well as reviewed the documentation and edited where necessary. I have discussed in detail with the resident / student the findings and plan of treatment as documented by the resident / student and edited their note. I agree with their findings and treatment plan and have edited their documentation. I will continue to follow the patient during this hospital stay. Cheko Castellanos DO May 02, 2021 12:49 NUBIA HYDE MD May 02, 2021 13:57
[2021-05-02 15:55] VITALS: BP 144/68
[2021-05-02] MEDS: RIVAROXABAN 20 MG TAB (XARELTO) PO SCH (18:15)
[2021-05-02 20:00] VITALS: BP 110/71
[2021-05-02] MEDS: LOSARTAN 25 MG TAB PO SCH (20:18)
[2021-05-02] MEDS: TAFLUPROST OS SCH (20:19)
[2021-05-02] MEDS: RAMELTEON 8 MG TAB (ROZEREM) PO PRN (21:27)
[2021-05-03] VITALS: BP 109/56
[2021-05-03 04:00] VITALS: BP 116/61
[2021-05-03] MEDS: LEVOTHYROXINE 50MCG TABLET (0.05MG) PO SCH (05:54)
[2021-05-03 06:00] LABS: HEMATOCRIT 37.1 % (36.0-47.0); MEAN CORPUSCULAR HEMOGLOBIN 29.2 pg (27.0-33.0); MEAN CORPUSCULAR HGB CONC 32.3 g/dl (32.0-36.5); MEAN CORPUSCULAR VOLUME 90.3 fl (80.0-96.0); PLATELET COUNT, AUTOMATED 462 10^3/uL (150-450); RED BLOOD COUNT 4.11 10^6/uL (4.00-5.40); WHITE BLOOD COUNT 18.1 10^3/uL (4.0-10.0)
[2021-05-03 06:24] LABS: BLOOD UREA NITROGEN 23 MG/DL (7-18); CALCIUM LEVEL 8.1 MG/DL (8.8-10.2); CARBON DIOXIDE LEVEL 34 MEQ/L (21-32); CHLORIDE LEVEL 96 MEQ/L (98-107); CREATININE FOR GFR 0.91 MG/DL (0.55-1.30); GLOMERULAR FILTRATION RATE > 60.0 (>39); GLUCOSE, FASTING 131 MG/DL (70-100); POTASSIUM SERUM 4.3 MEQ/L (3.5-5.1); SODIUM LEVEL 134 MEQ/L (136-145)
[2021-05-03 08:00] VITALS: BP 140/63
--- NOTE | 2021-05-03 08:29 | REP ---
INDICATION: pericardial efusion COMPARISON: Multiple prior examinations TECHNIQUE: PA and lateral. FINDINGS: Lateral view suggests miniscule small posterior pleural reactions. The bilateral lung garica are otherwise well aerated and clear. No pneumothorax. Mediastinum and cardiac silhouette are within normal limits and stable. Skeletal structures are intact. IMPRESSION: No significant change. As above. <Electronically signed by Vito Haque > 05/03/21 [id number]
[2021-05-03 08:32] LABS: BASO % 0.2 % (0.0-1.0); EOS % 0.2 % (0.0-3.0); LYMPH # 4.6 10^3/uL (1.5-5.0); MONO % 8.8 % (2.0-8.0); NEUTROPHILS % 62.2 % (36.0-66.0)
[2021-05-03 08:40] LABS: C REACTIVE PROTEIN QUANTITATIV 0.45 MG/DL (0.00-0.30); DIGOXIN LEVEL 1.2 NG/ML (0.5-2.0)
--- NOTE | 2021-05-03 08:43 | IPN ---
PROGRESS NOTE DATE: 05/03/2021 SUBJECTIVE: Mrs. Ray tells me that she is feeling a little bit better but she had difficulty breathing last evening. She says from about 7 to 9 o'clock she really felt short of breath. Denies any chest pain. She has some occasional mild palpitations. The review of telemetry tracing indicates that her heart rate was reasonably well controlled throughout the day. When she sleeps, her heart rate is typically in the 60s, during the day in the 90s to 110 range but when she ambulates, her heart rate increases rapidly into the 140s. It turns out that when she was complaining of shortness of breath, her heart rate was about 140 for about two hours just before she got her evening medications. OBJECTIVE: At bedside, she is alert, oriented and appropriate. She is in no distress. Does not appear short of breath laying flat in a hospital bed. The last set of vital signs: Blood pressure 116/61, heart rate as above, afebrile, saturation 95% on room air. Her fluid balance yesterday was about 500 mL negative. Her weight is recorded at 79.45 kg. She is alert and oriented and appropriate. Her jugular venous pressure (JVP) is not high. Lungs sound reasonably clear. I do not appreciate wheezing, crackles or rhonchi. Heart exam reveals irregular rhythm without myke gallop, rub or murmur. Abdomen is soft, nontender. Her peripheral edema has resolved. Neurologically, she is intact. LABORATORY: CBC reveals WBC count 18.1, hemoglobin 12, hematocrit 37, platelet count 462,000. Basic metabolic panel: Sodium 134, potassium 4.3, BUN 23, creatinine0 .9 and glucose 131. ASSESSMENT AND PLAN: Mrs. Ray is a 80-year-old female who presented with pericardial effusion and atrial flutter with rapid ventricular response (RVR). She eventually underwent placement of pericardial window by Dr Choudhary. She is receiving colchicine and prednisone because the etiology of the effusion was inflammatory in nature. I do believe that it is time to start tapering the prednisone down. She is currently receiving 40 mg daily and I am going to change the dose to 30 mg. Colchicine should be continued for the foreseeable future. The second issue is the atrial flutter that has been very challenging to rate control and she is currently on amiodarone 400 twice a day, which will be continued for a few more days and then tapered down to 200 mg daily, digoxin, and metoprolol 100 twice a day. The rate is still not perfectly well controlled on this regimen but because the digoxin was introduced only a few days ago, I think it is reasonable to continue it in current form. As time goes, the amiodarone will become more and more powerful and I believe that it is likely that the rate will not be a problem within the next few days. As far as the dyspnea is concerned, she does have evidence of left ventricular (LV) dysfunction. 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 She has been receiving furosemide and I started an BO inhibitor last night which seems to have been well tolerated. I believe that she should be ready for discharge within a matter of a day or two. The question is whether she will need short-term rehab and I will leave it to the discretion of the attending physician.
--- NOTE | 2021-05-03 08:58 | IPNPDOC ---
Date Seen The patient was seen on 05/03/21. Progress Note SUBJECTIVE: This is hospital day 11 for this patient. Chest tubes were taken out on 04/27/2021. She was downgraded to the PCU with telemetry. The patient reports that she is feeling better today. Pt reports some tingling in her feet, but states that this comes and goes and is a chronic ongoing problem, which the patient attributes to ongoing neurological spinal problems being managed in the outpatient setting. Patient reports that she is having good sleep, however, wakes up around 1 AM and finds it difficult to fall back asleep, she associates this with being in the unfamiliar setting of the hospital. Dr. Miller has assessed the patient and recommends daily dose of digoxin 0.125 mg to be administered at this time. Pt's labs elicit leukocytosis this morning, however, patient continues to deny fevers, chills, night sweats, heart palpitations, chest pain, nausea, vomiting, diarrhea, constipation, and dysuria. Patient also denies feeling confused today. OBJECTIVE PHYSICAL EXAMINATION: VITAL SIGNS: Please see below. GENERAL: Patient is in no acute distress, resting comfortably in bed. HEENT: Normocephalic, atraumatic, no scleral icterus, oral mucosa moist CARDIOVASCULAR: Regularly irregular rhythm, rate in the 110s, no murmurs, rubs or gallops appreciated. RESPIRATORY: bibasilar crackles, no W/R/R ABDOMINAL: Soft, nondistended, nontender, bowel sounds present. EXTREMITIES: Bilateral pedal edema still present, but has not progressed. No cyanosis or clubbing appreciated of the hands or feet. LE +5/5, pt able to wiggle toes without difficulty nor with associated worsening tingling sensation. NEUROLOGICAL: Good tone. PSYCHOLOGICAL: Pt was alert and cooperative on exam, Alert and oriented 4. LABORATORY DATA, IMAGING STUDIES, MICROBIOLOGY: Please see below. Echocardiogram: 04/22/2021 1. Study is of fair technical quality, underlying flutter with variable ventricular rate. 2. Normal LV size with moderate LVH, at least mild left ventricular systolic dysfunction, and no segmental wall motion abnormalities. 3. Aortic sclerosis with no stenosis and mild insufficiency. 4. Trace mitral and tricuspid insufficiency. 5. At least mildly elevated central venous pressure and [id number] pulmonary hypertension. 6. Moderate pericardial effusion without signs of cardiac compression. 7. Dilated aortic root (4.0 cm). Echocardiogram: 04/25/2021 No official reading on echocardiogram, but per Dr. Miller: "a 2-dimensional echocardiogram was obtained. It revealed approximately moderate size pericardial effusion but there were some early signs of cardiac compression, specifically there is a significant variation on both tricuspid and mitral in-flow velocities, there is also partial free right atrial wall collapse dependent on respiration. Additional findings, she now has significant LV systolic dysfunction. I estimate her EF around 20 to 25% and there are bilateral pleural effusions." Chest CT with /07/[address] resulted today showing: Moderate pericardial effusion measuring 1.5 cm in thickness. No evidence of pulmonary embolism. Small bilateral layering pleural effusions with overlying atelectasis versus infiltrates. Tiny opacities, apparently clustered in tree-in-bud distribution in the right upper lobe suggestive of endobronchial infection/inflammation. 5-6 mm right upper lung lobe nodule present. Dilated pulmonary trunk at 3.7 cm suggestive of pulmonary hypertension. Partially calcified plaque at the proximal left subclavian artery, resulting in 50-75% stenosis. Shotty likely reactive subcentimeter mediastinal lymph nodes seen in addition to a prominent right hilar lymph node at 1.8 X 1.5 centimeter. ASSESSMENT AND PLAN: This is a 80-year-old female with a past medical history significant for psoriatic arthritis being treated with Remicade infusions that started in December 2020. She presents for hospitalization due to progressive dyspnea, pericardial effusions, pleural effusions, and bilateral pedal edema. #Atrial flutter with rapid ventricular rate secondary to pericardial effusion vs heart failure exacerbation Patient presented with heart rate in the 150s and continued to have atrial flutter with rapid ventricular rate, despite Lopressor and amiodarone infusion in the ED. Dr. Miller was consulted, inpatient service team appreciates cardiology consult. Per Dr. Miller's recommendations: -This is likely secondary to pericardial effusion (etiology of pericardial effusion, not yet known, possibly secondary to Remicade treatment, which patient started for psoriatic arthritis in December 2020.) -Pericardial effusion was drained by Dr. Duncan on 04/25/2021. -Patient received 0.[address] Miller on 04/25/2021 after pericardial window was done by Dr. Duncan -Continue metoprolol tartrate 50 mg twice a day per Dr. Miller. -Continue amiodarone 400 mg twice a day -Continue Lasix administration to 20 mg IV BID. -Dr. Miller would like to start the patient on 0.125 mg digoxin daily starting 05/03/2021. -Xarelto started by Dr. Miller, 20mg. -Pt had wheezing prior to the pericardial window and Xopenex 2 puffs as needed was added. Please do not consider albuterol at this time due to the patient's ongoing tachycardia. -Dr. Adame started digoxin 0.25 mg due to another event of atrial flutter on 04/28/21. The fourth dose was held due to digoxin levels being high on 04/29/21. -Digoxin level on 04/30/21 was within normal limits, down to 1.6. Patient received 0.25 mg digoxin on 05/01/2021. -Digoxin level is 1.2 05/03/21 AM, and being started on 0.125mg. -Pt would like Dr. Miller to be her outpatient bilingual receptionist after discharge. #Oozing from chest tube site, likely secondary to full anticoagulation. -Dr. Duncan was consulted again on 04/29/21, inpatient service team appreciates Dr. Duncan's input. -Dr. Duncan placed a suture to stop the bleeding -There has been no more bleeding from the chest tube site. -Continue to monitor for continued bleeding. #Leukocytosis. Patient has been getting high-dose prednisone at this time, this is likely secondary to that. Patient's review of systems is negative. -Procalcitonin negative -CRP improving UA ordered, follow-up on results. -No indications for antibiotics at this time #Pericardial effusion status post pericardial window Etiology unknown at this time, considerations include history of psoriatic arthritis, Remicade administration, or neoplastic etiology. Patient has a history of psoriatic arthritis. -CRP improving Patient received Remicade beginning in December, which has a rare complication of pericardial effusions. The case was discussed over the phone with Psychology Instructor, Dr. Sierra Moreno, who recommended prednisone and colchicine administration upon patient's admission. Colchicine administration will be 0.3 mg daily (decreased dose) since the patient is also receiving amiodarone (amiodarone predisposes patient to colchicine toxicity.) Pericardial window has been done. After chest tubes had been taken out Dr. Duncan, with cardiothoracic surgery, recommended that the patient continue on colchicine and NSAIDs and be weaned off prednisone. Patient received 8 doses of 40 mg since April 23. Patient will be weaned off steroids. Pt will likely need a longer taper due to her pericardial effusion etiology likely being inflammatory. Dr. Miller has started tapering the patient off of prednisone starting at, 30 mg by mouth today. -Patient is currently receiving ramelteon daily at bedtime and she is tolerating this well, and has improved sleep. #Elevated troponin. Patient's troponin level of 0.04 (04/26/2021) is not significantly elevated from less than 0.02 on 04/22/2021, despite cardiac surgery on 04/25/2021, trending not considered at this time. If patient's chest pain presents again, consider trending troponin. #Tachycardia-induced Acute Systolic CHF in setting of h/o HFpEF -Echocardiogram on 04/25/2021, EF 20-25%, elevated JVD per Dr. Miller -this is likely induced by prolonged tachycardia. -Bilateral pleural effusions present on CT imaging 04/24/2021 -inpatient team appreciates Dr. Miller's recommendations summarized under "#Atrial flutter with rapid ventricular rate secondary to pericardial effusion vs heart failure exacerbation" PT/OT evaluation and subsequent treatment has been ordered for patient due to decrease in ejection fraction. #Hyponatremia, resolving. Dr. Miller suspects SIADH secretion in the setting of chest pressure resulting in hyponatremia on presentation. Patient has a history of heart failure, therefore normal saline was not started since sodium level was 121 and threshold in heart failure is treatment begins. If sodium level is less than 120, consider gentle hydration (gentle because patient has pericardial effusion and heart failure). Patient's sodium level is 134 today after only receiving 1 L of normal saline on 04/25/[address] Duncan. Paraneoplastic etiology cannot be ruled out at this time. -Cortisol AM on 04/29/2021 was 8.8 and therefore within normal limits (taken since pt did not receive 40mg prednisone on one day, possible adrenal crisis sequelae, which it is not.). #Abnormal chest CT results Follow-up suggested for shotty likely reactive mediastinal lymph nodes prominent in the right hilar area. Outpatient follow-up CT chest recommended in months due to finding of 5-6 mm nodule upper lung lobe. #Hypertensive heart failure Hold ASA at this time, pt had pericardial window done 04/26/2021. #Hypertension Lisinopril, home medication has been held by Dr. Miller, due to ongoing hyperkalemia. Dr. Miller's management of patient's hypertension is appreciated by inpatient service team. #Ubc-[id number] diabetes mellitus type 2. Continue sliding scale insulin. Hold home medication of metformin at this time. Hypoglycemic protocol in place. 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 Continue home medication Gabapentin #History of dizziness. Continue home medication, Meclizine 12.5 mg DVT prophylaxis: Continue Xarelto 20mg daily for atrial flutter per Dr. Miller. DISPOSITION: Cardiology input appreciated, rate control on digoxin currently. PT recommends placement to rehabilitation after discharge. PFS input appreciated for placement. VS, I&O, 24H, Fishbone Vital Signs/I&O Vital Signs Date Time Temp Pulse Resp B/P (MAP) Pulse Ox O2 Delivery O2 Flow Rate FiO2 05/03/21 04:00 97.0 69 18 116/61 (79) 95 Room Air 04/28/21 20:00 1.0 I&O- Last 24 Hours up to 6 AM 05/03/21 06:00 Intake Total 1380 ml Output Total 2050 ml Balance -670 ml Laboratory Data 24H LABS Laboratory Tests 2 05/02/21 12:32: Bedside Glucose (Misc Panel) 150H 05/02/21 18:06: Bedside Glucose (Misc Panel) 227H 05/03/21 05:39: Nucleated Red Blood Cells % (auto) 0.0, Anion Gap 4L, Glomerular Filtration Rate > 60.0, Calcium Level 8.1L, C-Reactive Protein, Quantitative 0.45H, Digoxin Level 1.2 CBC/BMP Laboratory Tests 05/03/21 05:39 Microbiology Microbiology 04/25/21 Acid Fast Stain, Received Pending 04/25/21 Mycobacterial Culture, Received Pending 04/25/21 Fungal Smear, Received Pending 04/25/21 Fungal Culture, Received Pending 04/25/21 Gram Stain - Final, Complete 04/25/21 Body Fluid Culture - Final, Complete 04/25/21 Anaerobic Culture - Final, Complete 04/25/21 Acid Fast Stain, Received Pending 04/25/21 Mycobacterial Culture, Received Pending 04/25/21 Fungal Smear, Received Pending 04/25/21 Fungal Culture, Received Pending 04/25/21 Gram Stain - Final, Complete 04/25/21 Body Fluid Culture - Final, Complete 04/25/21 Anaerobic Culture - Final, Complete 04/25/21 Acid Fast Stain, Received Pending 04/25/21 Mycobacterial Culture, Received Pending 04/25/21 Fungal Smear, Received Pending 04/25/21 Fungal Culture, Received Pending 04/25/21 Gram Stain - Final, Complete 04/25/21 Body Fluid Culture - Final, Complete 04/25/21 Anaerobic Culture - Final, Complete GME ATTESTATION GME ATTESTATION My faculty preceptor for this patient encounter was physically present during the encounter and was fully available. All aspects of the patient interview, examination, medical decision making process, and medical care plan development were reviewed and approved by the faculty preceptor. The faculty preceptor is aware and concurs with the plan as stated in the body of this note and will attest to such by his/her cosignature. ATTENDING NOTE I, Nubia Hyde, have independently examined this patient and performed my own physical exam, as well as reviewed the documentation and edited where necessary. I have discussed in detail with the resident / student the findings and plan of treatment as documented by the resident / student and edited their note. I agree with their findings and treatment plan and have edited their documentation. I will continue to follow the patient during this hospital stay. Cheko Castellanos DO May 03, 2021 08:58 NUBIA HYDE MD May 03, 2021 11:06
[2021-05-03 09:13] LABS: MONO # 1.6 10^3/uL (0.0-0.8)
[2021-05-03] MEDS: MIRALAX *UNIT DOSE* 17GM PACKET PO SCH (09:15)
[2021-05-03] MEDS: PANTOPRAZOLE 40MG TAB (PROTONIX) PO SCH (09:16)
[2021-05-03] MEDS: predniSONE 10 MG TAB PO SCH (09:16)
[2021-05-03] MEDS: HumaLOG INSULIN (NovoLOG) PER UNIT SC SCH ×4 (09:16→21:00)
[2021-05-03] MEDS: DOCUSATE SODIUM 100MG CAPSULE PO SCH ×2 (09:17→21:46)
[2021-05-03] MEDS: ATORVASTATIN 10 MG TAB PO SCH (09:17)
[2021-05-03] MEDS: METOPROLOL TARTRATE 100 MG TAB PO SCH ×2 (09:17→21:46)
[2021-05-03] MEDS: FUROSEMIDE 20MG/2ML VIAL (J1940) IV SCH ×2 (09:18→17:42)
[2021-05-03] MEDS: DIGOXIN 0.125 MG TAB PO SCH (09:18)
[2021-05-03] MEDS: AMIODARONE 200 MG TAB (PACERONE) PO SCH ×2 (09:18→21:45)
[2021-05-03] MEDS: COMBIGAN OS SCH ×2 (09:19→21:46)
[2021-05-03 12:00] VITALS: BP 90/54
[2021-05-03] MEDS: COLCHICINE 0.6 MG TABLET PO SCH (12:35)
[2021-05-03 16:00] VITALS: BP 129/67
[2021-05-03] MEDS: RIVAROXABAN 20 MG TAB (XARELTO) PO SCH (17:44)
[2021-05-03 20:00] VITALS: BP 127/77
[2021-05-03] MEDS: LOSARTAN 25 MG TAB PO SCH (21:46)
[2021-05-03] MEDS: TAFLUPROST OS SCH (21:47)
[2021-05-04] VITALS: BP 96/53
[2021-05-04] MEDS: RAMELTEON 8 MG TAB (ROZEREM) PO PRN (00:23)
[2021-05-04 04:00] VITALS: BP 127/62
[2021-05-04] MEDS: LEVOTHYROXINE 50MCG TABLET (0.05MG) PO SCH (05:03)
[2021-05-04 05:35] LABS: HEMATOCRIT 37.7 % (36.0-47.0); HEMOGLOBIN 12.2 g/dl (12.0-15.5); MEAN CORPUSCULAR HEMOGLOBIN 29.5 pg (27.0-33.0); MEAN CORPUSCULAR HGB CONC 32.4 g/dl (32.0-36.5); MEAN CORPUSCULAR VOLUME 91.1 fl (80.0-96.0); PLATELET COUNT, AUTOMATED 478 10^3/uL (150-450); RED BLOOD COUNT 4.14 10^6/uL (4.00-5.40); WHITE BLOOD COUNT 16.1 10^3/uL (4.0-10.0)
[2021-05-04 06:01] LABS: CALCIUM LEVEL 8.2 MG/DL (8.8-10.2); CREATININE FOR GFR 1.02 MG/DL (0.55-1.30); GLOMERULAR FILTRATION RATE 55.7 (>39); POTASSIUM SERUM 4.4 MEQ/L (3.5-5.1)
[2021-05-04 07:18] VITALS: BP 118/57
[2021-05-04 08:18] LABS: DIGOXIN LEVEL 1.4 NG/ML (0.5-2.0)
--- NOTE | 2021-05-04 08:57 | REP ---
INDICATION: pericardial efusion COMPARISON: 05/03/2021 TECHNIQUE: PA and lateral. FINDINGS: The mediastinum and cardiac silhouette are stable and grossly within normal limits. The lung garcia are relatively stable/clear. No obvious focal consolidation. No definite effusion or pneumothorax. Skeletal structures are intact. IMPRESSION: Stable chest x-ray. No obvious acute cardiopulmonary process.. <Electronically signed by Vito Haque > 05/04/21 0853
[2021-05-04] MEDS: MIRALAX *UNIT DOSE* 17GM PACKET PO SCH (09:00)
--- NOTE | 2021-05-04 09:03 | IPN ---
PROGRESS NOTE DATE: 05/04/2021 SUBJECTIVE: Mrs. Ray tells me that she is feeling better. She did physical therapy yesterday and actually enjoyed it. She did not have any PND or orthopnea last night, also did not have any sensation of palpitations. Review of telemetry reveals ongoing atrial flutter. The rate is getting better even though she still has episodes of tachycardia usually before her next dose of beta gisell. PHYSICAL EXAMINATION: VITAL SIGNS: This morning, blood pressure 118/57, heart rate around 70. She is afebrile, saturation 95% on room air. Fluid balance yesterday was recorded as negative, almost a liter. Weight is recorded as 78.7 kilograms. GENERAL: She is alert, oriented and appropriate. NECK: Her JVP is not high. LUNGS: Clear, good air movement. The bases are still minimally diminished but not much. HEART: Reveals a regular rhythm. I do not appreciate gallop, rub or murmur. ABDOMEN: Soft and nontender. EXTREMITIES: She is free of peripheral edema. LABORATORY DATA: CBC: WBC count 16.1, hemoglobin 12.2, hematocrit 37, platelet count 478,000. Basic metabolic panel: Sodium 135, potassium 4.4, BUN 27, creatinine 1.0, glucose 122. ASSESSMENT AND PLAN: Mrs. Ray is a 81-year-old female who has a history of hypertensive heart disease and psoriatic arthritis who presented with pericardial effusion and atrial flutter with rapid ventricular response. The effusion required pericardial window placement by Dr. Duncan. She is currently still on colchicine and prednisone taper. I would suggest that she is tapered down relatively rapidly to at least 20 mg and then she can have prolonged course of lower doses. As far as atrial flutter is concerned, we have been struggling with rate control. Currently she is on amiodarone 400 twice a day plus metoprolol 100 twice a day plus digoxin. The rate is getting better even though she still has episodes of tachycardia. At this point, I would continue the medications essentially unchanged. She should be discharged on amiodarone only 200 mg daily because I am afraid if she stays in rehab for a prolonged period of time there will not be any adjustment made there. Otherwise I would continue the digoxin and metoprolol in the current dose. She is still receiving IV furosemide and that can be changed to 20 mg daily oral dose. Otherwise, I would not make any changes. She certainly needs to be chronically anticoagulated. I intend to see her in followup in approximately two weeks. Please call me if any other assistance is desired in the interim.
--- NOTE | 2021-05-04 09:10 | IPNPDOC ---
Date Seen The patient was seen on 05/04/21. Progress Note SUBJECTIVE: This is hospital day 12 for this patient. Chest tubes were taken out on 04/27/2021. She was downgraded to the PCU with telemetry. The patient reports that she is feeling better today. Pt reports some tingling in her feet, but states that this comes and goes and is a chronic ongoing problem, which the patient attributes to ongoing neurological spinal problems being managed in the outpatient setting. Patient reports that she is having good sleep, however, wakes up around 1 AM and finds it difficult to fall back asleep, she associates this with being in the unfamiliar setting of the hospital. Dr. Miller has assessed the patient and recommends daily dose of digoxin 0.125 mg to be administered at this time. Pt received her first 0.125 mg dose on 05/03/2021. Patient continues to deny fevers, chills, night sweats, heart palpitations, chest pain, nausea, vomiting, diarrhea, constipation, and dysuria. Patient also denies feeling confused today. OBJECTIVE PHYSICAL EXAMINATION: VITAL SIGNS: Please see below. GENERAL: Patient is in no acute distress, resting comfortably in bed. HEENT: Normocephalic, atraumatic, no scleral icterus, oral mucosa moist CARDIOVASCULAR: Regularly irregular rhythm, rate in the 80s, no murmurs, rubs or gallops appreciated. RESPIRATORY: bibasilar crackles, no W/R/R ABDOMINAL: Soft, nondistended, nontender, bowel sounds present. EXTREMITIES: Bilateral pedal edema still present, but decreased from admission. No cyanosis or clubbing appreciated of the hands or feet. LE +5/5, pt able to wiggle toes without difficulty nor with associated worsening tingling sensation. NEUROLOGICAL: Good tone. PSYCHOLOGICAL: Pt was alert and cooperative on exam, Alert and oriented 4. LABORATORY DATA, IMAGING STUDIES, MICROBIOLOGY: Please see below. Echocardiogram: 04/22/2021 1. Study is of fair technical quality, underlying flutter with variable ventricular rate. 2. Normal LV size with moderate LVH, at least mild left ventricular systolic dysfunction, and no segmental wall motion abnormalities. 3. Aortic sclerosis with no stenosis and mild insufficiency. 4. Trace mitral and tricuspid insufficiency. 5. At least mildly elevated central venous pressure and [id number] pulmonary hypertension. 6. Moderate pericardial effusion without signs of cardiac compression. 7. Dilated aortic root (4.0 cm). Echocardiogram: 04/25/2021 No official reading on echocardiogram, but per Dr. Miller: "a 2-dimensional echocardiogram was obtained. It revealed approximately moderate size pericardial effusion but there were some early signs of cardiac compression, specifically there is a significant variation on both tricuspid and mitral in-flow velocities, there is also partial free right atrial wall collapse dependent on respiration. Additional findings, she now has significant LV systolic dysfunction. I estimate her EF around 20 to 25% and there are bilateral pleural effusions." Chest CT with [id number]/[address] resulted today showing: Moderate pericardial effusion measuring 1.5 cm in thickness. No evidence of pulmonary embolism. Small bilateral layering pleural effusions with overlying atelectasis versus infiltrates. Tiny opacities, apparently clustered in tree-in-bud distribution in the right upper lobe suggestive of endobronchial infection/inflammation. 5-6 mm right upper lung lobe nodule present. Dilated pulmonary trunk at 3.7 cm suggestive of pulmonary hypertension. Partially calcified plaque at the proximal left subclavian artery, resulting in 50-75% stenosis. Shotty likely reactive subcentimeter mediastinal lymph nodes seen in addition to a prominent right hilar lymph node at 1.8 X 1.5 centimeter. ASSESSMENT AND PLAN: This is a 80-year-old female with a past medical history significant for psoriatic arthritis being treated with Remicade infusions that started in December 2020. She presents for hospitalization due to progressive dyspnea, pericardial effusions, pleural effusions, and bilateral pedal edema. #Atrial flutter with rapid ventricular rate secondary to pericardial effusion vs heart failure exacerbation Patient presented with heart rate in the 150s and continued to have atrial flutter with rapid ventricular rate, despite Lopressor and amiodarone infusion in the ED. Dr. Miller was consulted, inpatient service team appreciates cardiology consult. Per Dr. Miller's recommendations: -This is likely secondary to pericardial effusion (etiology of pericardial effusion, not yet known, possibly secondary to Remicade treatment, which patient started for psoriatic arthritis in December 2020.) -Pericardial effusion was drained by Dr. Duncan on 04/25/2021. -Patient received 0.[address] Miller on 04/25/2021 after pericardial window was done by Dr. Duncan -Continue metoprolol tartrate 50 mg twice a day per Dr. Miller. -Continue amiodarone 400 mg twice a day -Continue Lasix administration to 20 mg IV BID. -Daily administration of 0.125 mg digoxin starting 05/03/2021. -Xarelto started by Dr. Miller, 20mg. -Pt had wheezing prior to the pericardial window and Xopenex 2 puffs as needed was added. Please do not consider albuterol at this time due to the patient's ongoing tachycardia. -Dr. Adame started digoxin 0.25 mg due to another event of atrial flutter on 10/08. The fourth dose was held due to digoxin levels being high on 04/29/21. -Digoxin level on 04/30/21 was within normal limits, down to 1.6. Patient received 0.25 mg digoxin on 05/01/2021. -Digoxin level is 1.2 05/03/21 AM, and being started on 0.125mg. -Pt would like Dr. Miller to be her outpatient client reporting associate after discharge. #Oozing from chest tube site, likely secondary to full anticoagulation. -Dr. Duncan was consulted again on 04/29/21, inpatient service team appreciates Dr. Duncan's input. -Dr. Duncan placed a suture to stop the bleeding -There has been no more bleeding from the chest tube site. -Continue to monitor for continued bleeding. #Leukocytosis. Patient has been getting high-dose prednisone at this time, this is likely secondary to that. Patient's review of systems is negative. -Procalcitonin negative -CRP improving UA ordered, follow-up on results. -No indications for antibiotics at this time -Prednisone was reduced; will continue to reduce as appropriate - but will require prolonged taper #Pericardial effusion status post pericardial window Etiology unknown at this time, considerations include history of psoriatic arthritis, Remicade administration, or neoplastic etiology. Patient has a history of psoriatic arthritis. -CRP improving Patient received Remicade beginning in December, which has a rare complication of pericardial effusions. The case was discussed over the phone with [employer], Dr. Sierra Moreno, who recommended prednisone and colchicine administration upon patient's admission. Colchicine administration will be 0.3 mg daily (decreased dose) since the patient is also receiving amiodarone (amiodarone predisposes patient to colchicine toxicity.) Pericardial window has been done. After chest tubes had been taken out Dr. Duncan, with cardiothoracic surgery, recommended that the patient continue on colchicine and NSAIDs and be weaned off prednisone. Patient received 8 doses of 40 mg since April 23. Patient will be weaned off steroids. Pt will likely need a longer taper due to her pericardial effusion etiology likely being inflammatory. Dr. Miller has started tapering the patient off of prednisone starting at, 30 mg by mouth today. -Patient is currently receiving ramelteon daily at bedtime and she is tolerating this well, and has improved sleep. #Elevated troponin. Patient's troponin level of 0.04 (04/26/2021) is not significantly elevated from less than 0.02 on 04/22/2021, despite cardiac surgery on 04/25/2021, trending not considered at this time. If patient's chest pain presents again, consider trending troponin. #Tachycardia-induced Acute Systolic CHF in setting of h/o HFpEF -Echocardiogram on 04/25/2021, EF 20-25%, elevated JVD per Dr. Miller -this is likely induced by prolonged tachycardia. -Bilateral pleural effusions present on CT imaging 04/24/2021 -inpatient team appreciates Dr. Miller's recommendations summarized under "#Atrial flutter with rapid ventricular rate secondary to pericardial effusion vs heart failure exacerbation" PT/OT evaluation and subsequent treatment has been ordered for patient due to decrease in ejection fraction. #Hyponatremia, resolving. Dr. Miller suspects SIADH secretion in the setting of chest pressure resulting in hyponatremia on presentation. Patient has a history of heart failure, therefore normal saline was not started since sodium level was 121 and threshold in heart failure is treatment begins. If sodium level is less than 120, consider gentle hydration (gentle because patient has pericardial effusion and heart failure). Patient's sodium level is 134 today after only receiving 1 L of normal saline on 04/25/[address] Duncan. Paraneoplastic etiology cannot be ruled out at this time. -Cortisol AM on 04/29/2021 was 8.8 and therefore within normal limits (taken since pt did not receive 40mg prednisone on one day, possible adrenal crisis sequelae, which it is not.). #Abnormal chest CT results Follow-up suggested for shotty likely reactive mediastinal lymph nodes prominent in the right hilar area. Outpatient follow-up CT chest recommended in 12 months due to finding of 5-6 mm nodule upper lung lobe. #Hypertensive heart failure Hold ASA at this time, pt had pericardial window done 04/26/2021. #Hypertension Lisinopril, home medication has been held by Dr. Miller, due to ongoing hyperkalemia. Dr. Miller's management of patient's hypertension is appreciated by inpatient service team. #Wjc-[id number]-xasoyrdbz diabetes mellitus type 2. Continue sliding scale insulin. Hold home medication of metformin at this time. Hypoglycemic protocol in place. 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 Continue home medication Gabapentin #History of dizziness. Continue home medication, Meclizine 12.5 mg DVT prophylaxis: Continue Xarelto 20mg daily for atrial flutter per Dr. Miller. DISPOSITION: Cardiology input appreciated, rate control on digoxin currently. PT recommends placement to rehabilitation after discharge. PFS input appreciated for placement. VS, I&O, 24H, Replaced By [facility] Vital Signs/I&O Vital Signs Date Time Temp Pulse Resp B/P (MAP) Pulse Ox O2 Delivery O2 Flow Rate FiO2 05/04/21 07:18 97.2 68 18 118/57 (77) 95 Room Air 04/28/21 20:00 1.0 I&O- Last 24 Hours up to 6 AM 05/04/21 06:00 Intake Total 1510 ml Output Total 2550 ml Balance -1040 ml Laboratory Data 24H LABS Laboratory Tests 2 05/03/21 12:25: Bedside Glucose (Misc Panel) 162H 05/03/21 17:05: Bedside Glucose (Misc Panel) 203H 05/03/21 21:40: Bedside Glucose (Misc Panel) 229H 05/04/21 02:55: Urine Color YELLOW, Urine Appearance CLEAR, Urine pH 7.0, Urine Specific Abrams 1.011, Urine Protein NEGATIVE, Urine Glucose (UA) 2+H, Urine Ketones NEGATIVE, Urine Blood 1+H, Urine Nitrite NEGATIVE, Urine Bilirubin NEGATIVE, Urine Urobil inogen 0.2, Urine Leukocyte Esterase 1+H, Urine WBC (Auto) 10H, Urine RBC (Auto) 2, Urine Hyaline Casts (Auto) 0, Urine Bacteria (Auto) NEGATIVE, Urine Squamous Epithelial Cells 1, Urine Sperm (Auto) 6/17/21 05:13: Nucleated Red Blood Cells % (auto) 0.0, Anion Gap 4L, Glomerular Filtration Rate 55.7, Calcium Level 8.2L, Digoxin Level 1.4 CBC/BMP Laboratory Tests 05/04/21 05:13 Microbiology Microbiology 05/04/21 Urine Culture, Received Pending 04/25/21 Acid Fast Stain, Received Pending 04/25/21 Mycobacterial Culture, Received Pending 04/25/21 Fungal Smear, Received Pending 04/25/21 Fungal Culture, Received Pending 04/25/21 Gram Stain - Final, Complete 04/25/21 Body Fluid Culture - Final, Complete 04/25/21 Anaerobic Culture - Final, Complete 04/25/21 Acid Fast Stain, Received Pending 04/25/21 Mycobacterial Culture, Received Pending 04/25/21 Fungal Smear, Received Pending 04/25/21 Fungal Culture, Received Pending 04/25/21 Gram Stain - Final, Complete 04/25/21 Body Fluid Culture - Final, Complete 04/25/21 Anaerobic Culture - Final, Complete 04/25/21 Acid Fast Stain, Received Pending 04/25/21 Mycobacterial Culture, Received Pending 04/25/21 Fungal Smear, Received Pending 04/25/21 Fungal Culture, Received Pending 04/25/21 Gram Stain - Final, Complete 04/25/21 Body Fluid Culture - Final, Complete 04/25/21 Anaerobic Culture - Final, Complete GME ATTESTATION GME ATTESTATION My faculty preceptor for this patient encounter was physically present during the encounter and was fully available. All aspects of the patient interview, examination, medical decision making process, and medical care plan development were reviewed and approved by the faculty preceptor. The faculty preceptor is aware and concurs with the plan as stated in the body of this note and will attest to such by his/her cosignature. ATTENDING NOTE I, Nubia Hyde, have independently examined this patient and performed my own physical exam, as well as reviewed the documentation and edited where necessary. I have discussed in detail with the resident / student the findings and plan of treatment as documented by the resident / student and edited their note. I agree with their findings and treatment plan and have edited their documentation. I will continue to follow the patient during this hospital stay. Cheko Castellanos DO May 04, 2021 09:10 NUBIA HYDE MD May 04, 2021 11:54
[2021-05-04] MEDS: DOCUSATE SODIUM 100MG CAPSULE PO SCH ×2 (09:36→20:21)
[2021-05-04] MEDS: HumaLOG INSULIN (NovoLOG) PER UNIT SC SCH ×4 (09:36→20:16)
[2021-05-04] MEDS: COLCHICINE 0.6 MG TABLET PO SCH (09:37)
[2021-05-04] MEDS: AMIODARONE 200 MG TAB (PACERONE) PO SCH ×2 (09:37→20:22)
[2021-05-04] MEDS: ATORVASTATIN 10 MG TAB PO SCH (09:37)
[2021-05-04] MEDS: predniSONE 10 MG TAB PO SCH (09:37)
[2021-05-04] MEDS: DIGOXIN 0.125 MG TAB PO SCH (09:37)
[2021-05-04] MEDS: PANTOPRAZOLE 40MG TAB (PROTONIX) PO SCH (09:37)
[2021-05-04] MEDS: METOPROLOL TARTRATE 100 MG TAB PO SCH ×2 (09:37→20:22)
[2021-05-04] MEDS: COMBIGAN OS SCH ×2 (09:38→20:23)
[2021-05-04] MEDS: FUROSEMIDE 20MG/2ML VIAL (J1940) IV SCH ×2 (09:38→17:44)
[2021-05-04] MEDS: RIVAROXABAN 20 MG TAB (XARELTO) PO SCH (17:43)
[2021-05-04 20:00] VITALS: BP 123/64
[2021-05-04] MEDS: LOSARTAN 25 MG TAB PO SCH (20:22)
[2021-05-04] MEDS: TAFLUPROST OS SCH (20:23)
[2021-05-05] VITALS: BP 119/58
[2021-05-05 04:00] VITALS: BP 102/55
[2021-05-05] MEDS: LEVOTHYROXINE 50MCG TABLET (0.05MG) PO SCH (05:09)
[2021-05-05 05:45] LABS: HEMATOCRIT 39.7 % (36.0-47.0); MEAN CORPUSCULAR HEMOGLOBIN 30.1 pg (27.0-33.0); MEAN CORPUSCULAR HGB CONC 32.7 g/dl (32.0-36.5); MEAN CORPUSCULAR VOLUME 91.9 fl (80.0-96.0); PLATELET COUNT, AUTOMATED 518 10^3/uL (150-450); RED BLOOD COUNT 4.32 10^6/uL (4.00-5.40); WHITE BLOOD COUNT 17.6 10^3/uL (4.0-10.0)
[2021-05-05 07:37] VITALS: BP 122/61
--- NOTE | 2021-05-05 08:15 | REP ---
INDICATION: pericardial efusion COMPARISON: 05/04/2021 TECHNIQUE: PA and lateral. FINDINGS: The mediastinum and cardiac silhouette are normal. The lung garcia are clear and without acute consolidation, effusion, or pneumothorax. The skeletal structures are intact and normal. No obvious residual pericardial or pleural effusion. IMPRESSION: No acute cardiopulmonary process. <Electronically signed by Vito Haque > 05/05/21 0811
[2021-05-05] MEDS: MIRALAX *UNIT DOSE* 17GM PACKET PO SCH (08:24)
[2021-05-05] MEDS: DOCUSATE SODIUM 100MG CAPSULE PO SCH (08:24)
[2021-05-05] MEDS: FUROSEMIDE 20MG/2ML VIAL (J1940) IV SCH (08:35)
[2021-05-05] MEDS: HumaLOG INSULIN (NovoLOG) PER UNIT SC SCH ×2 (08:35→12:23)
[2021-05-05] MEDS: PANTOPRAZOLE 40MG TAB (PROTONIX) PO SCH (08:35)
[2021-05-05 08:37] VITALS: BP 122/61
[2021-05-05] MEDS: METOPROLOL TARTRATE 100 MG TAB PO SCH (08:37)
[2021-05-05] MEDS: AMIODARONE 200 MG TAB (PACERONE) PO SCH (08:38)
[2021-05-05] MEDS: ATORVASTATIN 10 MG TAB PO SCH (08:38)
[2021-05-05] MEDS: DIGOXIN 0.125 MG TAB PO SCH (08:38)
[2021-05-05 08:40] LABS: CALCIUM LEVEL 8.5 MG/DL (8.8-10.2); CREATININE FOR GFR 0.99 MG/DL (0.55-1.30); GLOMERULAR FILTRATION RATE 57.6 (>39); POTASSIUM SERUM 4.3 MEQ/L (3.5-5.1)
[2021-05-05] MEDS: COMBIGAN OS SCH (08:50)
[2021-05-05] MEDS: COLCHICINE 0.6 MG TABLET PO SCH (08:51)
[2021-05-05] MEDS ORDERED: LOPR1TAB7 PO (11:35)
[2021-05-05] MEDS ORDERED: AMIO200T3 PO (11:35)
[2021-05-05] MEDS ORDERED: DIGO0.123 PO (11:35)
[2021-05-05] MEDS ORDERED: COLC0.6T47 PO (11:35)
[2021-05-05] MEDS ORDERED: XARE20TA PO (11:35)
[2021-05-05] MEDS ORDERED: FURO20TA2 PO (11:38)
[2021-05-05] MEDS ORDERED: PRED20TA PO ×2 (11:40→12:02)
[2021-05-05] MEDS ORDERED: COZA1TAB PO (12:32)
--- NOTE | 2021-05-05 12:43 | DS.PDOC ---
Discharge Summary General Date of Admission Apr 22, 2021 at 14:30 Date of Discharge 05/05/2021 Discharge Summary PROCEDURES PERFORMED DURING STAY: Pericardial window, xiphoidectomy, and distal sternectomy by Dr. Duncan on 04/25/2021 ADMITTING DIAGNOSES / DISCHARGE DIAGNOSES: Atrial flutter with rapid ventricular rate - likely 2/2 pericardial effusion and heart failure exacerbation Leukocytosis - possibly 2/2 reactive 2/2 corticosteroids, less likely 2/2 infectious etiology Pericardial effusion s/p pericardial window - Possibly 2/2 psoriatic arthritis, Remicade administration, or neoplastic etiology Elevated troponin - likely 2/2 demand ischemia Tachycardia-induced Acute Systolic CHF in setting of h/o HFpEF s/p Hyponatremia Abnormal chest CT results Hypertensive heart failure HTN NIMDD2 Hypothyroidism Neuropathy Dizziness DVT prophylaxis COMPLICATIONS/CHIEF COMPLAINT: Shortness of breath / Chest pain HISTORY OF PRESENT ILLNESS: Patient is a 80-year-old female with a PMHx significant for newly diagnosed Type 2 DM, HTN, possible CHF, s/p loop recorder (per Rheumatology note, no date specified), and psoriatic arthritis presents with progressive dyspnea and chest discomfort with onset 4 days ago. The patient's dyspnea is worsened by exertion. 4 days ago (04/18/2021), the patient presented to her primary care clinic in [place], complaining of chest pain radiating into her le ft shoulder blade. At that time, the patient was diagnosed with diabetes and costochondritis. EKG, blood pressure, and O2 saturation were all within normal limits during this clinic visit. She was started on metformin 500 mg daily at that time. Upon presentation to the ER, the patient's systolic blood pressure was in the 130s and following Lopressor 5 mg administration, the systolic blood pressure decreased to 85. In the ER, the patient's received 5 mg of Lopressor after which the systolic blood pressure increased to 100. Dr. Miller was consulted and recommended amiodarone administration and Lovenox to be administered, per his recommendation. An amiodarone 100 mg slow infusion over two hours was started in the ED. The patient's heart rate remained in the 140s, with continued atrial flutter with RVR and his systolic blood pressure within the 100s during our medical examination. The patient reports that her health care proxy is her son, Donato Ray, to be contacted at [phone]. Initially, during this medical interview, the patient agreed to be DNR/DNI. However, when the most form was about to be signed. The [id number] was in the room and convince the patient to r econsider. Therefore, the patient is full code now. The patient also reports that she has increased her water intake to approximately 1 1/2 gallons per day. She reports feeling thirsty, however, also reports decreased appetite. She also states chronic history of dizziness and lightheadedness. She reports that she was referred to neurology where an MRI scan of the head was done. The diagnosis of stroke in her chart in the rheumatology clinic was likely secondary to MRI scanning findings. The patient does not report presenting with stroke symptoms to any medical facility. The patient also reports a history of numbness and tingling prompting an MRI spine scan prior to the diagnosis of psoriatic arthritis. It is difficult to elicit details of her neurological diagnoses and workup as the patient states that this was years ago and cannot remember her presenting symptoms and complaints. The jami nava states that she recently started to ambulate with a rolling walker due to feeling dizzy and lightheaded frequently. HOSPITAL COURSE: Atrial flutter with rapid ventricular rate - likely 2/2 pericardial effusion and heart failure exacerbation - Clinically patient has had improvement of her rate - She denies any chest pain, short of breath, palpitations - Currently patient's rate is well controlled - Digoxin level appropriate this morning - EKG reviewed - c/w Amiodarone, Digoxin and Metoprolol on discharge - Will have outpatient follow-up with Dr. Miller within the next 7 days Leukocytosis - possibly 2/2 reactive 2/2 corticosteroids, less likely 2/2 infectious etiology - Clinically review of systems has been negative for any source of infection - Patient has remained hemodynamically stable and afebrile - Pro-calcitonin negative - CRP has been trending down - UA without any definitive signs of infection - Urine culture 05/04: Negative - Cultures from pericardial and pleural spaces have all been negative - Will c/w Prednisone (See below) Pericardial effusion s/p pericardial window - Possibly 2/2 psoriatic arthritis, Remicade administration, or neoplastic etiology - Currently patient has had improvement - Inflammatory markers been improving - s/p Pericardial window by Dr. Duncan on 04/25/2021 - Case was initially discussed with manager local, Dr. Sierra Moreno; had giv en recommendations for prednisone and colchicine - c/w Colchicine; will c/w Prednisone 20mg on discharge - will require prolonged taper on discharge - Cardiology and Cardiothoracic surgery on consultation; appreciate their input - Will have outpatient follow-up with cardiothoracic surgery within the next 7 days Elevated troponin - likely 2/2 demand ischemia - Denies any chest pain - c/w Metoprolol, Losartan, Atorvastatin Tachycardia-induced Acute Systolic CHF in setting of h/o HFpEF - Clinically patient appears to be euvolemic - Echo noted below - c/w Diuresis - Cardiology on consultation; Will have outpatient follow-up within the next 7 days s/p Hyponatremia - Has improved and remained stable - c/w Diuresis Abnormal chest CT results - Will have outpatient follow-up with [facility] for repeat CT chest recommended in 12 months due to finding of 5-6 mm nodule upper lung lobe. Hypertensive heart failure HTN - BP well controlled - s/p Lisinopril (re: Hyperkalemia) - c/w Losartan 25 - c/w Metoprolol 100 NIMDD2 - c/w ISS while inpatient - Resume metformin on discharge Hypothyroidism - c/w Levothyroxine Neuropathy - c/w Gabapentin Dizziness - c/w Meclizine DVT prophylaxis - c/w Xarelto DISCHARGE MEDICATIONS: Please see below. ALLERGIES: Please see below. PHYSICAL EXAMINATION ON DISCHARGE: Vitals (See below) General: Lying in bed, no acute distress, comfortable, AAOx3 HEENT: NC, AT CVS: +S1S2 Lungs: Fair air entry b/l, no wheezing, rhonchi or rales Abdomen: Soft, ND, NT Extremities: - Edema, - Calf tenderness LABORATORY DATA: Please see below. IMAGING: Echocardiogram: 04/22/2021 1. Study is of fair technical quality, underlying flutter with variable ventricular rate. 2. Normal LV size with moderate LVH, at least mild left ventricular systolic dysfunction, and no segmental wall motion abnormalities. 3. Aortic sclerosis with no stenosis and mild insufficiency. 4. Trace mitral and tricuspid insufficiency. 5. At least mildly elevated central venous pressure and [id number] pulmonary hypertension. 6. Moderate pericardial effusion without signs of cardiac compression. 7. Dilated aortic root (4.0 cm). Echocardiogram: 04/25/2021 No official reading on echocardiogram, but per Dr. Millre: "a 2-dimensional echocardiogram was obtained. It revealed approximately moderate size pericardial effusion but there were some early signs of cardiac compression, specifically there is a significant variation on both tricuspid and mitral in-flow velocities, there is also partial free right atrial wall collapse dependent on respiration. Additional findings, she now has significant LV systolic dysfunction. I estimate her EF around 20 to 25% and there are bilateral pleural effusions." Chest CT with [id number]/07/[address] resulted today showing: Moderate pericardial effusion measuring 1.5 cm in thickness. No evidence of pulmonary embolism. Small bilateral layering pleural effusions with overlying atelectasis versus infiltrates. Tiny opacities, apparently clustered in tree-in-bud distribution in the right upper lobe suggestive of endobronchial infection/inflammation. 5-6 mm right upper lung lobe nodule present. Dilated pulmonary trunk at 3.7 cm suggestive of pulmonary hypertension. Partially calcified plaque at the proximal left subclavian artery, resulting in 50-75% stenosis. Shotty likely reactive subcentimeter mediastinal lymph nodes seen in addition to a prominent right hilar lymph node at 1.8 X 1.5 centimeter. ACTIVITY: [As tolerated]. DISCHARGE PLAN: Follow-up with primary care provider, cardiology, rheumatology within the next 7 days Remain compliant with treatment plan and medications Return to the ER if you experience any problems DISPOSITION: [facility] area rehabilitation DISCHARGE CONDITION: [Stable]. TIME SPENT ON DISCHARGE: 35 minutes. Vital Signs/I&Os Vital Signs Date Time Temp Pulse Resp B/P (MAP) Pulse Ox O2 Delivery O2 Flow Rate FiO2 05/05/21 08:38 92 05/05/21 08:37 122/61 05/05/21 07:37 97.0 18 98 Room Air I&O- Last 24 Hours up to 6 AM 05/05/21 05:59 Intake Total 960 ml Output Total 2250 ml Balance -1290 ml Laboratory Data Labs 24H Laboratory Tests 2 05/04/21 12:38: Bedside Glucose (Misc Panel) 157H 05/04/21 17:22: Bedside Glucose (Misc Panel) 229H 05/04/21 20:13: Bedside Glucose (Misc Panel) 242H 05/05/21 05:29: Nucleated Red Blood Cells % (auto) 0.0, Anion Gap 7L, Glomerular Filtration Rate 57.6, Calcium Level 8.5L 05/05/21 07:39: Bedside Glucose (Misc Panel) 210H 05/05/21 10:51: Coronavirus (COVID-19)(PCR) NEGATIVE 05/05/21 11:33: 05/05/21 12:17: Bedside Glucose (Misc Panel) 149H CBC/BMP Laboratory Tests 05/05/21 05:29 FSBS Laboratory Tests Test 05/04/21 12:38 05/04/21 17:22 05/04/21 20:13 05/05/21 07:39 Range/Units Bedside Glucose (Misc Panel) 157 229 242 210 83-110 MG/DL Test 05/05/21 12:17 Range/Units Bedside Glucose (Misc Panel) 149 83-110 MG/DL Microbiology Microbiology 05/04/21 Urine Culture - Final, Complete 04/25/21 Acid Fast Stain, Received Pending 04/25/21 Mycobacterial Culture, Received Pending 04/25/21 Fungal Smear, Received Pending 04/25/21 Fungal Culture, Received Pending 04/25/21 Gram Stain - Final, Complete 04/25/21 Body Fluid Culture - Final, Complete 04/25/21 Anaerobic Culture - Final, Complete 04/25/21 Acid Fast Stain, Received Pending 04/25/21 Mycobacterial Culture, Received Pending 04/25/21 Fungal Smear, Received Pending 04/25/21 Fungal Culture, Received Pending 04/25/21 Gram Stain - Final, Complete 04/25/21 Body Fluid Culture - Final, Complete 04/25/21 Anaerobic Culture - Final, Complete 04/25/21 Acid Fast Stain, Received Pending 04/25/21 Mycobacterial Culture, Received Pending 04/25/21 Fungal Smear, Received Pending 04/25/21 Fungal Culture, Received Pending 04/25/21 Gram Stain - Final, Complete 04/25/21 Body Fluid Culture - Final, Complete 04/25/21 Anaerobic Culture - Final, Complete Discharge Medications Scheduled Amiodarone HCl (Amiodarone HCl) 200 Mg Tablet, 200 MG PO DAILY Atorvastatin Calcium (Atorvastatin Calcium) 10 Mg Tab, 10 MG PO DAILY, (Reported) Brimonidine Tartrate/Timolol (Combigan 0.2%-0.5% Eye Drops) 5 Ml Drops, 1 DROP OS BID, (Reported) Colchicine (Colchicine) 0.6 Mg Tablet, 0.3 MG PO DAILY Digoxin (Digoxin) 125 Mcg Tablet, 0.125 MG PO DAILY Furosemide (Furosemide) 20 Mg Tablet, 1 TAB PO DAILY Gabapentin (Gabapentin) 300 Mg Capsule, 300 MG PO QHS, (Reported) Glucosamine/Chondroitin/C/Herbert (Glucosamine-Chondroitin Capsul) 1 Cap Cap, 2 CAP PO DAILY, (Reported) Levothyroxine Sodium (Levothyroxine Sodium) 50 Mcg Tab, 50 MCG PO DAILY, (Reported) Losartan Potassium (Cozaar) 25 Mg Tablet, 25 MG PO QHS Metformin HCl (Metformin HCl ER) 500 Mg Tab.er.24h, 500 MG PO QHS, (Reported) Metoprolol Tartrate (Lopressor) 100 Mg Tablet, 100 MG PO BID Prednisone (Prednisone) 20 Mg Tablet, 20 MG PO DAILY Rivaroxaban (Xarelto) 20 Mg Tablet, 20 MG PO DAILY@18 [Zioptan] , 1 DROP OS QPM, (Reported) Scheduled PRN Fluticasone Propionate (Flonase Allergy Relief) 50 Mcg/Act Spr, 2 SPRAY NARES DAILY PRN for CONGESTION, (Reported) Meclizine HCl (Meclizine HCl) 12.5 Mg Tab, 12.5 MG PO TID PRN for DIZZINESS, (Reported) Polyethylene Glycol 3350 (Polyethylene Glycol 3350) 510 Gm Powder, 17 GM PO DAILY PRN for CONSTIPATION, (Reported) Allergies Coded Allergies: No Known Allergies (Unverified , 09/24/18) CHRISTA POZO MD May 05, 2021 12:43
== END 2021-05-05 14:00 | DRG 270 ==
LOC: EDBD 08:23 → M ED 08:23 → ENRESERV 11:57 → M ED 14:20 → M ICU 14:30 → M PCU 04-29 16:45
PROVIDERS: ADMIT Family Medicine; ATTEND Internal Medicine
PROC: 0W9900Z Drainage of Right Pleural Cavity with Drainage Device, Open Approach (ICD-10-PCS; 2021-04-25)
PROC: 0W9D00Z Drainage of Pericardial Cavity with Drainage Device, Open Approach (ICD-10-PCS; principal; 2021-04-25 08:20)
DX: I31.3 Pericardial effusion (noninflammatory) (principal); I50.21 Acute systolic (congestive) heart failure; I48.92 Unspecified atrial flutter; E22.2 Syndrome of inappropriate secretion of antidiuretic hormone; D68.32 Hemorrhagic disorder due to extrinsic circulating anticoagulants; J90 Pleural effusion, not elsewhere classified; I48.19 Other persistent atrial fibrillation; I50.32 Chronic diastolic (congestive) heart failure; E11.40 Type 2 diabetes mellitus with diabetic neuropathy, unspecified; I31.4 Cardiac tamponade; I11.0 Hypertensive heart disease with heart failure; L40.50 Arthropathic psoriasis, unspecified; I65.23 Occlusion and stenosis of bilateral carotid arteries; I27.20 Pulmonary hypertension, unspecified; H40.9 Unspecified glaucoma; R91.1 Solitary pulmonary nodule; R42 Dizziness and giddiness; E87.6 Hypokalemia; R20.0 Anesthesia of skin; K59.00 Constipation, unspecified; I45.10 Unspecified right bundle-branch block; Z98.41 Cataract extraction status, right eye; Z98.42 Cataract extraction status, left eye; Z79.82 Long term (current) use of aspirin; Z79.84 Long term (current) use of oral hypoglycemic drugs; Z79.899 Other long term (current) drug therapy; Z87.891 Personal history of nicotine dependence; Z20.822 Contact with and (suspected) exposure to COVID-19

== ENCOUNTER → 2021-05-25 | Outpatient (CLI) | payer MEDICARE ==
[~2021-05-25] MED LIST changes: +ACUL0.5S; +AMIO200T3 PO; +AMLO1TAB25 PO; +ASPI81TA26 PO; +COLC0.6T47 PO; +COMB0.2S OS; +COZA1TAB PO; +DIGO0.123 PO; +FURO20TA2 PO; +GABA-282 PO; +LOPR1TAB7 PO; +METF-838 PO; +POLY510P14 PO; +PRED20TA PO; +XARE20TA PO; +ZIOPTAN OS
--- NOTE | 2021-05-25 10:25 | REP ---
INDICATION: PERICARDIAL EFFUSION COMPARISON: Multiple examinations dating through 04/27/2021 TECHNIQUE: PA and lateral. FINDINGS: The mediastinum and cardiac silhouette are grossly normal. The lung garcia are clear and without acute consolidation, effusion, or pneumothorax. The skeletal structures are intact and normal. IMPRESSION: No acute cardiopulmonary process. <Electronically signed by Vito Haque > 05/25/21 1022
== END ==
LOC: M PLAIMG 09:54
PROVIDERS: ATTEND Thoracic Surgery (Cardiothoracic Vascular Surgery)
DX: I31.3 Pericardial effusion (noninflammatory) (principal)

== ENCOUNTER → 2021-06-22 | Outpatient (REF) | payer MEDICARE ==
[2021-06-22 13:22] LABS: CHOLESTEROL RISK RATIO 5.472 (<5)
== END ==
LOC: M LABDRWAD 12:29
PROVIDERS: ATTEND Physician Assistant
DX: E78.5 Hyperlipidemia, unspecified (principal)

== ENCOUNTER → 2021-09-12 | Outpatient (REF) | payer MEDICARE ==
[2021-09-12 17:49] LABS: BASO # 0.1 10^3/uL (0.0-0.2); BASO % 0.6 % (0.0-1.0); EOS # 0.1 10^3/uL (0.0-0.5); EOS % 0.8 % (0.0-3.0); HEMATOCRIT 41.4 % (36.0-47.0); LYMPH # 1.9 10^3/uL (1.5-5.0); LYMPH % 22.8 % (24.0-44.0); MEAN CORPUSCULAR HEMOGLOBIN 29.2 pg (27.0-33.0); MEAN CORPUSCULAR HGB CONC 31.4 g/dl (32.0-36.5); MONO # 0.8 10^3/uL (0.0-0.8); MONO % 9.9 % (2.0-8.0); NEUTROPHILS # 5.6 10^3/uL (1.5-8.5); NEUTROPHILS % 65.4 % (36.0-66.0); PLATELET COUNT, AUTOMATED 396 10^3/uL (150-450); RED BLOOD COUNT 4.45 10^6/uL (4.00-5.40); WHITE BLOOD COUNT 8.5 10^3/uL (4.0-10.0)
[2021-09-12 18:53] LABS: ALBUMIN 3.4 GM/DL (3.2-5.2); BILIRUBIN,TOTAL 0.3 MG/DL (0.2-1.0); C REACTIVE PROTEIN QUANTITATIV 1.62 MG/DL (0.00-0.30); CALCIUM LEVEL 9.2 MG/DL (8.8-10.2); CREATININE FOR GFR 1.22 MG/DL (0.55-1.30); GLOMERULAR FILTRATION RATE 45.3 (>39); POTASSIUM SERUM 5.1 MEQ/L (3.5-5.1); TOTAL PROTEIN 6.9 GM/DL (6.4-8.2)
[2021-09-12 19:17] LABS: ERYTHROCYTE SEDIMENTATION RATE 41 mm/hr (0-30)
== END ==
LOC: M SFHCRHEU 13:30 → M SFHCADAM 13:39
PROVIDERS: ATTEND Internal Medicine Rheumatology
DX: L40.50 Arthropathic psoriasis, unspecified (principal)

== ENCOUNTER → 2021-09-12 | Outpatient (CLI) | payer MEDICARE ==
--- NOTE | 2021-09-12 16:07 | REP ---
INDICATION: PSORIATIC ARTHRITIS. COMPARISON: None. TECHNIQUE: Four views each foot FINDINGS: Right foot: Mild to moderate degenerative changes seen throughout the right foot. There is a type 1 os naviculare. There is no acute fracture. There is a plantar calcaneal heel spur Left foot: Mild to moderate degenerative changes seen throughout the left foot. There is a plantar calcaneal heel spur. There is a type 1 os naviculare. IMPRESSION: Chronic changes seen bilaterally. <Electronically signed by Nj Verdugo > 09/12/21 [id number]
--- NOTE | 2021-09-12 16:10 | REP ---
INDICATION: PSORIATIC ARTHRITIS. COMPARISON: None. TECHNIQUE: Four views each hand FINDINGS: Right hand: There is asymmetric intra digital joint space narrowing particularly affecting the interphalangeal joint of the 1st digit and the D IP joints of the 2nd and 3rd digits. There is marginal osteophytosis involving those joints. More moderate appearing joint space narrowing is seen involving all other joint spaces. Early marginal osteophytes are seen involving the heads of the 2nd through 4th metacarpals. There is no periarticular osteopenia. There are no marginal erosions. There is no acute fracture, dislocation, or subluxation. Degenerative changes seen throughout the right wrist. Left hand: There is moderate intra digital joint space narrowing particularly affecting the interphalangeal joint of the 1st digit and all D IP joints with there is slight marginal osteophytosis without periarticular osteopenia or marginal erosions. The left hand was obtained with partial digital flexion which limits the exam. There is no evidence of an acute fracture, dislocation, or subluxation. Degenerative changes seen throughout the left wrist. IMPRESSION: Chronic changes seen bilaterally as described above. <Electronically signed by Nj Verdugo > 09/12/21 [id number]
--- NOTE | 2021-09-12 16:47 | REP ---
INDICATION: PSORIATIC ARTHRITIS. COMPARISON: None. TECHNIQUE: Multiple views FINDINGS: There is evidence of mild sclerosis involving the iliac side of each sacroiliac joint. The SI joints are non fused. There is no prominent marginal osteophytosis. There are bilateral hip degenerative changes. IMPRESSION: Chronic changes as described above. <Electronically signed by Nj Verdugo > 09/12/21 2220
--- NOTE | 2021-09-12 16:50 | REP ---
INDICATION: PSORIATIC ARTHRITIS. COMPARISON: None. TECHNIQUE: Seven views FINDINGS: There is disc space narrowing which is [id number] at every level but seen particularly at the C5-6 level where anterior and posterior osteophytic ridging is the heaviest. The facet joints are well aligned bilaterally. Flexion and extension does not appear to be limited radiographically. Degenerative facet and uncovertebral joint changes are present at every level bilaterally. There is evidence of bilateral foraminal narrowing at C3-4 and left-sided foraminal narrowing at C5-6 and C6-7. IMPRESSION: Chronic changes as described above. <Electronically signed by Nj Verdugo > 09/12/21 2213
--- NOTE | 2021-09-12 16:51 | REP ---
INDICATION: PSORIATIC ARTHRITIS. COMPARISON: None TECHNIQUE: Seven views with bending views FINDINGS: There is mild posterior disc space narrowing at every level except at the L5-S1 level degenerative facet joint changes are present at every level bilaterally particularly L4-5 and L5-S1. The pedicles appear to be intact bilaterally. Flexion and extension bending views show no evidence of instability.. Vertebral body height and alignment is within normal limits. Moderate disc space narrowing is seen at L5-S1 with endplate sclerosis. IMPRESSION: Chronic changes as described above. <Electronically signed by Nj Verdugo > 09/12/21 [id number]
--- NOTE | 2021-09-12 16:52 | REP ---
INDICATION: PSORIATIC ARTHRITIS. COMPARISON: None. TECHNIQUE: AP and lateral views FINDINGS: There is mild to moderate marginal osteophyte formation seen along the right-side of the thoracic spine. Vertebral body height and alignment is within normal limits. There is mild anterior lipping and anterior disc space narrowing at every level. The pedicles are intact bilaterally. IMPRESSION: Chronic changes as described above. <Electronically signed by Nj Verdugo > 09/12/21 0031
== END ==
LOC: M ADAMS 13:32
PROVIDERS: ATTEND Internal Medicine Rheumatology
DX: L40.50 Arthropathic psoriasis, unspecified (principal); M25.78 Osteophyte, vertebrae; M51.37 Other intervertebral disc degeneration, lumbosacral region; M19.041 Primary osteoarthritis, right hand; M19.042 Primary osteoarthritis, left hand; M19.071 Primary osteoarthritis, right ankle and foot; M19.072 Primary osteoarthritis, left ankle and foot; M77.31 Calcaneal spur, right foot; M77.32 Calcaneal spur, left foot; M50.322 Other cervical disc degeneration at C5-C6 level

== ENCOUNTER → 2021-11-20 | Outpatient (CLI) | payer MEDICARE ==
--- NOTE | 2021-11-21 10:34 | DEXAMM ---
INDICATION: SCREEN OSTEO. COMPARISON: 09/05/2017 as well as other prior exams. TECHNIQUE: Bone density was measured using dual-energy x-ray absorptiometry (DEXA). FINDINGS: AP SPINE L1-L4 BMD 1.358 g/cm2 Young Adult T-Score 1.3 Age Matched Z-Score 3.1. LT FEMUR, TOTAL BMD 1.157 g/cm2 Young Adult T-Score 1.2 Age Matched Z-Score 3.2. LT NECK BMD 1.070 g/cm2 Young Adult T-Score 0.2 Age Matched Z-Score 2.4. RT FEMUR, TOTAL BMD 1.126 g/cm2 Young Adult T-Score 0.9 Age Matched Z-Score 2.9. RT NECK BMD 1.111 g/cm2 Young Adult T-Score 0.5 Age Matched Z-Score 2.6. IMPRESSION: There is normal bone density of the spine. There is normal bone density of the left hip. There is normal bone density of the right hip. The density of the spine has increased 16.4% since the initial exam on 06/10/2007. The density of the spine increased 8.2% since most recent exam on 09/05/2017. The density of the left hip has increased 1.6% since initial exam on 06/10/2007. The density of the left hip has increased 1.2% since most recent exam on 09/05/2017. FOLLOW-UP: Recommendation for the next bone density exam: 5 years. <Electronically signed by Garrick Skaggs > 11/21/21 [id number]
== END ==
LOC: M WHC 13:36
PROVIDERS: ATTEND Nurse Practitioner Family
DX: N95.9 Unspecified menopausal and perimenopausal disorder (principal)

== ENCOUNTER → 2021-11-25 | Outpatient (CLI) | payer MEDICARE ==
[~2021-11-25] MED LIST changes: -AMIO200T3 PO; +AMIO200T49 PO
== END ==
LOC: M LABSMTC 10:18
PROVIDERS: ATTEND Internal Medicine Cardiovascular Disease
DX: I48.3 Typical atrial flutter (principal); Z20.822 Contact with and (suspected) exposure to COVID-19

== ENCOUNTER → 2022-01-22 | Outpatient (REF) | payer MEDICARE ==
[2022-01-22 17:40] LABS: CREATININE FOR GFR 1.2 MG/DL (0.55-1.30); GLOMERULAR FILTRATION RATE 46.1 (>39); POTASSIUM SERUM 4.5 MEQ/L (3.5-5.1)
== END ==
LOC: M LABDRWAD 16:30
PROVIDERS: ATTEND Nurse Practitioner Family
DX: I10 Essential (primary) hypertension (principal)

== ENCOUNTER → 2022-01-25 | Outpatient (REF) | payer MEDICARE ==
[2022-01-25 17:30] LABS: CREATININE FOR GFR 1.44 MG/DL (0.55-1.30); GLOMERULAR FILTRATION RATE 37.4 (>39); POTASSIUM SERUM 4.3 MEQ/L (3.5-5.1)
== END ==
LOC: M LABDRWAD 16:14
PROVIDERS: ATTEND Physician Assistant
DX: I48.3 Typical atrial flutter (principal)

== ENCOUNTER → 2022-08-09 | Outpatient (CLI) | payer MEDICARE | LOC: M WHC 11:48 | PROVIDERS: ATTEND Physician Assistant | DX: I65.23 Occlusion and stenosis of bilateral carotid arteries (principal); I63.9 Cerebral infarction, unspecified ==

== ENCOUNTER → 2022-09-10 | Outpatient (REF) | payer MEDICARE ==
[2022-09-10 18:11] LABS: BASO # 0.1 10^3/uL (0.0-0.2); BASO % 0.8 % (0.0-1.0); EOS # 0.2 10^3/uL (0.0-0.5); EOS % 1.6 % (0.0-3.0); HEMATOCRIT 41.1 % (36.0-47.0); HEMOGLOBIN 12.9 g/dl (12.0-15.5); LYMPH # 2.6 10^3/uL (1.5-5.0); LYMPH % 25.3 % (24.0-44.0); MEAN CORPUSCULAR HEMOGLOBIN 30.5 pg (27.0-33.0); MEAN CORPUSCULAR HGB CONC 31.4 g/dl (32.0-36.5); MEAN CORPUSCULAR VOLUME 97.2 fl (80.0-96.0); MONO # 1.2 10^3/uL (0.0-0.8); MONO % 11.1 % (2.0-8.0); NEUTROPHILS # 6.3 10^3/uL (1.5-8.5); NEUTROPHILS % 60.8 % (36.0-66.0); PLATELET COUNT, AUTOMATED 355 10^3/uL (150-450); RED BLOOD COUNT 4.23 10^6/uL (4.00-5.40); WHITE BLOOD COUNT 10.4 10^3/uL (4.0-10.0)
[2022-09-10 18:53] LABS: ALBUMIN 3.4 GM/DL (3.2-5.2); BILIRUBIN,TOTAL 0.3 MG/DL (0.2-1.0); C REACTIVE PROTEIN QUANTITATIV 0.44 MG/DL (0.00-0.30); CALCIUM LEVEL 9.3 MG/DL (8.8-10.2); CREATININE FOR GFR 1.09 MG/DL (0.55-1.30); GLOMERULAR FILTRATION RATE 51.4 (>32); TOTAL PROTEIN 6.8 GM/DL (6.4-8.2)
[2022-09-10 19:09] LABS: ERYTHROCYTE SEDIMENTATION RATE 17 mm/hr (0-30)
== END ==
LOC: M SFHCADAM 13:37
PROVIDERS: ATTEND Internal Medicine Rheumatology
DX: L40.50 Arthropathic psoriasis, unspecified (principal); M15.9 Polyosteoarthritis, unspecified; E11.618 Type 2 diabetes mellitus with other diabetic arthropathy

== ENCOUNTER → 2022-10-19 | Outpatient (CLI) | payer MEDICARE | LOC: M PLAIMG 10:34 | PROVIDERS: ATTEND Nurse Practitioner Family | DX: D38.1 Neoplasm of uncertain behavior of trachea, bronchus and lung (principal) ==

== ENCOUNTER → 2023-07-24 | Outpatient (REF) | payer MEDICARE ==
[~2023-07-24] MED LIST changes: -COZA1TAB PO; +LOSA-527 PO
[2023-07-24 13:35] LABS: ALBUMIN 3.3 G/DL (3.2-5.2); ALKALINE PHOSPHATASE 73 U/L (46-116); ALT/SGPT 11 U/L (7.0-40); AST/SGOT 11 U/L (<34); BILIRUBIN,TOTAL 0.5 MG/DL (0.3-1.2); BLOOD UREA NITROGEN 17 MG/DL (9-23); CALCIUM LEVEL 8.8 MG/DL (8.3-10.6); CARBON DIOXIDE LEVEL 30 MMOL/L (20-31); CHLORIDE LEVEL 104 MMOL/L (98-107); GLOMERULAR FILTRATION RATE > 60.0 (>32); GLUCOSE, FASTING 122 MG/DL (74-106); POTASSIUM SERUM 4.5 MMOL/L (3.5-5.1); SODIUM LEVEL 139 MMOL/L (136-145); TOTAL PROTEIN 6.7 G/DL (5.7-8.2)
[2023-07-24 13:37] LABS: BASO # 0.1 10^3/uL (0.0-0.2); BASO % 0.8 % (0.0-1.0); EOS # 0.3 10^3/uL (0.0-0.5); EOS % 2.9 % (0.0-3.0); HEMATOCRIT 41.3 % (36.0-47.0); HEMOGLOBIN 12.9 g/dl (12.0-15.5); LYMPH # 2.1 10^3/uL (1.5-5.0); LYMPH % 23.1 % (24.0-44.0); MEAN CORPUSCULAR HEMOGLOBIN 29.7 pg (27.0-33.0); MEAN CORPUSCULAR HGB CONC 31.2 g/dl (32.0-36.5); MEAN CORPUSCULAR VOLUME 94.9 fl (80.0-96.0); MONO % 10.4 % (2.0-8.0); NEUTROPHILS # 5.7 10^3/uL (1.5-8.5); NEUTROPHILS % 62.3 % (36.0-66.0); PLATELET COUNT, AUTOMATED 412 10^3/uL (150-450); RED BLOOD COUNT 4.35 10^6/uL (4.00-5.40); WHITE BLOOD COUNT 9.2 10^3/uL (4.0-10.0)
[2023-07-24 14:24] LABS: ERYTHROCYTE SEDIMENTATION RATE 69 mm/hr (0-30)
== END ==
LOC: M SFHCADAM 08:39
PROVIDERS: ATTEND Internal Medicine Rheumatology
DX: L40.50 Arthropathic psoriasis, unspecified (principal); M15.9 Polyosteoarthritis, unspecified; E11.618 Type 2 diabetes mellitus with other diabetic arthropathy; L40.9 Psoriasis, unspecified

== ENCOUNTER → 2023-07-30 | Outpatient (REF) | payer MEDICARE | LOC: M SFHCRHEU 14:59 | PROVIDERS: ATTEND Internal Medicine Rheumatology | DX: L40.50 Arthropathic psoriasis, unspecified (principal); M15.9 Polyosteoarthritis, unspecified; E11.618 Type 2 diabetes mellitus with other diabetic arthropathy ==

== ENCOUNTER → 2023-10-08 | Outpatient (REF) | payer MEDICARE ==
[2023-10-08 19:15] LABS: BASO # 0.1 10^3/uL (0.0-0.2); BASO % 0.7 % (0.0-1.0); HEMATOCRIT 41.5 % (36.0-47.0); HEMOGLOBIN 12.9 g/dl (12.0-15.5); LYMPH # 3.1 10^3/uL (1.5-5.0); LYMPH % 29.8 % (24.0-44.0); MEAN CORPUSCULAR HEMOGLOBIN 29.8 pg (27.0-33.0); MEAN CORPUSCULAR HGB CONC 31.1 g/dl (32.0-36.5); MEAN CORPUSCULAR VOLUME 95.8 fl (80.0-96.0); MONO # 1.1 10^3/uL (0.0-0.8); MONO % 10.6 % (2.0-8.0); NEUTROPHILS # 6.2 10^3/uL (1.5-8.5); NEUTROPHILS % 58.4 % (36.0-66.0); PLATELET COUNT, AUTOMATED 365 10^3/uL (150-450); RED BLOOD COUNT 4.33 10^6/uL (4.00-5.40); WHITE BLOOD COUNT 10.5 10^3/uL (4.0-10.0)
[2023-10-08 19:21] LABS: ERYTHROCYTE SEDIMENTATION RATE 23 mm/hr (0-30)
[2023-10-08 19:41] LABS: C REACTIVE PROTEIN QUANTITATIV < 0.40 MG/DL (<1.0)
[2023-10-08 19:43] LABS: ALBUMIN 3.8 G/DL (3.2-5.2); ALKALINE PHOSPHATASE 62 U/L (46-116); ALT/SGPT 14 U/L (7.0-40); AST/SGOT 17 U/L (<34); BILIRUBIN,TOTAL 0.3 MG/DL (0.3-1.2); BLOOD UREA NITROGEN 18 MG/DL (9-23); CALCIUM LEVEL 9.3 MG/DL (8.3-10.6); CARBON DIOXIDE LEVEL 29 MMOL/L (20-31); CHLORIDE LEVEL 105 MMOL/L (98-107); CREATININE FOR GFR 0.93 MG/DL (0.55-1.30); GLOMERULAR FILTRATION RATE > 60.0 (>32); GLUCOSE, FASTING 93 MG/DL (74-106); POTASSIUM SERUM 4.4 MMOL/L (3.5-5.1); SODIUM LEVEL 138 MMOL/L (136-145); TOTAL PROTEIN 6.7 G/DL (5.7-8.2)
== END ==
LOC: M SFHCADAM 14:28
PROVIDERS: ATTEND Internal Medicine Rheumatology
DX: L40.50 Arthropathic psoriasis, unspecified (principal); M15.9 Polyosteoarthritis, unspecified; E11.618 Type 2 diabetes mellitus with other diabetic arthropathy

== ENCOUNTER → 2024-02-03 | Outpatient (REF) | payer MEDICARE ==
[2024-02-03 13:28] LABS: ALBUMIN 3.4 G/DL (3.2-5.2); ALKALINE PHOSPHATASE 61 U/L (46-116); ALT/SGPT 14 U/L (7.0-40); AST/SGOT 17 U/L (<34); BILIRUBIN,TOTAL 0.4 MG/DL (0.3-1.2); BLOOD UREA NITROGEN 18 MG/DL (9-23); CALCIUM LEVEL 8.4 MG/DL (8.3-10.6); CARBON DIOXIDE LEVEL 29 MMOL/L (20-31); CHLORIDE LEVEL 104 MMOL/L (98-107); CREATININE FOR GFR 0.84 MG/DL (0.55-1.30); GLOMERULAR FILTRATION RATE > 60.0 (>32); GLUCOSE, FASTING 137 MG/DL (74-106); POTASSIUM SERUM 4.4 MMOL/L (3.5-5.1); SODIUM LEVEL 138 MMOL/L (136-145); TOTAL PROTEIN 6.5 G/DL (5.7-8.2)
[2024-02-03 13:37] LABS: BASO % 0.5 % (0.0-1.0); EOS # 0.2 10^3/uL (0.0-0.5); EOS % 2.2 % (0.0-3.0); HEMATOCRIT 40.8 % (36.0-47.0); HEMOGLOBIN 12.5 g/dl (12.0-15.5); LYMPH # 2.2 10^3/uL (1.5-5.0); LYMPH % 25.1 % (24.0-44.0); MEAN CORPUSCULAR HEMOGLOBIN 29.4 pg (27.0-33.0); MEAN CORPUSCULAR HGB CONC 30.6 g/dl (32.0-36.5); MONO % 11.5 % (2.0-8.0); NEUTROPHILS # 5.3 10^3/uL (1.5-8.5); NEUTROPHILS % 60.4 % (36.0-66.0); PLATELET COUNT, AUTOMATED 381 10^3/uL (150-450); RED BLOOD COUNT 4.25 10^6/uL (4.00-5.40); WHITE BLOOD COUNT 8.7 10^3/uL (4.0-10.0)
[2024-02-03 13:49] LABS: ERYTHROCYTE SEDIMENTATION RATE 34 mm/hr (0-30)
== END ==
LOC: M LABDRWAD 12:25
PROVIDERS: ATTEND Internal Medicine Rheumatology
DX: L40.50 Arthropathic psoriasis, unspecified (principal); M15.9 Polyosteoarthritis, unspecified; E11.618 Type 2 diabetes mellitus with other diabetic arthropathy

== ENCOUNTER → 2024-02-03 | Outpatient (REF) | payer MEDICARE ==
[2024-02-03 13:32] LABS: CREATININE, URINE 127.8 MG/DL
[2024-02-03 13:34] LABS: MAU/CREAT RATIO 3.1 MCG/MG (0.0-30.0)
[2024-02-03 13:57] LABS: CHOLESTEROL RISK RATIO 3.46 (<5); HDL CHOLESTEROL 30.6 MG/DL (>40); LDL CHOLESTEROL 60.6 MG/DL (<100); NON-HDL-C 75.4 MG/DL
[2024-02-03 13:59] LABS: THYROID STIMULATING HORMONE 2.456 uIU/ML (0.55-4.78)
== END ==
LOC: M LABDRWAD 12:23
PROVIDERS: ATTEND Nurse Practitioner Family
DX: E03.9 Hypothyroidism, unspecified (principal); E11.9 Type 2 diabetes mellitus without complications

== ENCOUNTER → 2024-03-03 | Outpatient (CLI) | payer MEDICARE, MEDICAID | LOC: M RAD 02-19 11:24 | PROVIDERS: ATTEND Surgery Vascular Surgery | DX: I65.22 Occlusion and stenosis of left carotid artery (principal) ==

== ENCOUNTER → 2024-03-12 | Outpatient (REF) | payer MEDICARE ==
[2024-03-12 18:24] LABS: BASO % 0.5 % (0.0-1.0); EOS # 0.1 10^3/uL (0.0-0.5); EOS % 0.9 % (0.0-3.0); HEMATOCRIT 38.7 % (36.0-47.0); LYMPH # 1.4 10^3/uL (1.5-5.0); LYMPH % 16.2 % (24.0-44.0); MEAN CORPUSCULAR HEMOGLOBIN 30.1 pg (27.0-33.0); MONO # 0.7 10^3/uL (0.0-0.8); MONO % 8.5 % (2.0-8.0); NEUTROPHILS # 6.2 10^3/uL (1.5-8.5); NEUTROPHILS % 73.2 % (36.0-66.0); PLATELET COUNT, AUTOMATED 380 10^3/uL (150-450); RED BLOOD COUNT 3.99 10^6/uL (4.00-5.40); WHITE BLOOD COUNT 8.5 10^3/uL (4.0-10.0)
[2024-03-12 18:36] LABS: ERYTHROCYTE SEDIMENTATION RATE 26 mm/hr (0-30)
[2024-03-12 18:44] LABS: ALBUMIN 3.7 G/DL (3.2-5.2); ALKALINE PHOSPHATASE 66 U/L (46-116); ALT/SGPT < 9 U/L (7.0-40); AST/SGOT 14 U/L (<34); BILIRUBIN,TOTAL 0.4 MG/DL (0.3-1.2); BLOOD UREA NITROGEN 18 MG/DL (9-23); CALCIUM LEVEL 9.4 MG/DL (8.3-10.6); CARBON DIOXIDE LEVEL 31 MMOL/L (20-31); CHLORIDE LEVEL 98 MMOL/L (98-107); CREATININE FOR GFR 0.92 MG/DL (0.55-1.30); GLOMERULAR FILTRATION RATE > 60.0 (>32); SODIUM LEVEL 136 MMOL/L (136-145); TOTAL PROTEIN 6.8 G/DL (5.7-8.2)
[2024-03-12 18:52] LABS: GLUCOSE, FASTING 98 MG/DL (74-106)
== END ==
LOC: M SFHCADAM 14:59
PROVIDERS: ATTEND Internal Medicine Rheumatology
DX: L40.50 Arthropathic psoriasis, unspecified (principal); M15.9 Polyosteoarthritis, unspecified; E11.618 Type 2 diabetes mellitus with other diabetic arthropathy

== ENCOUNTER → 2024-06-09 | Outpatient (REF) | payer MEDICARE ==
[2024-06-09 13:51] LABS: BASO # 0.1 10^3/uL (0.0-0.2); BASO % 0.7 % (0.0-1.0); EOS # 0.3 10^3/uL (0.0-0.5); EOS % 3.1 % (0.0-3.0); LYMPH # 1.9 10^3/uL (1.5-5.0); LYMPH % 22.4 % (24.0-44.0); MEAN CORPUSCULAR HEMOGLOBIN 30.7 pg (27.0-33.0); MEAN CORPUSCULAR HGB CONC 31.7 g/dl (32.0-36.5); MEAN CORPUSCULAR VOLUME 96.9 fl (80.0-96.0); MONO # 1.1 10^3/uL (0.0-0.8); NEUTROPHILS % 60.4 % (36.0-66.0); PLATELET COUNT, AUTOMATED 370 10^3/uL (150-450); RED BLOOD COUNT 4.23 10^6/uL (4.00-5.40); WHITE BLOOD COUNT 8.3 10^3/uL (4.0-10.0)
[2024-06-09 14:03] LABS: ERYTHROCYTE SEDIMENTATION RATE 28 mm/hr (0-30)
[2024-06-09 14:21] LABS: C REACTIVE PROTEIN QUANTITATIV < 0.40 MG/DL (<1.0)
[2024-06-09 14:22] LABS: ALBUMIN 3.7 G/DL (3.2-5.2); ALKALINE PHOSPHATASE 64 U/L (46-116); ALT/SGPT 12 U/L (7.0-40); AST/SGOT 13 U/L (<34); BILIRUBIN,TOTAL 0.4 MG/DL (0.3-1.2); BLOOD UREA NITROGEN 16 MG/DL (9-23); CALCIUM LEVEL 9.5 MG/DL (8.3-10.6); CARBON DIOXIDE LEVEL 30 MMOL/L (20-31); CHLORIDE LEVEL 101 MMOL/L (98-107); GLOMERULAR FILTRATION RATE > 60.0 (>32); GLUCOSE, FASTING 104 MG/DL (74-106); POTASSIUM SERUM 5.3 MMOL/L (3.5-5.1); SODIUM LEVEL 135 MMOL/L (136-145); TOTAL PROTEIN 6.8 G/DL (5.7-8.2)
== END ==
LOC: M LABDRWAD 12:38
PROVIDERS: ATTEND Internal Medicine Rheumatology
DX: L40.50 Arthropathic psoriasis, unspecified (principal); M15.9 Polyosteoarthritis, unspecified

== ENCOUNTER → 2024-09-07 | Outpatient (REF) | payer MEDICARE, MEDICAID ==
[~2024-09-07] MED LIST changes: +GABA-1172 PO; -GABA-282 PO
[2024-09-07 13:49] LABS: BASO # 0.1 10^3/uL (0.0-0.2); BASO % 0.8 % (0.0-1.0); EOS # 0.2 10^3/uL (0.0-0.5); HEMATOCRIT 39.8 % (36.0-47.0); HEMOGLOBIN 12.3 g/dl (12.0-15.5); LYMPH # 1.7 10^3/uL (1.5-5.0); LYMPH % 22.4 % (24.0-44.0); MEAN CORPUSCULAR HEMOGLOBIN 29.9 pg (27.0-33.0); MEAN CORPUSCULAR HGB CONC 30.9 g/dl (32.0-36.5); MEAN CORPUSCULAR VOLUME 96.8 fl (80.0-96.0); MONO # 0.9 10^3/uL (0.0-0.8); NEUTROPHILS # 4.7 10^3/uL (1.5-8.5); NEUTROPHILS % 61.5 % (36.0-66.0); PLATELET COUNT, AUTOMATED 366 10^3/uL (150-450); RED BLOOD COUNT 4.11 10^6/uL (4.00-5.40); WHITE BLOOD COUNT 7.7 10^3/uL (4.0-10.0)
[2024-09-07 13:53] LABS: ALBUMIN 3.4 G/DL (3.2-5.2); ALKALINE PHOSPHATASE 78 U/L (46-116); ALT/SGPT 11 U/L (7.0-40); AST/SGOT 13 U/L (<34); BILIRUBIN,TOTAL 0.3 MG/DL (0.3-1.2); BLOOD UREA NITROGEN 18 MG/DL (9-23); CALCIUM LEVEL 9.6 MG/DL (8.3-10.6); CARBON DIOXIDE LEVEL 30 MMOL/L (20-31); CHLORIDE LEVEL 107 MMOL/L (98-107); CHOLESTEROL LEVEL 118 MG/DL (<200); CHOLESTEROL RISK RATIO 4.16 (<5); CREATININE FOR GFR 0.88 MG/DL (0.55-1.30); GLOMERULAR FILTRATION RATE > 60.0 (>32); GLUCOSE, FASTING 126 MG/DL (74-106); HDL CHOLESTEROL 28.3 MG/DL (>40); LDL CHOLESTEROL 68.7 MG/DL (<100); NON-HDL-C 89.7 MG/DL; POTASSIUM SERUM 4.7 MMOL/L (3.5-5.1); SODIUM LEVEL 141 MMOL/L (136-145); TOTAL PROTEIN 6.8 G/DL (5.7-8.2); TRIGLYCERIDES LEVEL 105 MG/DL (<150)
[2024-09-07 13:57] LABS: THYROID STIMULATING HORMONE 4.281 uIU/ML (0.55-4.78)
[2024-09-07 14:19] LABS: CREATININE, URINE 70.4 MG/DL; MALB URINE SIEMENS < 3.0 MG/L; MAU/CREAT RATIO 4.2 MCG/MG (0.0-30.0)
== END ==
LOC: M LABDRWAD 12:49
PROVIDERS: ATTEND Nurse Practitioner Family
DX: E11.9 Type 2 diabetes mellitus without complications (principal)

== ENCOUNTER → 2024-10-20 | Outpatient (REF) | payer MEDICARE, MEDICAID ==
[2024-10-20 17:48] LABS: BASO # 0.1 10^3/uL (0.0-0.2); BASO % 0.8 % (0.0-1.0); EOS # 0.4 10^3/uL (0.0-0.5); EOS % 3.9 % (0.0-3.0); HEMATOCRIT 41.5 % (36.0-47.0); LYMPH # 2.7 10^3/uL (1.5-5.0); LYMPH % 27.5 % (24.0-44.0); MEAN CORPUSCULAR HEMOGLOBIN 30.1 pg (27.0-33.0); MEAN CORPUSCULAR HGB CONC 31.3 g/dl (32.0-36.5); MEAN CORPUSCULAR VOLUME 96.1 fl (80.0-96.0); MONO # 1.2 10^3/uL (0.0-0.8); MONO % 12.2 % (2.0-8.0); NEUTROPHILS # 5.3 10^3/uL (1.5-8.5); NEUTROPHILS % 55.1 % (36.0-66.0); PLATELET COUNT, AUTOMATED 383 10^3/uL (150-450); RED BLOOD COUNT 4.32 10^6/uL (4.00-5.40); WHITE BLOOD COUNT 9.6 10^3/uL (4.0-10.0)
[2024-10-20 18:01] LABS: ERYTHROCYTE SEDIMENTATION RATE 30 mm/hr (0-30)
[2024-10-20 18:17] LABS: ALBUMIN 3.7 G/DL (3.2-5.2); ALKALINE PHOSPHATASE 80 U/L (35-104); ALT/SGPT 13 U/L (7.0-40); AST/SGOT 16 U/L (<34); BILIRUBIN,TOTAL 0.3 MG/DL (0.3-1.2); BLOOD UREA NITROGEN 20 MG/DL (9-23); C REACTIVE PROTEIN QUANTITATIV < 0.50 MG/DL (<1.0); CALCIUM LEVEL 9.4 MG/DL (8.3-10.6); CARBON DIOXIDE LEVEL 31 MMOL/L (20-31); CHLORIDE LEVEL 105 MMOL/L (98-107); CREATININE FOR GFR 0.84 MG/DL (0.55-1.30); GLOMERULAR FILTRATION RATE > 60.0 (>32); GLUCOSE, FASTING 102 MG/DL (74-106); POTASSIUM SERUM 4.9 MMOL/L (3.5-5.1); SODIUM LEVEL 140 MMOL/L (136-145); TOTAL PROTEIN 7.2 G/DL (5.7-8.2)
== END ==
LOC: M SFHCADAM 14:01
PROVIDERS: ATTEND Internal Medicine Rheumatology
DX: L40.50 Arthropathic psoriasis, unspecified (principal)

== ENCOUNTER → 2025-01-28 | Outpatient (REF) | payer MEDICARE, MEDICAID ==
[2025-01-28 19:11] LABS: BASO # 0.1 10^3/uL (0.0-0.2); BASO % 0.7 % (0.0-1.0); EOS # 0.2 10^3/uL (0.0-0.5); EOS % 2.5 % (0.0-3.0); HEMOGLOBIN 12.2 g/dl (12.0-15.5); LYMPH # 2.3 10^3/uL (1.5-5.0); LYMPH % 26.6 % (24.0-44.0); MEAN CORPUSCULAR HEMOGLOBIN 29.3 pg (27.0-33.0); MEAN CORPUSCULAR HGB CONC 30.5 g/dl (32.0-36.5); MEAN CORPUSCULAR VOLUME 95.9 fl (80.0-96.0); MONO # 1.1 10^3/uL (0.0-0.8); MONO % 12.2 % (2.0-8.0); NEUTROPHILS % 57.5 % (36.0-66.0); PLATELET COUNT, AUTOMATED 455 10^3/uL (150-450); RED BLOOD COUNT 4.17 10^6/uL (4.00-5.40); WHITE BLOOD COUNT 8.7 10^3/uL (4.0-10.0)
[2025-01-28 19:12] LABS: C REACTIVE PROTEIN QUANTITATIV 1.37 MG/DL (<1.0)
[2025-01-28 19:13] LABS: ALBUMIN 3.6 G/DL (3.2-5.2); ALKALINE PHOSPHATASE 67 U/L (35-104); ALT/SGPT 13 U/L (7.0-40); AST/SGOT 15 U/L (<34); BILIRUBIN,TOTAL 0.3 MG/DL (0.3-1.2); BLOOD UREA NITROGEN 21 MG/DL (9-23); CALCIUM LEVEL 8.8 MG/DL (8.3-10.6); CARBON DIOXIDE LEVEL 29 MMOL/L (20-31); CHLORIDE LEVEL 103 MMOL/L (98-107); CREATININE FOR GFR 0.91 MG/DL (0.55-1.30); GLOMERULAR FILTRATION RATE > 60.0 (>32); GLUCOSE, FASTING 119 MG/DL (74-106); POTASSIUM SERUM 4.5 MMOL/L (3.5-5.1); SODIUM LEVEL 139 MMOL/L (136-145); TOTAL PROTEIN 7.1 G/DL (5.7-8.2)
[2025-01-28 19:24] LABS: ERYTHROCYTE SEDIMENTATION RATE 44 mm/hr (0-30)
== END ==
LOC: M SFHCADAM 17:29
PROVIDERS: ATTEND Internal Medicine Rheumatology
DX: L40.50 Arthropathic psoriasis, unspecified (principal)

== ENCOUNTER → 2025-03-04 | Outpatient (CLI) | payer OTHER, MEDICAID | LOC: M RAD 13:08 | PROVIDERS: ATTEND Physician Assistant | DX: I65.23 Occlusion and stenosis of bilateral carotid arteries (principal) ==

== ENCOUNTER → 2025-03-16 | Outpatient (REF) | payer OTHER, MEDICAID ==
[2025-03-16 14:07] LABS: BASO # 0.1 10^3/uL (0.0-0.2); BASO % 0.6 % (0.0-1.0); EOS # 0.2 10^3/uL (0.0-0.5); HEMATOCRIT 35.4 % (36.0-47.0); HEMOGLOBIN 11.1 g/dl (12.0-15.5); LYMPH # 2.2 10^3/uL (1.5-5.0); LYMPH % 23.1 % (24.0-44.0); MEAN CORPUSCULAR HEMOGLOBIN 29.5 pg (27.0-33.0); MEAN CORPUSCULAR HGB CONC 31.4 g/dl (32.0-36.5); MEAN CORPUSCULAR VOLUME 94.1 fl (80.0-96.0); MONO # 1.1 10^3/uL (0.0-0.8); MONO % 11.1 % (2.0-8.0); NEUTROPHILS # 6.1 10^3/uL (1.5-8.5); NEUTROPHILS % 62.7 % (36.0-66.0); PLATELET COUNT, AUTOMATED 485 10^3/uL (150-450); RED BLOOD COUNT 3.76 10^6/uL (4.00-5.40); WHITE BLOOD COUNT 9.7 10^3/uL (4.0-10.0)
[2025-03-16 14:15] LABS: ERYTHROCYTE SEDIMENTATION RATE 47 mm/hr (0-30)
[2025-03-16 14:31] LABS: ALBUMIN 3.5 G/DL (3.2-5.2); BILIRUBIN,TOTAL 0.4 MG/DL (0.3-1.2); C REACTIVE PROTEIN QUANTITATIV 1.49 MG/DL (<1.0); CALCIUM LEVEL 8.9 MG/DL (8.3-10.6); CREATININE FOR GFR 0.86 MG/DL (0.55-1.30); GLOMERULAR FILTRATION RATE 67.4 (>32); TOTAL PROTEIN 6.6 G/DL (5.7-8.2)
== END ==
LOC: M SFHCADAM 08:22
PROVIDERS: ATTEND Internal Medicine Rheumatology
DX: L40.50 Arthropathic psoriasis, unspecified (principal)

== ENCOUNTER → 2025-03-16 | Outpatient (CLI) | payer OTHER, MEDICAID ==
[2025-03-16 14:07] LABS: BASO # 0.1 10^3/uL (0.0-0.2); BASO % 0.6 % (0.0-1.0); EOS # 0.2 10^3/uL (0.0-0.5); HEMATOCRIT 36.4 % (36.0-47.0); HEMOGLOBIN 11.1 g/dl (12.0-15.5); LYMPH # 2.2 10^3/uL (1.5-5.0); LYMPH % 22.8 % (24.0-44.0); MEAN CORPUSCULAR HEMOGLOBIN 29.1 pg (27.0-33.0); MEAN CORPUSCULAR HGB CONC 30.5 g/dl (32.0-36.5); MEAN CORPUSCULAR VOLUME 95.3 fl (80.0-96.0); MONO # 1.1 10^3/uL (0.0-0.8); NEUTROPHILS # 6.1 10^3/uL (1.5-8.5); PLATELET COUNT, AUTOMATED 483 10^3/uL (150-450); RED BLOOD COUNT 3.82 10^6/uL (4.00-5.40); WHITE BLOOD COUNT 9.6 10^3/uL (4.0-10.0)
[2025-03-16 14:08] LABS: APPEARANCE, URINE CLOUDY (CLEAR); BACTERIA, URINE AUTO 2+ (NEGATIVE); BILIRUBIN, URINE AUTO NEGATIVE (NEGATIVE); BLOOD, URINE BLOOD NEGATIVE (NEGATIVE); COLOR, URINE AMBER (YELLOW); GLUCOSE, URINE (UA) AUTO NEGATIVE (NEGATIVE); KETONE, URINE AUTO NEGATIVE (NEGATIVE); LEUKOCYTE ESTERASE, URINE AUTO 3+ (NEGATIVE); MUCUS, URINE SMALL (NEGATIVE); NITRITE, URINE AUTO NEGATIVE (NEGATIVE); PROTEIN, URINE AUTO NEGATIVE (NEGATIVE); RBC, URINE AUTO 19 /HPF (0-3); SPECIFIC GRAVITY URINE AUTO 1.017 (1.002-1.035); SQUAMOUS EPITHELIAL CELL UR AU 25 /HPF (0-6); UROBILINOGEN, URINE AUTO 0.2 mg/dL (0.0-2.0); WBC, URINE AUTO 142 /HPF (0-3)
[2025-03-16 14:34] LABS: PERCENT SATURATION 25.6 % (13.2-45.0)
[2025-03-16 14:35] LABS: ALBUMIN 3.5 G/DL (3.2-5.2); BILIRUBIN,TOTAL 0.4 MG/DL (0.3-1.2); CHOLESTEROL RISK RATIO 3.42 (<5); CREATININE FOR GFR 0.86 MG/DL (0.55-1.30); FERRITIN 125.8 NG/ML (7.3-270.7); FOLATE 10.45 NG/ML (>5.4); GLOMERULAR FILTRATION RATE 67.4 (>32); HDL CHOLESTEROL 35.3 MG/DL (>40); LDL CHOLESTEROL 68.7 MG/DL (<100); NON-HDL-C 85.7 MG/DL; POTASSIUM SERUM 4.9 MMOL/L (3.5-5.1); THYROID STIMULATING HORMONE 3.328 uIU/ML (0.55-4.78); TOTAL PROTEIN 6.6 G/DL (5.7-8.2)
== END ==
LOC: M ADAMS 08:25
PROVIDERS: ATTEND Nurse Practitioner Family
DX: E11.9 Type 2 diabetes mellitus without complications (principal); I10 Essential (primary) hypertension; I48.91 Unspecified atrial fibrillation; E78.5 Hyperlipidemia, unspecified; E03.9 Hypothyroidism, unspecified

== ENCOUNTER → 2025-04-06 | Outpatient (CLI) | payer OTHER, MEDICAID | LOC: M WHC 12:37 | PROVIDERS: ATTEND Nurse Practitioner Family | DX: Z13.820 Encounter for screening for osteoporosis (principal); N95.9 Unspecified menopausal and perimenopausal disorder ==

== ENCOUNTER → 2025-05-20 | Outpatient (CLI) | payer OTHER, MEDICAID ==
[~2025-05-20] MED LIST changes: -AMIO200T49 PO; +AMIO200T54 PO
== END ==
LOC: M PLAIMG 10:25
PROVIDERS: ATTEND Nurse Practitioner Family
DX: L40.0 Psoriasis vulgaris (principal); Z79.899 Other long term (current) drug therapy; Z51.81 Encounter for therapeutic drug level monitoring

== ENCOUNTER → 2025-06-03 | Outpatient (REF) | payer OTHER, MEDICAID ==
[2025-06-03 16:25] LABS: C REACTIVE PROTEIN QUANTITATIV 1.17 MG/DL (<1.0)
[2025-06-03 16:26] LABS: ALT/SGPT 11.0 U/L (7.0-40); AST/SGOT 20.0 U/L (<34); CALCIUM LEVEL 9.0 MG/DL (8.3-10.6); CARBON DIOXIDE LEVEL 28.0 MMOL/L (20-31); CHLORIDE LEVEL 103.0 MMOL/L (98-107); CREATININE FOR GFR 0.89 MG/DL (0.55-1.30); GLOMERULAR FILTRATION RATE 64.3 (>32); POTASSIUM SERUM 5.0 MMOL/L (3.5-5.1); SODIUM LEVEL 139.0 MMOL/L (136-145)
[2025-06-03 16:27] LABS: BASO # 0.1 10^3/uL (0.0-0.2); BASO % 0.5 % (0.0-1.0); EOS # 0.3 10^3/uL (0.0-0.5); EOS % 2.0 % (0.0-3.0); LYMPH # 3.8 10^3/uL (1.5-5.0); LYMPH % 24.7 % (24.0-44.0); MONO # 0.2 10^3/uL (0.0-0.8); MONO % 1.3 % (2.0-8.0); NEUTROPHILS # 10.8 10^3/uL (1.5-8.5); NEUTROPHILS % 71.0 % (36.0-66.0); PLATELET COUNT, AUTOMATED 342 10^3/uL (150-450)
[2025-06-03 16:37] LABS: ERYTHROCYTE SEDIMENTATION RATE 14 mm/hr (0-30)
== END ==
LOC: M SFHCADAM 08:29
PROVIDERS: ATTEND Internal Medicine Rheumatology
DX: L40.50 Arthropathic psoriasis, unspecified (principal)

== ENCOUNTER → 2025-08-02 | Outpatient (CLI) | payer OTHER, MEDICAID ==
[~2025-08-02] MED LIST changes: -COLC0.6T47 PO; +COLC0.6T53 PO
[2025-08-02 14:04] LABS: BASO # 0.1 10^3/uL (0.0-0.2); BASO % 0.7 % (0.0-1.0); EOS # 0.3 10^3/uL (0.0-0.5); EOS % 3.2 % (0.0-3.0); LYMPH # 2.7 10^3/uL (1.5-5.0); LYMPH % 26.3 % (24.0-44.0); MONO # 1.3 10^3/uL (0.0-0.8); MONO % 12.6 % (2.0-8.0); NEUTROPHILS # 5.7 10^3/uL (1.5-8.5); NEUTROPHILS % 56.5 % (36.0-66.0); PLATELET COUNT, AUTOMATED 413 10^3/uL (150-450)
[2025-08-02 14:27] LABS: ESTIMATED AVERAGE GLUCOSE 97.0 MG/DL (60-110)
[2025-08-02 14:30] LABS: CREATININE, URINE 73.6 MG/DL; MALB URINE SIEMENS < 3.0 MG/L
[2025-08-02 14:35] LABS: ALT/SGPT 15.0 U/L (7.0-40); AST/SGOT 23.0 U/L (<34); CALCIUM LEVEL 8.8 MG/DL (8.3-10.6); CARBON DIOXIDE LEVEL 31.0 MMOL/L (20-31); CHLORIDE LEVEL 102.0 MMOL/L (98-107); CREATININE FOR GFR 0.82 MG/DL (0.55-1.30); GLOMERULAR FILTRATION RATE 70.9 (>32); IRON (FE) 62.0 UG/DL (50-170); PERCENT SATURATION 25.5 % (13.2-45.0); POTASSIUM SERUM 5.0 MMOL/L (3.5-5.1); SODIUM LEVEL 135.0 MMOL/L (136-145)
[2025-08-02 14:37] LABS: VITAMIN B12 LEVEL 295.0 PG/ML (211-911)
== END ==
LOC: M LABDRWAD 08:35
PROVIDERS: ATTEND Nurse Practitioner Family
DX: D50.9 Iron deficiency anemia, unspecified (principal); E11.9 Type 2 diabetes mellitus without complications; I10 Essential (primary) hypertension

== ENCOUNTER → 2025-09-02 | Outpatient (REF) | payer OTHER, MEDICAID ==
[2025-09-02 16:46] LABS: BASO # 0.1 10^3/uL (0.0-0.2); BASO % 0.6 % (0.0-1.0); EOS # 0.3 10^3/uL (0.0-0.5); EOS % 1.9 % (0.0-3.0); LYMPH # 2.4 10^3/uL (1.5-5.0); LYMPH % 16.5 % (24.0-44.0); MONO # 1.5 10^3/uL (0.0-0.8); MONO % 10.3 % (2.0-8.0); NEUTROPHILS # 10.1 10^3/uL (1.5-8.5); NEUTROPHILS % 70.1 % (36.0-66.0); PLATELET COUNT, AUTOMATED 382 10^3/uL (150-450)
[2025-09-02 16:48] LABS: ALT/SGPT 13.0 U/L (7.0-40); AST/SGOT 19.0 U/L (<34); C REACTIVE PROTEIN QUANTITATIV 0.72 MG/DL (<1.0); CALCIUM LEVEL 9.1 MG/DL (8.3-10.6); CARBON DIOXIDE LEVEL 30.0 MMOL/L (20-31); CHLORIDE LEVEL 100.0 MMOL/L (98-107); CREATININE FOR GFR 0.86 MG/DL (0.55-1.30); GLOMERULAR FILTRATION RATE 67.0 (>32); POTASSIUM SERUM 4.9 MMOL/L (3.5-5.1); SODIUM LEVEL 138.0 MMOL/L (136-145)
[2025-09-02 16:51] LABS: ERYTHROCYTE SEDIMENTATION RATE 18 mm/hr (0-30)
== END ==
LOC: M SFHCADAM 13:27
PROVIDERS: ATTEND Internal Medicine Rheumatology
DX: L40.50 Arthropathic psoriasis, unspecified (principal); M15.9 Polyosteoarthritis, unspecified; Z79.899 Other long term (current) drug therapy

== ENCOUNTER → 2025-11-02 | Outpatient (REF) | payer OTHER, MEDICAID ==
[2025-11-02 14:36] LABS: BASO # 0.1 10^3/uL (0.0-0.2); BASO % 0.9 % (0.0-1.0); EOS # 0.2 10^3/uL (0.0-0.5); EOS % 2.9 % (0.0-3.0); LYMPH # 2.2 10^3/uL (1.5-5.0); LYMPH % 26.8 % (24.0-44.0); MONO # 1.0 10^3/uL (0.0-0.8); MONO % 12.5 % (2.0-8.0); NEUTROPHILS # 4.6 10^3/uL (1.5-8.5); NEUTROPHILS % 56.5 % (36.0-66.0); PLATELET COUNT, AUTOMATED 399 10^3/uL (150-450)
[2025-11-02 14:52] LABS: CREATININE, URINE 90.6 MG/DL; MALB URINE SIEMENS 4.0 MG/L; MAU/CREAT RATIO 4.4 MCG/MG (0.0-30.0)
[2025-11-02 14:56] LABS: ALT/SGPT 16.0 U/L (7.0-40); AST/SGOT 23.0 U/L (<34); CALCIUM LEVEL 9.2 MG/DL (8.3-10.6); CARBON DIOXIDE LEVEL 29.0 MMOL/L (20-31); CHLORIDE LEVEL 103.0 MMOL/L (98-107); CHOLESTEROL LEVEL 154.0 MG/DL (<200); CHOLESTEROL RISK RATIO 4.04 (<5); CREATININE FOR GFR 0.87 MG/DL (0.55-1.30); GLOMERULAR FILTRATION RATE 66.1 (>32); IRON (FE) 105.0 UG/DL (50-170); LDL CHOLESTEROL 99.1 MG/DL (<100); NON-HDL-C 115.9 MG/DL; PERCENT SATURATION 41.2 % (13.2-45.0); POTASSIUM SERUM 4.8 MMOL/L (3.5-5.1); SODIUM LEVEL 139.0 MMOL/L (136-145); TRIGLYCERIDES LEVEL 84.0 MG/DL (<150)
== END ==
LOC: M LABDRWAD 12:57
PROVIDERS: ATTEND Nurse Practitioner
DX: E11.9 Type 2 diabetes mellitus without complications (principal); E78.5 Hyperlipidemia, unspecified; E03.9 Hypothyroidism, unspecified